=== PATIENT | male | born 1950 | race Caucasian/White ===

== ENCOUNTER 2017-05-01 11:48 | Inpatient (IN) ==
[2017-05-01] MEDS ORDERED: NS 1,000 ML IV ONE (12:22)
[2017-05-01] MEDS ORDERED: LOMOTIL PO ONE (12:23)
[2017-05-01 12:38] LABS: MANUAL DIFF NEEDED? NO
[2017-05-01 12:56] LABS: ALBUMIN 4.8 g/dL (3.5-5.0); CALCIUM 9.3 mg/dL (8.8-10.2); TOTAL BILIRUBIN 1.42 mg/dL (0.20-1.00); TOTAL PROTEIN 8.5 g/dL (6.3-8.3)
--- NOTE | 2017-05-01 13:01 | Diag Imaging Result Doc PS360 ---
EXAM: FLAT/UPRIGHT ABD/1 VIEW CHEST INDICATION: abdominal pain TECHNIQUE: 4 views COMPARISON: Chest radiograph dated 07/11/2016 FINDINGS: There is mild gaseous distention of several loops of small bowel with air-fluid levels. This is nonspecific. Consider ileus versus low-grade partial bowel obstruction. There is no evidence of large volume free abdominal gas. There is no evidence of organomegaly. There is suggestion of minimal subsegmental atelectasis versus scarring at the left lung base. The lungs are grossly clear, otherwise. Cardiac silhouette is stable. IMPRESSION: Nonspecific mild distention of small bowel. Consider ileus versus partial obstruction. Electronically signed by Herb Brown 05/01/2017 12:59 PM
[2017-05-01 13:24] LABS: BASO% 0.3 % (0.0-0.8); EOS% 1.7 % (0.0-10.0); HEMATOCRIT 59.4 % (42.0-52.0); HEMOGLOBIN 20.4 g/dL (14.0-18.0); LYMPH% 23.8 % (20.5-51.1); MCH 33.4 PG (27-31); MCHC 34.3 g/dL (33-37); MCV 97.4 FL (81-99); MONO% 17.4 % (1.7-9.3); MPV 11.5 FL (7.4-10.4); NEUT% 56.8 % (42.2-75.2); PLT 157 X1000 (130-400)
[2017-05-01 13:25] LABS: EOS# 0.11 X1000 (0.0-0.7); LYMPH# 1.52 X1000 (1.2-3.4); MONO# 1.11 X1000 (0.11-0.59)
--- NOTE | 2017-05-01 13:42 | PROVIDER DOCUMENTATION ---
This chart was entered by Darion Cabrera Scribe, acting as scribe for Doug Hardy MD. HPI-Abdominal Pain/GI Problem - General Chief Complaint: Abdominal Pain Stated Complaint: DIARRHEA,BODY CRAMPS Time Seen by Provider: 05/01/17 12:12 Source: patient Allergies/Adverse Reactions: Patient Allergies Allergy/AdvReac Type Severity Reaction Status Date / Time No Known Allergies Allergy Verified 05/01/17 12:37 Home Medications: Home Medication List Medication Instructions Recorded Confirmed Last Taken Type Clonidine HCl 0.1 mg PO BID 01/17/16 05/01/17 05/01/17 07:00 History Fluticasone 50 Mcg Nasal [place] 2 spray IN DAILY 01/17/16 05/01/17 04/30/17 History [Flonase] Hydralazine [Apresoline] 25 mg PO BID 01/17/16 05/01/17 05/01/17 07:00 History Hydrochlorothiazide 25 mg PO DAILY 01/17/16 05/01/17 05/01/17 07:00 History Meloxicam [Mobic] 15 mg PO DAILY 01/17/16 05/01/17 05/01/17 07:00 History Methocarbamol [Robaxin-750] 750 mg PO TID PRN 01/17/16 05/01/17 05/01/17 07:00 History Omeprazole [Prilosec] 40 mg PO DAILY@0700 01/17/16 05/01/17 05/01/17 07:00 History Paroxetine [Paxil] 20 mg PO BID 01/17/16 05/01/17 05/01/17 07:00 History Folic Acid 1 mg PO DAILY #0 tablet 01/23/16 05/01/17 05/01/17 07:00 Rx Levetiracetam [Keppra] 1,500 mg PO BID #120 tablet 07/02/16 05/01/17 05/01/17 07 :00 Rx Duloxetine HCl [Cymbalta] 60 mg PO DAILY 07/12/16 05/01/17 Unknown History Donepezil [Aricept] 5 mg PO QAM #0 tablet 07/15/16 05/01/17 05/01/17 07:00 Rx Gabapentin [Neurontin] 400 mg PO TID #90 capsule 07/15/16 05/01/17 05/01/17 12: 00 Rx Hydroxyzine HCl [Hydroxyzine HCl] 25 mg PO DAILY PRN 05/01/17 05/01/17 04/30/17 21:00 History - History of Present Illness-ABD Nature of Presenting Problems: patient is a 66 y/o M that presents with 4 days of abdominal cramping and diarrhea. no n/v, fever/chills Abdominal Pain Onset Location: reports: generalized abdomen Quality of Pain: reports: cramping Severity in ED: reports: moderate Onset/Duration: reports: gradual, 4 days ago Timing: reports: still present Activities at Onset: reports: none Modifying Factors: improves with: nothing Associated Symptoms: reports: diarrhea, nausea. denies: chest pain, fever/ chills, genitourinary problems, shortness of breath, vomiting Similar Symptoms Previously?: Yes Recently seen or treated by another doctor?: No Review of Systems - Adult - REVIEW OF SYSTEMS - ADULT Constitutional: denies: chills, fever Eyes: reports: no symptoms reported Ears, Nose, Mouth & Throat: reports: no symptoms reported Cardiovascular: reports: no symptoms reported Respiratory: denies: cough, shortness of breath, wheezing Gastrointestinal: reports: abdominal pain, diarrhea. denies: nausea, vomiting Genitourinary: reports: no symptoms reported Musculoskeletal: reports: no symptoms reported Integumentary: reports: no symptoms reported Neurological: reports: no symptoms reported Psychiatric: reports: no symptoms reported Endocrine: reports: no symptoms reported Hematologic/Lymphatic: reports: no symptoms reported Allergic/Immunologic: reports: no symptoms reported All Other Systems: Reviewed and Negative Past History - Adult - PAST MEDICAL HISTORY-ADULT Review of Records: reports: Old Records Reviewed, Nursing Assessment Review, Medications Reviewed Cardiovascular: reports: HTN, IA Obstetrical/Gynecological: reports: denies history Genitourinary: reports: denies history Musculoskeletal: reports: denies history Neurological: reports: CVA, Seizures/Epilepsy Psychiatric: reports: anxiety Endocrine/Immune: reports: denies history Other Conditions: reports: denies history Additional History: lymphoma - PRIOR SURGERIES/PROCEDURES Surgical/Procedure History: reports: bowel surgery (colon resection), other ( finger amputation ) - IMMUNIZATION STATUS Childhood Immunizations: See Nurse Assessment Flu Vaccine: See Nurse Assessment - FAMILY HISTORY Family History: reviewed, not pertinent Physical Exam-General - PHYSICAL EXAM-ADULT Initial Vital Signs Reviewed: Yes - CONSTITUTIONAL General Appearance: alert, mild distress - EYES Eyes: PERRL/EOMI, pink conjunctivae - HEAD, EARS, NOSE, MOUTH & THROAT HENMT: normocephalic/atraumatic, normal ENT inspection, other (dry oral mucosa) - NECK Neck: full range of motion, normal inspection - RESPIRATORY Respiratory: lungs clear, normal breath sounds, no respiratory distress, no accessory muscle use - CARDIOVASCULAR Cardiovascular: no gallop, no murmur, tachycardia - GASTROINTESTINAL (ABDOMEN) Abdominal Exam: normal bowel sounds, soft, no organomegaly, no pulsatile mass, tenderness (generalized) - MUSCULOSKELETAL Extremity: normal range of motion, normal inspection - SKIN Integumentary: normal color, warm/dry - NEUROLOGIC Neurologic: 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 as tested, no motor/sensory deficits - PSYCHIATRIC Psych/Mental Status: normal mood/affect, normal thought content, oriented x 3 Progress - PLAN OF CARE/RESULTS Progress/Plan/Lab Results: Vital Signs - 8 hr 05/01/17 12:01 Temperature 98.0 F Pulse Rate 133 H Respiratory Rate 18 Blood Pressure 150/100 O2 Sat by Pulse Oximetry 100 Orders Category Date Time Status CBC WITH ELECTRONIC DIFF [HEME] Stat Lab 05/01/17 12:18 Uncollected COMPREHENSIVE METABOLIC PANEL [CHEM] Stat Lab 05/01/17 12:18 Ordered Vital Signs Temp Pulse Resp BP Pulse Ox 05/01/17 12:01 98.0 F 133 H 18 150/100 100 No Known Allergies Allergy (Verified 05/01/17 12:37) Clonidine HCl 0.1 mg PO BID 01/17/16 Fluticasone 50 Mcg Nasal [place] [Flonase] 2 spray IN DAILY 01/17/16 Hydralazine [Apresoline] 25 mg PO BID 01/17/16 Hydrochlorothiazide 25 mg PO DAILY 01/17/16 Meloxicam [Mobic] 15 mg PO DAILY 01/17/16 Methocarbamol [Robaxin-750] 750 mg PO TID PRN 01/17/16 Omeprazole [Prilosec] 40 mg PO DAILY@0700 01/17/16 Paroxetine [Paxil] 20 mg PO BID 01/17/16 Folic Acid 1 mg PO DAILY #0 tablet 01/23/16 Levetiracetam [Keppra] 1,500 mg PO BID #120 tablet 07/02/16 Duloxetine HCl [Cymbalta] 60 mg PO DAILY 07/12/16 Donepezil [Aricept] 5 mg PO QAM #0 tablet 07/15/16 Gabapentin [Neurontin] 400 mg PO TID #90 capsule 07/15/16 Hydroxyzine HCl [Hydroxyzine HCl] 25 mg PO DAILY PRN 05/01/17 I&O 04/30/17 05/01/17 05/02/17 06:59 06:59 06:59 Output Total Balance - / -30 Laboratory 05/01/17 05/01/17 12:29 12:29 WBC 6.39 RBC 6.10 Hgb 20.4 H* Hct 59.4 H MCV 97.4 MCH 33.4 H MCHC 34.3 RDW Std Deviation 14.7 H Plt Count 157 MPV 11.5 H Immature Gran % (Auto) 0.0 Neut % (Auto) 56.8 Lymph % (Auto) 23.8 [place] % (Auto) 17.4 H Eos % (Auto) 1.7 Baso % (Auto) 0.3 Immature Gran # (Auto) 0.00 Neut # (Auto) 3.63 Lymph # (Auto) 1.52 [place] # (Auto) 1.11 H Eos # (Auto) 0.11 Baso # (Auto) 0.02 Sodium 131 L Potassium 4.0 Chloride 89 L Carbon Dioxide 27 Anion Gap 15 BUN 32 H Creatinine 1.8 H Estimated GFR/1.73 m2 38 BUN/Creatinine Ratio 18 Glucose 107 H Calculated Osmolality 270 Calcium 9.3 Total Bilirubin 1.42 H AST 35 H ALT 33 Alkaline Phosphatase 87 Total Protein 8.5 H Albumin 4.8 Globulin 3.7 Albumin/Globulin Ratio 1.3 Result Diagrams: 05/01/17 12:29 05/01/17 12:29 - XRAY 1 XRAY Study: Chest, Abdomen Impression: Abnormal XRAY Interpretation: nonspecific mild distention of small bowel,consider ileus vs partial obstru - CONSULTS/PCP/HOSPITALIST Notification #1 *Consult/PCP/Hospitalist*: Doc with hospitalist Time Discussed: 13:39 Reason/Comments: will admit Consult Disposition: Will see in ED, Admit Departure - Departure Date of Disposition Decision: 05/01/17 Time of Disposition Decision: 13:39 DIAGNOSIS: Volume depletion, gastrointestinal loss, Ileus Disposition: ADMITTED INPATIENT 09 Certified Medical Emergency: Emergent Condition: Stable Referrals and Follow-Ups: Adeline Burns CRNP [Primary Care Provider] - - Critical Care Note This patient required my direct & personal management of CC.: No Attestation - Physician/ ALEJANDRO Attestation The physician spent face to face time with patient:: Yes Advanced Practice Provider documentation review:: Supervising physician onsite and consulted in the evaluation and care of this patient. The physician did have a face to face encounter with the patient. This chart was documented by the indicated scribe, (Darion Cabrera, Esc[place]) and accurately reflects the services I performed and decisions made by me, Doug Hardy MD, as attested by the provider's signature.
[2017-05-01 13:47] LABS: URINE CULTURE NEEDED? NO; URINE SOURCE CLEAN CATCH
[2017-05-01 14:02] LABS: URINE MICRO REVIEW NEEDED? YES
[2017-05-01 14:08] LABS: BILIRUBIN URINE SMALL (NEGATIVE); BLOOD URINE NEGATIVE (NEGATIVE); COLOR ORANGE; GLUCOSE URINE NEGATIVE (NEGATIVE); LEUKOCYTES URINE NEGATIVE (NEGATIVE); NITRITE URINE NEGATIVE (NEGATIVE); PH URINE 5.5; PROTEIN URINE 50 mg/dL (NEGATIVE); SP GRAVITY URINE 1.029; TURBIDITY URINE HAZY (CLEAR); UR EPITHELIAL CELLS <10 /HPF (<10); URINE BACTERIA NEGATIVE /HPF; URINE RBC <10 /HPF (<10); URINE WBC <10 /HPF (<10); UROBILINOGEN URINE 2 mg/dL (NORMAL)
--- NOTE | 2017-05-01 14:20 | Diag Imaging Result Doc PS360 ---
ABDOMEN/PELVIS W/O CONTRAST - 05/01/2017 INDICATION: ileus, aimee TECHNIQUE: A CT dose reduction protocol was used. COMPARISON: 05/27/2014 FINDINGS: There is some COPD and pulmonary scarring in the lung bases similar to prior. There has been total colectomy with right lower quadrant ileostomy. Most of the distal small bowel is slightly dilated up to about 3 cm. The appearance is nonspecific. No transition point. There are calcified gallstones in the gallbladder. No gallbladder distention or inflammation. No radiodense renal stones. No hydronephrosis or hydroureter. No free air or free fluid. Urinary bladder, prostate, and rectal stump are normal. There are advanced degenerative changes of the spine. No acute or suspicious bony lesion. IMPRESSION: 1. Total colectomy with right lower quadrant ileostomy. There are some mildly dilated loops of small bowel distally that appear nonspecific. Overall nonobstructed. 2. Gallstones in the gallbladder. 3. No acute renal abnormality. Electronically signed by Seven Hardwick 05/01/2017 2:17 PM
[2017-05-01 14:22] LABS: IRON SATURATION 13 %; TIBC 418 ug/dL; TOTAL IRON 55 ug/dL (53-167); UNBOUND IRON 363 ug/dL (112-346)
[2017-05-01 14:31] LABS: URINE CASTS NONE SEEN
[2017-05-01] MEDS ORDERED: ZOFRAN IV PRN (14:46)
[2017-05-01] MEDS ORDERED: HYDROXYZINE PO PRN (14:46)
[2017-05-01] MEDS ORDERED: ROBAXIN PO PRN (14:46)
[2017-05-01] MEDS ORDERED: LEVAQUIN 500 MG/D5W 500 MG/100 ML IVPB IV SCH (17:15)
[2017-05-01] MEDS: FLAGYL 500 MG/NS 500 MG/100 ML IVPB IV SCH (17:45)
[2017-05-01] MEDS: NEURONTIN PO SCH (17:46)
--- NOTE | 2017-05-01 19:59 | HISTORY AND PHYSICAL ---
PRIMARY CARE PHYSICIAN: SANDRA Lu. CHIEF COMPLAINT: Abdominal pain, and generalized cramping. HISTORY OF PRESENT ILLNESS: Mr. Lynch is a 66-year-old, male with a history of B-cell lymphoma, hypertension, depression and anxiety, GERD and is status post colectomy with colostomy who presents to our facility with a 2 days of generalized cramping, bilateral lower quadrant abdominal pain as well as right upper quadrant abdominal pain and worsening diarrhea. He reports he has had 10-11 bowel movements that have completely filled up his colostomy bag. He reports generalized muscle cramping especially in his hands. He denies any hematochezia , but does report seeing what he calls black tobacco-looking substance in his stool. He has been nauseous but had not vomited. He denies any chest pain or shortness of breath. No fevers or chills. When he got to the ER today he had labs and diagnostics done. He was noted to be hemoconcentrated with a hemoglobin of 20.4 and hematocrit 59.4. He was also noted to have an acute kidney injury, elevated liver function tests and mild hyponatremia. Abdomen x-ray revealed ileus versus partial small-bowel obstruction. CT of the abdomen and pelvis subsequently showed mild dilated loops of small bowel that appear nonspecific. Otherwise there was no acute abnormalities , gallstones in the gallbladder were noted. He is hemodynamically stable. He is now going to be admitted for further treatment and evaluation. PAST MEDICAL HISTORY: 1. History B-cell lymphoma. 2. 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 3. Hypertension. 4. GERD. 5. Chronic pain. 6. Depression and anxiety. 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 ALLERGIES: Morphine and prednisone. SOCIAL HISTORY: He is . He is disabled. He reports he rarely drinks although review of history shows that he has a significant alcohol history. He denies smoking cigarettes but does report about a one-third can of oral tobacco a day. FAMILY HISTORY: Noncontributory. REVIEW OF SYSTEMS: Fourteen-point review of systems obtained and found to be negative with the exception of the HPI. HOME MEDICATIONS: Clonidine 0.1 mg p.o. b.i.d. Aricept 5 mg a.m. Cymbalta 60 mg daily. Fluticasone 2 sprays inhaled daily. Folic acid 1 mg daily. Neurontin 400 mg p.o. 3 times daily. Apresoline 25 mg b.i.d. Hydrochlorothiazide 25 mg p.o. daily. Hydroxyzine 25 mg daily. Keppra 1500 mg b.i.d. Mobic 1500 mg daily. Robaxin 750 mg p.o. 3 times daily. Prilosec 40 mg daily. Paxil 20 mg b.i.d. PHYSICAL EXAMINATION: VITAL SIGNS: Blood pressure is 150/54, heart rate is 96, respiratory rate is 20 , O2 saturation 96% on room air, temperature is 98.6 degrees. GENERAL: This is a well-developed, well-nourished, male, lying in hospital bed in no acute distress. NEUROLOGIC: He is awake, alert, oriented and follows commands without focal deficits. HEENT: Head is atraumatic and normocephalic. His pupils are equal, round, and reactive to light. Oral mucosa is dry. Trachea is midline. There is no JVD. CHEST: Clear to auscultation bilaterally. CV: Regular rate and rhythm. S1-S2 is noted. No murmurs. GI: Soft, with significant pain to palpation on both lower quadrants, and in the right upper quadrant he has no rigidity, and colostomy is noted to the right lower quadrant. EXTREMITIES: Without edema, clubbing or cyanosis. Pulses are palpable bilaterally. DIAGNOSTIC DATA: Abdomen x-ray and CT, please see HPI. WBC 6.39, hemoglobin 20.4, hematocrit 59.4, platelet count 157,000. Sodium 131, potassium 4.0, chloride 89, CO2 27 , anion gap 15, BUN 32, creatinine 1.8, glucose 107, calcium 9.3, magnesium 2. Iron 55, TIBC 418, percent saturation 13, unsaturated iron binding 363, T bilirubin 1.42, AST 35, ALT 33. Protein 8.5 , albumin 4.8. B12 533, folate 20.7. UA is negative for acute process. Random creatinine 534.9, random sodium 10, chloride less than 10. ASSESSMENT AND PLAN: 1. Abdominal pain and diarrhea: We are going to check stool studies and start Levaquin and Flagyl. We will make sure and check for Clostridium difficile. Will continue IV fluids and antiemetics. 2. Significant volume depletion with hemoconcentration: We will continue aggressive IV fluids and follow his hemoglobin and hematocrit. 3. Acute kidney injury: Likely volume related on top of use of the hydrochlorothiazide and Mobic. Will discontinue does medications and continue IV fluids. CT of the abdomen did not show any obstruction. 4. Seizure disorder: Continue Keppra, chronic and stable. 5. Hypertension: Will continue his clonidine and add p.r.n. medication if necessary. 6. Hypovolemic hyponatremia: We will continue IV fluids and hold the hydrochlorothiazide. 7. If there is no improvement in his abdominal pain and diarrhea would consider GI consultation. We are awaiting stool studies. 8. Deep vein thrombosis prophylaxis with sequential compression devices. 9. Further recommendations to follow. Dictated by SANDRA Carias for Padilla Scott MD cc: SANDRA Carias MD I have seen and examined patient and have discussed the above plan with the patient. High Output in ileostomy Abdominal pain Volume depletion MTDD
[2017-05-01] MEDS ORDERED: HEPARIN SUBQ SCH (21:00)
[2017-05-01] MEDS: NS 1,000 ML IV SCH (21:22)
[2017-05-01] MEDS: APRESOLINE PO SCH (21:31)
[2017-05-01] MEDS: KEPPRA PO SCH (21:31)
[2017-05-01] MEDS: PAXIL PO SCH (21:31)
[2017-05-01] MEDS: CATAPRES PO SCH (21:31)
[2017-05-02] MEDS: FLAGYL 500 MG/NS 500 MG/100 ML IVPB IV SCH ×3 (00:24→10:57)
[2017-05-02] MEDS: NS 1,000 ML IV SCH ×4 (02:30→17:59)
[2017-05-02] MEDS: PRILOSEC PO SCH (06:08)
[2017-05-02 06:10] LABS: HEMATOCRIT 52.6 % (42.0-52.0); HEMOGLOBIN 18.1 g/dL (14.0-18.0); MCH 34.6 PG (27-31); MCHC 34.4 g/dL (33-37); MCV 100.6 FL (81-99); MPV 11.5 FL (7.4-10.4); RBC 5.23 XMIL (4.7-6.1)
[2017-05-02 06:18] LABS: CALCIUM 7.8 mg/dL (8.8-10.2); POTASSIUM 4.4 mmol/L (3.5-5.1)
[2017-05-02] MEDS: FLONASE NAS SCH (09:40)
[2017-05-02] MEDS: KEPPRA PO SCH ×2 (09:41→21:35)
[2017-05-02] MEDS: CYMBALTA PO SCH (09:41)
[2017-05-02] MEDS: NEURONTIN PO SCH ×3 (09:41→17:59)
[2017-05-02] MEDS: CATAPRES PO SCH ×2 (09:41→21:35)
[2017-05-02] MEDS: FOLIC ACID PO SCH (09:41)
[2017-05-02] MEDS: ARICEPT PO SCH (09:41)
[2017-05-02] MEDS: PAXIL PO SCH ×2 (09:41→21:35)
[2017-05-02] MEDS: APRESOLINE PO SCH ×2 (09:42→21:35)
--- NOTE | 2017-05-02 14:59 | PROGRESS NOTE ---
DATE: 05/02/2017 SUBJECTIVE: Today Mr. Lynch refers to be doing a lot better. He continues to have a high output from his ostomy bag, but otherwise he does not have any major complaint except for mild abdominal discomfort. OBJECTIVE: Vital Signs: Blood pressure is 112/71, pulse of 78, respirations 16, temperature 97.7 degrees. General: Mr. Lynch is a 66-year-old male. He is in bed, does not seem to be in any remarkable distress. HEENT: Mucosa is slightly dry. Anicteric. Acyanotic. Neck: Supple. Chest: Clear. Cardiovascular: Regular rate and rhythm. No murmurs, no rubs. No gallops. Abdomen: Soft. There is an old anterior surgical scar in the in the entire anterior midline abdominal wall. There is a right side ostomy bag. Extremities: No pedal edema. Central Nervous System: The patient is awake, alert, and oriented x4. There is no focal neurological deficit. LABORATORY DATA: WBC is 5.88, hemoglobin is 18.1, platelet count of 120,000. Chemistry is reviewed. Creatinine is down to 1.8, BUN is 36. A CT scan of the abdomen and pelvis shows gallstone in the gallbladder. No acute renal abnormality. Total colectomy with right lower quadrant ileostomy. ASSESSMENT: 1. Abdominal pain with high ileostomy output, likely secondary to enteritis. So far, stool cultures have been unremarkable. Clostridium difficile is negative. I will, therefore, discontinue the current antibiotics since I do not think this is infectious. 2. Volume depletion with hemoconcentration. We are going to continue with the intravenous fluids. 3. Acute kidney injury secondary to dehydration. 4. History of seizure disorders. 5. Hypovolemic hyponatremia. We will continue with the intravenous fluids. 6. Cholelithiasis. This could potentially also be causing some of his discomfort. However, the patient does not have clinical manifestations of acute cholecystitis. We will, however, do a right upper quadrant limited ultrasound to rule this out. cc: Padilla Scott MD
--- NOTE | 2017-05-02 16:13 | Diag Imaging Result Doc PS360 ---
EXAM: US GB < RUQ (LIMITED) HISTORY: cholelithiasis. R/O Cholecystitis TECHNIQUE: Right upper quadrant ultrasound COMMENT: The liver is hyperechoic. The inferior vena cava is not well demonstrated. The aorta is obscured. Right kidneys without evidence of hydronephrosis or mass. There are multiple stones in the gallbladder with shadowing. The gallbladder is nondistended. There is no sonographic Beverly sign and no evidence of biliary dilatation, the common bile duct measuring 5 mm. There is antegrade flow in the portal vein. The pancreas is largely obscured. There are no abnormal fluid collections present. IMPRESSION: Cholelithiasis. No evidence of acute cholecystitis. Hepatic steatosis. Electronically signed by Kulwant Thompson 05/02/2017 4:11 PM
--- NOTE | 2017-05-02 18:48 | CONSULTATION ---
DATE OF CONSULTATION: 05/02/2017 ATTENDING PHYSICIAN: Dr. Scott. PRIMARY CARE PHYSICIAN: Nurse Practitioner Adeline Burns. REASON FOR CONSULTATION: Diarrhea. HISTORY OF PRESENT ILLNESS: Mr. Lynch is a 66-year-old male who has a history of total colectomy and end ileostomy secondary to toxic megacolon secondary to C. difficile colitis 2 years ago, history of diffuse large B-cell lymphoma status post chemotherapy being followed by Dr. Ochoa and Dr. Annabel Yeh, has been in remission for the last 2 years who was admitted to the hospital yesterday evening for abdominal cramping and diarrhea, increasing ostomy output. Per the patient he was feeling fine until Friday when he started having abdominal cramping in the right upper quadrant and worsening diarrhea. He had to empty his colostomy bag more than usual and he was having liquid watery stools which were brown in color. He also noted some dark stools but on admission his hematocrit was above normal and he was hemoconcentrated secondary to dehydration. In the hospital he had stool studies done which are currently in lab and he was given IV fluids and he is feeling better. CT scan showed mild dilated loops of small bowel nonspecific and also showed evidence of gallstones in the gallbladder. The patient denies any fevers , rigors, or chills. He does feel nauseous and throws up. He denies any vomiting blood. Patient denies any history of sick contacts. He ate [employer] sports the day before his symptoms started and he bought them from a local [employer]. The patient denies any similar illness in the recent past. PAST MEDICAL HISTORY: 1. Diffuse large B-cell lymphoma, being followed Dr. Ochoa and currently in remission for the last [address] Ochoa in March 2017. 2. History of toxic megacolon requiring total colectomy. 3. C. difficile colitis. 4. Hypertension. 5. GERD. 6. Chronic pain. 7. Depression, anxiety. SURGICAL HISTORY: Complete colectomy and end ileostomy, amputation of index finger with MRSA, cervical laminectomy, Port-A-Cath placement, colostomy. ALLERGIES: To morphine and prednisone. SOCIAL HISTORY: He is . He is disabled. He has a history of chewing tobacco. He does have history of alcohol use in the past. FAMILY HISTORY: Noncontributory. REVIEW OF SYSTEMS: Denies any current fevers, rigors, chills, chest pain, shortness of breath, dyspnea. Denies any genitourinary complaints. Denies history of vomiting or passing blood in the stools. HOME MEDICATIONS: Were reviewed. MEDICATIONS IN THE HOSPITAL INCLUDED: Clonidine, donepezil, duloxetine, fluticasone, folic acid, gabapentin, hydralazine, lactobacillus, Keppra, methocarbamol, IV fluids 175 mL/ h, Prilosec, Zofran, paroxetine and 1 dose of Lomotil. He is currently NPO. PHYSICAL EXAMINATION: Temperature 97.7 degrees, pulse rate of 70, respiratory rate 16, blood pressure 112/71, saturating 90% on room air. Body weight of 206 pounds. BMI of 32.3 kg.General Appearance: Obese, lying in bed, in no acute. HEENT: No pallor. No icterus. Pupils equal, react to light. Neck: Supple. Chest: Chest is decreased. Cardiac: Regular rhythm. Abdomen: Soft, nontender, nondistended. Bowel sounds present. No guarding. No rebound. Ileostomy noted in the right lower quadrant and the stool was dark brown in color. No blood noted. Extremities: No cyanosis, clubbing, edema. Neurologic: He is alert, awake, and oriented. LABS: His hemoglobin and hematocrit is 18.1, 52.6. White count 5.8, platelet count of 120,000, MCV 100.6. Sodium 130, potassium 4.4, chloride 93, bicarb 27, anion gap 14, BUN 36, creatinine 1.4, glucose of 101, calcium is 7.8, phosphorus 3.7, magnesium 2, iron of 55, TIBC 418, percent measuring 13, ferritin of 129. AST 35, ALT 33, total bilirubin is 1.42. Alkaline phosphatase of 87, total protein 8.5, albumin of 4.8. Urinalysis showing positive protein, trace ketones, small bilirubin. He just came back from abdominal ultrasound which showed cholelithiasis and no evidence of acute cholecystitis, hepatic steatosis, CBD measuring 5 mm, antegrade flow in portal vein. CT scan abdomen and pelvis on 05/01/2017 showed total colectomy, right lower quadrant ileostomy and some mildly dilated loops of small intestine distally that appears nonspecific. Overall non obstructed. 2) Gallstones in the gallbladder. 3) No acute renal abnormality. Abdominal x-ray done on 05/01/2017 showed nonspecific mild distention of small bowel. Consider ileus versus partial obstruction. Stool studies done ova and parasites, negative. Stool Hemoccult is positive. C. difficile toxin negative. Antigen negative. Stool for white cells, few stool culture preliminary, no enteric pathogen. IMPRESSION AND PLAN: 1. Acute onset of diarrhea with dehydration and abdominal pain likely suggesting gastroenteritis. Will follow up the stool studies. It could be viral gastroenteritis. We will continue with supportive IV fluids. We will start him on Culturelle 1 capsule p.o. b.i.d. We will follow up on his hematocrit. He has a positive Hemoccult. 2. Hemoconcentration. Continue with aggressive IV fluids. We will start the patient on a full liquid diet now and advance as tolerated. 3. History of seizure disorder. Being managed by the primary team. 4. Question of alcohol use at home. We will re-educated the patient about limiting alcohol intake and starting a multivitamin once daily. 5. Elevated liver enzymes and ultrasound showing fatty liver. The patient is overweight. We counseled him about loosing weight and watching his liver enzymes as an outpatient. 6. Cholelithiasis. This could be contributing to some of his symptoms. If he continues to have abdominal pain then it might have to be evaluated by the Surgical Team. 7. We will check a hepatitis panel, ESTEBAN, and chronic liver disease workup as patient has elevated liver enzymes. 8. The above plan of care was discussed with the patient and all questions were answered. Further recommendations to follow pending hospital course. cc: MD Padilla Avilez MD Jennifer Beatty, CRNP MTDD
[2017-05-02] MEDS: CULTURELLE PO SCH (21:35)
[2017-05-03] MEDS: NS 1,000 ML IV SCH ×4 (01:45→14:33)
[2017-05-03] MEDS: PRILOSEC PO SCH (06:14)
[2017-05-03 06:35] LABS: HEMATOCRIT 45.1 % (42.0-52.0); HEMOGLOBIN 15.4 g/dL (14.0-18.0); MCH 34.7 PG (27-31); MCHC 34.1 g/dL (33-37); MCV 101.6 FL (81-99); MPV 11.3 FL (7.4-10.4); RBC 4.44 XMIL (4.7-6.1)
[2017-05-03 06:49] LABS: AGAP 11; BUN 22 mg/dL (8-22); CALCIUM 7.1 mg/dL (8.8-10.2); CHLORIDE 102 mmol/L (98-107); COSMO 271; POTASSIUM 3.5 mmol/L (3.5-5.1); SODIUM 134 mmol/L (136-145); TCO2 21 mmol/L (25-35)
[2017-05-03] MEDS: FLONASE NAS SCH (10:10)
[2017-05-03] MEDS: CULTURELLE PO SCH (10:10)
[2017-05-03] MEDS: CYMBALTA PO SCH (10:10)
[2017-05-03] MEDS: KEPPRA PO SCH (10:11)
[2017-05-03] MEDS: PAXIL PO SCH (10:11)
[2017-05-03] MEDS: ARICEPT PO SCH (10:11)
[2017-05-03] MEDS: NEURONTIN PO SCH ×2 (10:11→16:05)
[2017-05-03] MEDS: APRESOLINE PO SCH (10:11)
[2017-05-03] MEDS: FOLIC ACID PO SCH (10:11)
[2017-05-03] MEDS: CATAPRES PO SCH (10:11)
--- NOTE | 2017-05-03 11:48 | PROGRESS NOTE ---
DATE: 05/03/2017 SUBJECTIVE: Today Mr. Lynch refers to be doing a lot better. No abdominal pain. No shortness of breath. He says he has emptied his ileostomy bag only 2 times today. OBJECTIVE: Vital Signs: Blood pressure is 113/70, pulse of 65, respirations 16, temperature 97.9 degrees. General: Mr. Lynch is 66-year-old male. He is in bed, not seemingly distressed. HEENT: Mucosa is pink and moist. Anicteric. Acyanotic. Neck: Supple. Chest: Good air entry bilateral. No crepitations. No rhonchi. Cardiovascular: Regular rate and rhythm. Abdomen: Soft, nontender. There is an old anterior abdominal wall surgical scar. There is an ileostomy bag on the right abdominal wall. 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 There is no focal neurological deficit. LABORATORY DATA: WBC is 3.60, hemoglobin is down to 15.4, platelet count is 96,000. Sodium is 134, potassium is 3.5, chloride is 102, bicarb is 21. IMAGING STUDIES: Review of CT scan of the abdomen and pelvis shows gallstones in the gallbladder. A right upper quadrant ultrasound showed cholelithiasis, but no evidence of acute cholecystitis. There is hepatic steatosis. ASSESSMENT: 1. Abdominal pain with high ileostomy output secondary to gastroenteritis, this is improved. 2. Volume depletion with Hemoconcentration, improved. 3. Acute kidney injury, resolved. 4. History of seizure disorder noted. 5. Chronic hyponatremia. The patient seems to have on and off issues with his sodium, way back to October 2013, gets normalized and then goes down. He is on multiple medications which I think are contributing to that, including paroxetine, which is an SSRI. We have advised him to follow up with his primary care provider to see if they will be able to change that medication. Until then, we have advised that he does fluid restriction for now. 6. Cholelithiasis. The patient is not clinically in any acute cholecystitis, and a follow-up ultrasound also does not show any acute evidence of cholecystitis. He has been advised however to follow up with Surgery, so that they can evaluate him on an outpatient basis to make a decision when that can be removed. 7. Hepatic steatosis noted. 8. The patient has been evaluated by GI and multiple hepatitis studies have been ordered, some of which will not be ready until patient is discharged. So, in general, I think Mr. Lynch is doing a lot better today. Ileostomy output is considerably reduced, abdominal pain is resolved. We will going to give Mr. Lynch a regular diet today. If he is able to tolerate it, we will be able to discharge him later on today. cc: Padilla Scott MD
[2017-05-03 12:10] LABS: INR 1.08; PROTIME 11.4 Seconds (9.2-11.7); PTT 25.3 Seconds (22.0-36.0)
[2017-05-03 12:51] VITALS: BP 115/68
--- NOTE | 2017-05-03 17:44 | DISCHARGE SUMMARY ---
ADMISSION DATE: 05/01/2017 DISCHARGE DATE: 05/03/2017 DISPOSITION: Home. CONSULTATIONS DURING THIS ADMISSION: GI was consulted. Patient was seen by Dr. Ortiz. INVASIVE PROCEDURES DONE: None. IMAGING STUDIES OF SIGNIFICANCE: A CT scan of the abdomen showed total colectomy, gallstones in the gallbladder, no acute renal disease. An ultrasound of the abdomen showed cholelithiasis, no evidence of acute cholecystitis, and hepatic steatosis. FOLLOWUP: 1. Dr. Ortiz. 2. Dr. Lima for the cholelithiasis. PRIMARY CARE PROVIDER: SANDRA Lu. ADMISSION DIAGNOSES: 1. Abdominal pain and diarrhea. 2. Significant volume depletion and hemoconcentration. 3. Acute kidney injury. 4. History of seizure disorder. DIAGNOSES AT THE TIME OF DISCHARGE: 1. Abdominal pain with high ileostomy output, secondary to gastroenteritis. This has improved. 2. Volume depletion with hemoconcentration. Improved. 3. Acute kidney injury. This is resolved. Patient's hydrochlorothiazide has been withheld. 4. History of seizure disorder. Noted. 5. Chronic hyponatremia. Patient has been advised to withhold the hydrochlorothiazide, and also discuss with primary care provider about Paxil. 6. Cholelithiasis without cholecystitis. The patient is advised to follow up with Surgery. 7. Hepatic steatosis. A lot of GI workup with still pending results. Patient will review this with Dr. Ortiz. DISCHARGE MEDICATIONS: 1. Methocarbamol 750 p.o. t.i.d. 2. Paroxetine 20 mg b.i.d. 3. Omeprazole 40 mg daily. 4. Clonidine 0.1 b.i.d. 5. Hydralazine 25 mg b.i.d. 6. Folic acid 1 mg daily. 7. Levothyroxine 1500 b.i.d. 8. Cymbalta 60 mg daily. 9. Donepezil 5 mg daily. 10. Gabapentin 400 three times per day. 11. Lactobacillus 1 tablet p.o. b.i.d. MEDICATIONS THAT HAVE BEEN DISCONTINUED: Hydrochlorothiazide because of renal problems and sodium issues. Also, meloxicam because of acute kidney injury on presentation. CHIEF COMPLAINT: Abdominal pain. HISTORY OF PRESENTING COMPLAINT: Mr. Lynch is a 66-year-old male who has a total colectomy because of C. difficile infection. The patient with an ileostomy bag. Came in because of excessive output. A CT scan of the abdomen was done, which showed slightly dilated up to 3 cm of distal small bowel. Appearance was nonspecific. This was interpreted to be enteritis, likely viral etiology. Patient was admitted for further medical care. HOSPITAL COURSE: IV fluid was started. Initially, antibiotics was given. However, upon all cultures becoming negative, we discontinued the antibiotics. GI was consulted. Patient was seen by Dr. Ortiz. Because of the mildly elevated liver enzymes and issues with liver on imaging, he requested further lab work to look for chronic liver disease, which the results will be reviewed with him on an outpatient basis. Today, Mr. Lynch refers to be doing fine, has very reduced output in the ostomy bag, and he is ready to be discharged. He is going to follow up with his primary care doctor. He is also going to follow up with Dr. Ortiz and Dr. Lima for cholelithiasis. At the time of discharge, pending labs were antitrypsin, ESTEBAN, antimitochondrial, ceruloplasmin, and hepatitis panel, which were all pending. Patient will review this with Dr. Ortiz. TIME SPENT FOR DISCHARGE: 37 minutes. cc: Padilla Scott MD
--- NOTE | 2017-05-05 06:38 | EKG Report ---
Test Performed on : 05/01/2017 2:23:44 PM Test Reason : PALPS Blood Pressure : / mmHG Vent. Rate : 095 BPM Atrial Rate : 095 BPM P-R Int : 180 ms QRS Dur : 066 ms QT Int : 344 ms P-R-T Axes : 048 007 067 degrees QTc Int : 432 ms Normal sinus rhythm. Normal ECG No previous ECGs available Unconfirmed Result
[2017-05-05 10:35] LABS: HEPATITIS PROFILE ACUTE SEE COMMENTS
== END 2017-05-03 16:06 | disposition home or self-care (01) ==
LOC: ED 11:48 → 4N 14:13
PROVIDERS: ATTEND Internal Medicine

== ENCOUNTER 2019-07-22 04:56 | Inpatient (IN) ==
[2019-07-22] MEDS ORDERED: ZOFRAN IV ONE (05:36)
[2019-07-22] MEDS ORDERED: NS 1,000 ML IV ONE (05:36)
[2019-07-22] MEDS ORDERED: MORPHINE IV ONE (05:38)
--- NOTE | 2019-07-22 05:39 | PROVIDER DOCUMENTATION ---
HPI-Abdominal Pain/GI Problem - General Chief Complaint: Abdominal Pain Stated Complaint: STOMACH PAIN Time Seen by Provider: 07/22/19 05:24 Allergies/Adverse Reactions: Patient Allergies Allergy/AdvReac Type Severity Reaction Status Date / Time No Known Allergies Allergy Verified 07/22/19 07:50 Home Medications: Home Medication List Medication Instructions Recorded Confirmed Last Taken Type Clonidine HCl 0.1 mg PO BID 01/17/16 07/22/19 05/01/17 07:00 History Omeprazole [Prilosec] 40 mg PO DAILY@0700 01/17/16 07/22/19 05/01/17 07:00 History Levetiracetam [Keppra] 1,500 mg PO BID #120 tablet 07/02/16 07/22/19 05/01/17 07:00 Rx Gabapentin [Neurontin] 400 mg PO TID #90 capsule 07/15/16 07/22/19 05/01/17 12:00 Rx Duloxetine HCl [Cymbalta] 60 mg PO DAILY 02/12/18 07/22/19 Unknown History Sucralfate 1 gm PO TID 02/12/18 07/22/19 Unknown History Fluticasone/Umeclidin/Vilanter 1 puff INH DAILY 07/22/19 07/22/19 Unknown History [Freddy Soto 100-62.5-25] - History of Present Illness-ABD Nature of Presenting Problems: Pt is a 69 y/o male who presents with c/o abd pain. The pain is present in the upper abd and is about a 8 on pain scale. Has been constant since Friday night. Denies any nausea or vomiting or fever or chills or urinary symptoms. per pt he had minimal output in colostomy. Review of Systems - Adult - REVIEW OF SYSTEMS - ADULT Constitutional: denies: no symptoms reported Eyes: denies: no symptoms reported Ears, Nose, Mouth & Throat: denies: no symptoms reported Cardiovascular: denies: no symptoms reported Respiratory: reports: see HPI Gastrointestinal: reports: see HPI Genitourinary: reports: see HPI. denies: no symptoms reported Musculoskeletal: denies: no symptoms reported Integumentary: denies: no symptoms reported Neurological: denies: no symptoms reported Psychiatric: denies: no symptoms reported Endocrine: denies: no symptoms reported Hematologic/Lymphatic: denies: no symptoms reported Allergic/Immunologic: denies: no symptoms reported Past History - Adult - PAST MEDICAL HISTORY-ADULT Review of Records: reports: Old Records Reviewed, Nursing Assessment Review, Medications Reviewed, Social history reviewed & non-contributory. Major Childhood Illnesses: reports: denies history Cardiovascular: reports: HTN, [place] Respiratory: reports: denies history Gastrointestinal: reports: denies history Obstetrical/Gynecological: reports: denies history Genitourinary: reports: denies history Musculoskeletal: reports: denies history Neurological: reports: CVA, Seizures/Epilepsy Psychiatric: reports: anxiety Endocrine/Immune: reports: denies history Other Conditions: reports: denies history Additional History: lymphoma - PRIOR SURGERIES/PROCEDURES Surgical/Procedure History: reports: bowel surgery (colon resection), other (finger amputation ) - IMMUNIZATION STATUS Childhood Immunizations: See Nurse Assessment Flu Vaccine: See Nurse Assessment - FAMILY HISTORY Family History: reviewed, not pertinent Physical Exam-General - PHYSICAL EXAM-ADULT Initial Vital Signs Reviewed: Yes - CONSTITUTIONAL General Appearance: appears well, alert, no apparent distress - EYES Eyes: PERRL/EOMI - HEAD, EARS, NOSE, MOUTH & THROAT HENMT: normocephalic/atraumatic, moist mucous membranes, normal ENT inspection, pharynx normal - NECK Neck: supple - RESPIRATORY Respiratory: lungs clear, normal breath sounds, no respiratory distress, no accessory muscle use - CARDIOVASCULAR Cardiovascular: normal peripheral pulses, regular rate, rhythm, no murmur - GASTROINTESTINAL (ABDOMEN) Abdominal Exam: guarding, tenderness (Epigastric and RUQ) - MUSCULOSKELETAL Back Exam: no CVA tenderness, no vertebral tenderness Extremity: no pedal edema - SKIN Integumentary: normal color, warm/dry - NEUROLOGIC Neurologic: grossly normal - PSYCHIATRIC Psych/Mental Status: normal mood/affect, oriented x 3 Progress - PLAN OF CARE/RESULTS Progress/Plan/Lab Results: Vital Signs - 8 hr 07/22/19 04:58 Temperature 98.1 F Pulse Rate 99 H Respiratory Rate 18 Blood Pressure 130/86 O2 Sat by Pulse Oximetry 96 Result Diagrams: 07/22/19 05:16 07/22/19 05:16 - REASSESSMENT Reassessment #1 Time Reassessed: 07:17 Status: unchanged (shift change reassessment: pt presents w/ abd pain and little to no output per ileostomy since yesterday. he is nauseous but denies emesis. hx is remarkable as follows: PROCEDURE DATE: 05/30/2014 PROCEDURE: Total abdominal colectomy with ileostomy and Sánchez pouch. SURGEON: Tomas Russo MD POSTOPERATIVE DIAGNOSIS: Toxic megacolon secondary to C. difficile colitis.CT reveals ileus w/ possible obstruction complicating ileostomy. will place NG, consult for admission. NG has been ordered; will consult for admission and surgical consultation.) Reassessment #2 Time Reassessed: 08:05 Status: unchanged (NG placed w/o difficulty. 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 Mag. ordered.) - CONSULTS/PCP/HOSPITALIST Notification #1 *Consult/PCP/Hospitalist*: Whitney Russo Time Discussed: 08:07 Consult Disposition: Admit (Dr. Russo asks that surgeon promotions producer be consulted.) #2 Consult: Hospitalist Time Discussed: 08:18 Consult Disposition: Admit - CHANGE OF SHIFT REPORT (ED Provider) 1 Report Given and Care Transferred to:: Dr Vital Time of Transfer: 07:00 Items Pending: CT/MRI Results Departure - Departure Date of Disposition Decision: 07/22/19 Time of Disposition Decision: 08:18 DIAGNOSIS: Abdominal pain, Ileus Disposition: ADMITTED INPATIENT 09 Certified Medical Emergency: Emergent Condition: Stable Additional Instructions: ED Follow Up Instructions: You have been treated by a care provider in the Emergency Department. These instructions are being provided to you so you can have an understanding of how to care for yourself upon discharge. Upon discharge from the Emergency Department, you are responsible for making arrangements for follow-up care by a physician of your choice. Take all prescribed medications as directed. Return to the Emergency Department immediately for any new or worsening symptoms. You may call the Physician Referral phone number at [phone] to obtain a list of Physicians who are taking new patients. Referrals and Follow-Ups: Georgie Mcdermott MD [Primary Care Provider] - - Critical Care Note This patient required my direct & personal management of CC.: No Attestation - Physician/ ALEJANDRO Attestation Patient care was provided by Advanced Practice Provider:: No The physician spent face to face time with patient:: Yes Advanced Practice Provider documentation review:: Supervising physician onsite and consulted in the evaluation and care of this patient. The physician did have a face to face encounter with the patient.
[2019-07-22 05:50] LABS: BASO# 0.03 X1000 (0.0-0.2); BASO% 0.3 % (0.0-0.8); EOS# 0.31 X1000 (0.0-0.7); EOS% 3.2 % (0.0-10.0); HEMATOCRIT 55.4 % (42.0-52.0); HEMOGLOBIN 19.2 g/dL (14.0-18.0); IMM GRAN# 0.02 X1000 (0.0-0.04); IMM GRAN% 0.2 % (0.0-0.5); LYMPH# 1.14 X1000 (1.2-3.4); LYMPH% 11.7 % (20.5-51.1); MCH 35.2 PG (27-31); MCHC 34.7 g/dL (33-37); MCV 101.5 FL (81-99); MONO# 0.88 X1000 (0.11-0.59); MPV 11.1 FL (7.4-10.4); NEUT# 7.39 X1000 (1.4-6.5); NEUT% 75.6 % (42.2-75.2); PLT 154 X1000 (130-400); RBC 5.46 XMIL (4.7-6.1); RDW 13.7 % (11.5-14.5); WBC 9.77 X1000 (4.8-10.8)
[2019-07-22 06:11] LABS: AGAP 19; ALB/GLOB RATIO 1.2; ALBUMIN 4.2 g/dL (3.5-5.0); ALKALINE PHOSPHATASE 93 U/L (32-122); AMYLASE 63 U/L (20-200); BUN 11 mg/dL (8-22); CALCIUM 9.2 mg/dL (8.8-10.2); CHLORIDE 97 mmol/L (98-107); COSMO 268; CREATININE 0.6 mg/dL (0.7-1.2); ESTIMATED GFR > 60; GLUCOSE 111 mg/dL (70-104); GOT 37 U/L (10-34); GPT 20 U/L (10-44); LIPASE 46 U/L (13-60); POTASSIUM 3.9 mmol/L (3.5-5.1); SODIUM 134 mmol/L (136-145); TCO2 18 mmol/L (25-35); TOTAL BILIRUBIN 1.17 mg/dL (0.20-1.00); TOTAL PROTEIN 7.8 g/dL (6.3-8.3)
--- NOTE | 2019-07-22 07:00 | Diag Imaging Result Doc PS360 ---
EXAM: CT ABD/PELVIS W/IV CONT ONLY HISTORY: abd pain, hx of ileostomy TECHNIQUE: CT abdomen and pelvis with intravenous contrast COMPARISON: 05/01/2017 FINDINGS: There are calcified hilar and mediastinal nodes. Development of infiltrates or fibrosis in the lower lungs with bronchiectasis. There is fatty infiltration of the liver. There are several calcified stones within the gallbladder. No adjacent inflammation. Normal spleen, pancreas, adrenal glands, and kidneys. No hydronephrosis. No aortic aneurysm. There is an ostomy in the anterior right pelvis. Mildly distended jejunal and ileal small bowel loops. The colon has been resected. No abscess. The urinary bladder is distended and normal. Prostate is not enlarged. IMPRESSION: 1.Basilar bronchiectasis with fibrosis and/or small infiltrates 2.Cholelithiasis 3.Fatty infiltration of the liver 4.Air and fluid distended jejunal and ileal loops believed to be an ileus although there is narrowing at the ostomy site which could be producing a partial obstruction. This exam was performed using automated exposure control, adjustment of mA or kV according to patient size, and/or use of iterative reconstruction technique. Electronically signed by Cirilo Williamson 07/22/2019 6:57 AM
[2019-07-22 07:10] LABS: URINE SOURCE CLEAN CATCH
[2019-07-22 07:13] LABS: BILIRUBIN URINE NEGATIVE (NEGATIVE); BLOOD URINE NEGATIVE (NEGATIVE); COLOR YELLOW; GLUCOSE URINE NEGATIVE (NEGATIVE); KETONE URINE 10 mg/dL (NEGATIVE); LEUKOCYTES URINE NEGATIVE (NEGATIVE); NITRITE URINE NEGATIVE (NEGATIVE); PROTEIN URINE TRACE mg/dL (NEGATIVE); SP GRAVITY URINE 1.031; TURBIDITY URINE CLEAR (CLEAR); UROBILINOGEN URINE NORMAL (NORMAL)
[2019-07-22 07:14] LABS: UR EPITHELIAL CELLS <10 /HPF (<10); URINE BACTERIA NEGATIVE /HPF; URINE RBC <10 /HPF (<10); URINE WBC <10 /HPF (<10)
[2019-07-22] MEDS: MORPHINE IV PRN ×4 (08:32→23:51)
[2019-07-22] MEDS: NS 1,000 ML IV SCH ×3 (08:33→23:51)
[2019-07-22] MEDS: ZOSYN 3.375 GM in NS 50 ML IV SCH ×2 (08:33→15:44)
[2019-07-22] MEDS ORDERED: NON-FORMULARY MED (Fluticasone/Umeclidin/Vilanter [Trelegy Ellipta 100-62.5-25] 1 PUFF) INH SCH (09:00)
[2019-07-22] MEDS ORDERED: NON-FORMULARY BULK MED INH SCH (09:00)
[2019-07-22] MEDS ORDERED: NS 1,000 ML IV SCH (12:30)
[2019-07-22] MEDS ORDERED: FLU VACCINE IM ONE (12:42)
[2019-07-22] MEDS ORDERED: CHLORASEPTIC SPRAY MT PRN (13:07)
[2019-07-22] MEDS ORDERED: CHLORASEPTIC SPRAY MT ONE (13:07)
--- NOTE | 2019-07-22 13:47 | HISTORY AND PHYSICAL ---
CHIEF COMPLAINT: Abdominal pain. HISTORY OF PRESENT ILLNESS: Mr. Lynch is a 69-year-old male who carries a past medical history of B-cell lymphoma, ischemic bowel that required colectomy secondary to septic process in his hand, hypertension, GERD, chronic pain, depression, anxiety, and seizures, likely alcohol induced. He came to the ED complaining of abdominal pain that had been ongoing since Friday. However, last night the pain became more sharp and would wax and wane. It was associated with some nausea this morning that was relieved by the NG tube. No vomiting. He has had a decreased output in his colostomy bag. He reports no fever, no chills, no shortness of breath. He does have some pleuritic pain from his pulmonary fibrosis, but no cardiac type chest pain. His last meal was yesterday at 3:00 in the afternoon. He reports he feels like he is passing some gas, but not like his normal. Workup in the ED with abdomen and pelvis CT showed air and fluid distended duodenal and ileal loops, believed to be an ileus although there was narrowing in the ostomy site, which could be producing a partial obstruction. He was made NPO. NG tube was placed. Laboratory Data essentially unremarkable. We will admit him with a surgical consult for further evaluation and treatment. REVIEW OF SYSTEMS: Twelve-point review of systems completely negative except for those mentioned in HPI. PAST MEDICAL HISTORY: 1. B-cell lymphoma. 2. Ischemic bowel that required colostomy secondary to a septic process in his hand. 3. Hypertension. 4. Gastroesophageal reflux disease. 5. Chronic pain. 6. Depression and anxiety. 7. Seizure likely alcohol induced. PAST SURGICAL HISTORY: 1. Colon resection. 2. 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 3. Cervical laminectomy. 4. Port-A-Cath. 5. Colostomy. 6. Two elbow surgeries. SOCIAL HISTORY: No smoking. Daily alcohol use. FAMILY HISTORY: None. ALLERGIES: No known drug allergies. HOME MEDICATIONS: 1. Daliresp 2 puffs inhaled t.i.d. 2. Requip 0.5 mg p.o. daily. 3. Clonidine 0.1 mg p.o. b.i.d. 4. Cymbalta 60 mg p.o. daily. 5. Neurontin 400 mg p.o. t.i.d. 6. Keppra 1500 mg p.o. b.i.d. 7. Prilosec 40 mg p.o. daily. 8. Carafate 1 g p.o. t.i.d. 9. Trilogy 100-62.5-25 1 puff inhaled daily. REVIEW OF SYSTEMS: A 12 point review of systems completely negative except for those mentioned in HPI. PHYSICAL EXAMINATION: VITAL SIGNS: Temperature 97.8 degrees, heart rate 68, respirations 14, blood pressure 165/82, and O2 is 98% on room air. GENERAL: Mr. Lynch is a pleasant 69-year-old male who is lying in the bed. The NG tube to suction to intermittent low wall suction in no acute distress. HEENT: Atraumatic, normocephalic. PERRL. NECK: Supple. Trachea midline. CARDIOVASCULAR: S1, S2 appreciated. No murmurs, gallops, or rubs noted. RESPIRATORY: Lung sounds clear bilaterally. GI: Soft. Quiet bowel sounds. Colostomy bag noted. There was some residual tenderness to the epigastric region. NEUROLOGIC: No focal deficits noted. SKIN: Appears to be warm, dry, and intact. LABORATORY DATA: White count 9, hemoglobin and hematocrit 19 and 55, and platelet count 154,000. Sodium 134, potassium 3.9, BUN 11, creatinine 0.6, and blood glucose is 111, T bilirubin 1.17 and AST 37. ASSESSMENT/PLAN: 1. Small bowel obstruction versus ileus. The patient has had relief with NG tube. General Surgery has been consulted. We will do a KUB in the morning. Continue with antiemetics and pain regimen. 2. Seizure disorder. We will continue him on IV Keppra since he is NPO. 3. History of B-cell lymphoma. 4. Hypertension. 5. Gastroesophageal reflux disease. 6. Depression and anxiety. 7. Ischemic bowel that required cholecystectomy secondary to septic process in his hand. 8. Chronic pain. 9. Further recommendations to follow physician evaluation, laboratory and diagnostic data. Dictated by SANDRA Prakash for Padilla Scott MD cc: MD Whitney Post MD Martha Read, MD
--- NOTE | 2019-07-22 17:43 | HISTORY AND PHYSICAL ---
ADDENDUM: Mr. Lynch got admitted today because of abdominal pain and no output in his ostomy bag. He has a history of remote B-cell lymphoma, status post treatment with Dr. Yeh. 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 He seems to be doing well until about 3 days. He started having abdominal pain and low ileostomy output. On presentation, he was evaluated. A CAT scan seems to suggest possible partial small bowel obstruction. He is being admitted for medical management and surgical consultation. Vitals are reviewed. Blood pressure is 170/100, pulse of 62, respirations 16, temperature 98.5 degrees. Physical exam remarkable is abdomen. Anterior abdominal wall has old surgical scar. There is an ileostomy on the right abdominal wall which has very minimum liquid secretions. METEOROLOGIST LIAISON: Patient is awake, alert, and oriented. DIAGNOSTIC STUDIES: CAT scan report has been reviewed as well. ASSESSMENT: 1. Partial small bowel obstruction. The patient has nasogastric tube in place. He said he feels a lot better now. We will keep him n.p.o., control his pain, and await for further recommendations from Surgery. 2. Remote history of B-cell lymphoma and seizure disorder. 3. Cholelithiasis. Patient has a plan for gallbladder removal for next month. 4. Chronic pain syndrome noted. 5. Please refer to the details of the H and P which has been dictated by the nurse practitioner in the chart. cc: Padilla Scott MD
--- NOTE | 2019-07-22 18:29 | GENERAL SURGERY CONSULTATION ---
DATE: 07/22/2019 CHIEF COMPLAINT: Nausea, vomiting, decreased ileostomy output. REASON FOR CONSULTATION: Bowel obstruction. HISTORY OF PRESENT ILLNESS: A 69-year-old gentleman who several years ago by Dr. Russo had a total abdominal colectomy for toxic colitis related to C difficile. He also has history of B-cell lymphoma, hypertension, gastroesophageal reflux disease, chronic pain, depression, anxiety, and seizures most likely alcohol-induced. NG tube was placed in the emergency department. He has felt some better since this. He also has pulmonary fibrosis. He is admitted for further management and I was consulted. REVIEW OF SYSTEMS: A 10-point review of systems is negative other than what is mentioned in his HPI. MEDICAL HISTORY: B-cell lymphoma, history of toxic colitis with total abdominal colectomy and ileostomy, hypertension, gastroesophageal reflux, chronic pain, anxiety and depression, history of alcohol-induced seizures. SURGICAL HISTORY: Total abdominal colectomy. He has had an index finger amputations, cervical laminectomy, Port-A-Cath, elbow surgery. SOCIAL HISTORY: No tobacco. Daily alcohol. FAMILY HISTORY: Reviewed and noncontributory. MEDICATIONS: Were reviewed. He takes antiepileptics as well as clonidine and some pulmonary medications. PHYSICAL EXAM: Vital signs: He is afebrile, pulse 66, blood pressure 170/100, oxygen is 97% on room air. General: He is alert, no acute distress. HEENT: There is a nasogastric tube in place. Cardiovascular: Normal rate. Pulmonary: No increased work of breathing. He is on nasal cannula O2. Abdomen: Soft, nontender. Right lower quadrant ileostomy is pink, with some small amount of liquid stool in the bag. Psychiatric: Appropriate affect. Neurologic: No gross deficits. He is not overtly tremulous. Lymphatic: No cervical or inguinal adenopathy. Peripheral vascular: Well-perfused. LABORATORIES: White count 9, hematocrit 55, platelets 154,000. Creatinine 0.6, mild elevation in his bilirubin and AST, ALT and alkaline phosphatase are normal. Lipase normal. Lactate was 1.3. Urinalysis negative for nitrites and leukocytes. I reviewed his CT scan. It shows cholelithiasis with some fibrosis in his basilar bilateral lungs. ASSESSMENT AND PLAN: A 69-year-old gentleman with findings and clinical history is concerning for bowel obstruction. Continue nasogastric tube decompression, IV hydration. Medical management will follow along. I suspect that this will resolve. He did have a large meal that prompted this couple days ago. Says he ate a lot of cabbage during this meal. I suspect that this is more of a fibrous obstructive type process, but he would be at risk for intra-abdominal adhesions. We will continue to follow along. cc: Whitney Perry MD
[2019-07-23] MEDS: MORPHINE IV PRN ×4 (05:10→20:00)
[2019-07-23 06:54] LABS: BASO# 0.01 X1000 (0.0-0.2); BASO% 0.1 % (0.0-0.8); EOS# 0.18 X1000 (0.0-0.7); EOS% 2.5 % (0.0-10.0); HEMATOCRIT 50.6 % (42.0-52.0); HEMOGLOBIN 17.3 g/dL (14.0-18.0); IMM GRAN# 0.02 X1000 (0.0-0.04); IMM GRAN% 0.3 % (0.0-0.5); LYMPH# 0.73 X1000 (1.2-3.4); LYMPH% 10.2 % (20.5-51.1); MCH 35.8 PG (27-31); MCHC 34.2 g/dL (33-37); MCV 104.8 FL (81-99); MONO# 0.53 X1000 (0.11-0.59); MONO% 7.4 % (1.7-9.3); MPV 11.3 FL (7.4-10.4); NEUT% 79.5 % (42.2-75.2); PLT 102 X1000 (130-400); RBC 4.83 XMIL (4.7-6.1); RDW 13.5 % (11.5-14.5); WBC 7.17 X1000 (4.8-10.8)
[2019-07-23 06:55] LABS: AGAP 16; BUN 12 mg/dL (8-22); CALCIUM 8.1 mg/dL (8.8-10.2); CHLORIDE 99 mmol/L (98-107); COSMO 271; CREATININE 0.6 mg/dL (0.7-1.2); ESTIMATED GFR > 60; GLUCOSE 80 mg/dL (70-104); SODIUM 136 mmol/L (136-145); TCO2 21 mmol/L (25-35)
--- NOTE | 2019-07-23 08:52 | Diag Imaging Result Doc PS360 ---
EXAM: ABDOMEN FLAT/UPRIGHT HISTORY: sbo TECHNIQUE: Two views COMPARISON: 05/01/2017 FINDINGS: There are dilated small bowel loops with air-fluid levels. No organomegaly. Prominent degenerative changes throughout the lumbar spine. There is an ostomy overlying the right iliac bone. IMPRESSION: Findings suspicious for obstruction. Electronically signed by Cirilo Williamson 07/23/2019 8:49 AM
[2019-07-23] MEDS: NON-FORMULARY BULK MED INH SCH ×2 (10:51→19:29)
[2019-07-23] MEDS: ZOFRAN IV PRN ×3 (10:52→19:59)
[2019-07-23] MEDS: NS 1,000 ML IV SCH ×2 (11:29→19:48)
--- NOTE | 2019-07-23 13:49 | GENERAL SURGERY PROGRESS NOTE ---
DATE: 07/23/2019 A little bit of liquid from his ostomy overnight. He feels some better. NG tube output has moderate. No fevers. Pulse 80, blood pressure 158/87.General: He is alert. Cardiovascular: Normal rate. Pulmonary: He is on nasal cannula. His abdomen is soft. His ileostomy is in the right lower quadrant with some liquid in the bag but no significant amount. White count 7, hematocrit 750, creatinine 0.6. ASSESSMENT AND PLAN: This is a 69-year-old gentleman admitted with bowel obstruction. He has a history of total abdominal colectomy. He does have some air-fluid levels on his x-ray this morning, consistent with ongoing obstruction versus ileus. I have encouraged him to be out of bed. We will keep the nasogastric tube decompression, IV fluids and management per the Medicine Services. Suspect this will resolve. He is high risk given his pulmonary fibrosis. We will continue to follow along. cc: Whitney Perry MD
--- NOTE | 2019-07-23 15:59 | PROGRESS NOTE ---
DATE: 07/23/2019 SUBJECTIVE: This morning Mr. Lynch refers to be doing a little better. Abdominal pain is improved. NG tube continues to be in place. However, he still has not had any remarkable output in his ileostomy. OBJECTIVE: Vital signs: Blood pressure is 160/90, pulse of 75, respirations 20, temperature 98.2 degrees. The patient was saturating 97% on room air. General: Mr. Lynch is a 69-year-old gentleman. He is in bed, no distress. Mucosa is pink and moist. Anicteric. Acyanotic. Neck: Supple. Chest: Good air entry bilaterally. Few crackles in the posterior lung travis. Cardiovascular: Regular rate and rhythm. No murmurs, no rubs, no gallops. Abdomen: Soft, distended. Bowel sounds remarkably hypoactive. There is an old surgical scar in the mid anterior abdominal wall. There is an ileostomy on the right side. Extremities: No pedal edema. 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 LABORATORY DATA: There is microcytosis with normal hemoglobin. Chemistry is completely within normal range. A KUB this morning suggests dilated small bowel loops with air-fluid levels, finding suspicious for obstruction. ASSESSMENT: 1. Small bowel obstruction. Patient has had a laparotomy in the past. It is very possible that he has adhesions causing this. There is currently NG tube in place. NPO on adequate fluid resuscitation. Surgery is on board. 2. Cholelithiasis, currently asymptomatic. 3. Chronic pain syndrome. 4. History of seizure disorder. 5. Remote history of B-cell lymphoma. 6. Pulmonary fibrosis, most likely due to previous radiation and chemotherapy side effects for the B-cell lymphoma. PLAN: In general, I think Mr. Lynch is fairly stable. There is no output in his ileostomy. His KUB this morning continues to show obstruction. Surgery is on board and will follow up with further recommendations from them. For now, he remains NPO with IV fluids, pain control and NG tube for GI decompression. cc: Padilla Scott MD
[2019-07-24] MEDS: NS 1,000 ML IV SCH ×3 (03:46→20:56)
--- NOTE | 2019-07-24 06:46 | GENERAL SURGERY PROGRESS NOTE ---
DATE: 07/24/2019 SUBJECTIVE: Patient seems to be doing okay. He still has not passed gas. He is still having NG tube output. OBJECTIVE: Vital Signs: Patient is currently afebrile. His vital signs are stable. General: No acute distress. HEENT: Normocephalic, atraumatic. Pupils equal, round, reactive to light. Mucous membranes moist. Oropharynx benign. Neck: Supple. Trachea midline. Cardiovascular: Regular rate and rhythm. Lungs: Grossly clear. Abdomen: Soft, appropriately tender, nontender. Extremities: Moves all extremities. Neurologic: Grossly intact. Skin: No signs of jaundice. Vascular: All extremities perfused. ASSESSMENT AND PLAN: A 69-year-old gentleman with a bowel obstruction with a history of total abdominal colectomy. #1: Bowel obstruction. At this time, still seems to be consistent with bowel obstruction. We will keep the NG tube in place. Keep him NPO and wait more definitive return of bowel function. May need to consider placing a Paredes catheter down his ileostomy if he does not seem to have any improvement in the next couple of days. cc: Guanakito Peterson MD
--- NOTE | 2019-07-24 07:29 | PROGRESS NOTE ---
DATE: 07/24/2019 SUBJECTIVE: Mr. Lynch refers to be doing a lot better. Abdominal pain has significantly improved. He still has the NG tube in place. OBJECTIVELY: Vitals: Blood pressure is 165/93, pulse of 73, respiration is 24, temperature is 97.7 degrees. General: Mr. Lynch is a 69-year-old gentleman. He is in bed, no distress. HEENT: Mucosa is pink and moist. Anicteric. Acyanotic. NG tube is still in place. Chest: Good air entry bilaterally. No crepitations. No rhonchi. Cardiovascular: Regular rate and rhythm. No murmurs, no rubs, no gallops. Abdomen: Soft. Bowel sounds were present but hypoactive. There is an old surgical scar in the mid anterior abdominal wall. There is an ileostomy on the right side. The bag is empty. Extremities: No pedal edema. 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 Patient's I's and O's, NG tube output was about 850 documented. No lab works at the time of the dictation. CURRENT MEDICATIONS: Have all been reviewed. He is still on saline at 125 mL/h. ASSESSMENT: 1. Small bowel obstruction. The patient has NG tube in place, on hydration. We are pending the KUB this morning. Surgery is on board. 2. Cholelithiasis, currently asymptomatic. 3. Chronic pain syndrome. 4. History of seizure disorder. The patient has not had any seizures during the hospital course. 5. Remote history of B-cell lymphoma. 6. Pulmonary fibrosis, most likely due to previous radiation therapy and chemotherapy side effects for the B-cell lymphoma treatment. 7. Previous status post exploratory laparotomy with total colectomy due to pseudomembranous colitis (megacolon). PLAN: So for now I think Mr. Lynch will continue to be NPO, NG tube for GI decompression. Await on the KUB. The patient is being seen by surgery. I think if the KUB continues to show obstruction, maybe a small bowel follow-through series might need to be done or wait on Surgery for further recommendations. cc: Padilla Scott MD
[2019-07-24 07:38] LABS: BASO# 0.02 X1000 (0.0-0.2); BASO% 0.4 % (0.0-0.8); EOS# 0.18 X1000 (0.0-0.7); EOS% 3.6 % (0.0-10.0); HEMATOCRIT 45.4 % (42.0-52.0); HEMOGLOBIN 16.3 g/dL (14.0-18.0); LYMPH# 0.85 X1000 (1.2-3.4); LYMPH% 16.8 % (20.5-51.1); MCHC 35.9 g/dL (33-37); MCV 103.2 FL (81-99); MONO# 0.66 X1000 (0.11-0.59); MPV 10.9 FL (7.4-10.4); NEUT# 3.36 X1000 (1.4-6.5); NEUT% 66.2 % (42.2-75.2); PLT 91 X1000 (130-400); RDW 13.5 % (11.5-14.5); WBC 5.07 X1000 (4.8-10.8)
[2019-07-24 08:07] LABS: AGAP 18; BUN 11 mg/dL (8-22); CALCIUM 7.5 mg/dL (8.8-10.2); CHLORIDE 100 mmol/L (98-107); COSMO 275; CREATININE 0.5 mg/dL (0.7-1.2); ESTIMATED GFR > 60; GLUCOSE 72 mg/dL (70-104); POTASSIUM 3.6 mmol/L (3.5-5.1); SODIUM 139 mmol/L (136-145); TCO2 21 mmol/L (25-35)
--- NOTE | 2019-07-24 09:10 | Diag Imaging Result Doc PS360 ---
EXAM: KUB ABDOMEN - 07/24/2019 HISTORY: SBO TECHNIQUE: AP spine abdomen COMPARISON: 07/23/2019 FINDINGS: Gaseous small bowel distention appears stable to mildly decreased compared to prior. IMPRESSION: Stable to mildly decreased gaseous small bowel distention compared to prior. Electronically signed by Ulices Alonzo 07/24/2019 9:07 AM
[2019-07-24] MEDS: NON-FORMULARY BULK MED INH SCH (16:50)
[2019-07-24] MEDS ORDERED: APRESOLINE IV PRN (17:43)
[2019-07-24] MEDS: KEPPRA 1,500 MG in NS 100 ML IV SCH (19:17)
[2019-07-24] MEDS: ZOFRAN IV PRN (20:56)
[2019-07-24] MEDS: MORPHINE IV PRN (20:56)
[2019-07-25] MEDS: MORPHINE IV PRN ×5 (03:14→21:44)
[2019-07-25] MEDS: NS 1,000 ML IV SCH ×3 (03:18→18:56)
[2019-07-25] MEDS: KEPPRA 1,500 MG in NS 100 ML IV SCH ×2 (06:16→18:54)
[2019-07-25 06:58] LABS: BASO# 0.01 X1000 (0.0-0.2); BASO% 0.2 % (0.0-0.8); EOS# 0.16 X1000 (0.0-0.7); EOS% 2.9 % (0.0-10.0); HEMATOCRIT 44.1 % (42.0-52.0); HEMOGLOBIN 15.6 g/dL (14.0-18.0); LYMPH% 14.6 % (20.5-51.1); MCHC 35.4 g/dL (33-37); MCV 101.8 FL (81-99); MONO# 0.78 X1000 (0.11-0.59); MONO% 14.3 % (1.7-9.3); MPV 10.9 FL (7.4-10.4); NEUT# 3.72 X1000 (1.4-6.5); PLT 91 X1000 (130-400); RBC 4.33 XMIL (4.7-6.1); RDW 13.1 % (11.5-14.5); WBC 5.47 X1000 (4.8-10.8)
[2019-07-25 07:18] LABS: AGAP 20; BUN 7 mg/dL (8-22); CALCIUM 7.9 mg/dL (8.8-10.2); CHLORIDE 100 mmol/L (98-107); COSMO 272; CREATININE 0.6 mg/dL (0.7-1.2); ESTIMATED GFR > 60; GLUCOSE 63 mg/dL (70-104); POTASSIUM 3.3 mmol/L (3.5-5.1); SODIUM 138 mmol/L (136-145); TCO2 18 mmol/L (25-35)
--- NOTE | 2019-07-25 07:28 | GENERAL SURGERY PROGRESS NOTE ---
DATE: 07/25/2019 SUBJECTIVE: The patient seems to be doing okay. He has had a little bit of gas in his appliance. He is not sick to his stomach. OBJECTIVE: Vital Signs: The patient is currently afebrile. His vital signs are stable. General: No acute distress. HEENT: Normocephalic, atraumatic. Pupils equal, round, reactive to light. Mucous membranes moist. Oropharynx benign. Neck: Supple. Trachea midline. Cardiovascular: Regular rate and rhythm. Lungs: Grossly clear. Abdomen: Soft, nontender, nondistended. Ostomy is viable, but not a significant amount of air in the appliance. Extremities: Moves all extremities. Neurologic: Grossly intact. Skin: No signs of jaundice. Vascular: All extremities perfused. IMAGING AND LABORATORY DATA: Laboratory reviewed from yesterday. Abdominal film reviewed from yesterday. ASSESSMENT AND PLAN: A 69-year-old gentleman with a bowel obstruction with history of total abdominal colectomy. Bowel obstruction. At this time, it seems to be improving. Will clamp his nasogastric tube, and let him sip on some clears. Given the fact that he has had a good amount of nasogastric tube output, do not want to remove it for right now, but otherwise will continue to follow. cc: Guanakito Peterson MD
[2019-07-25] MEDS: ZOFRAN IV PRN ×4 (08:17→21:44)
--- NOTE | 2019-07-25 09:39 | Diag Imaging Result Doc PS360 ---
EXAM: KUB ABDOMEN 07/25/2019 HISTORY: SBO TECHNIQUE: KUB COMMENT: Compared to 07/24/2019 the dilatation of small bowel loops seen in the midabdomen has diminished. Otherwise are has been no significant change. IMPRESSION: Improved small bowel obstruction. Electronically signed by Kulwant Thompson 07/25/2019 9:36 AM
--- NOTE | 2019-07-25 14:37 | PROGRESS NOTE ---
DATE: 07/25/2019 SUBJECTIVE: This morning Mr. Lynch referred to be doing a lot better. He said he is having some gas coming out of the ileostomy and he feels much better. He denies any vomiting. NG tube is still in place. OBJECTIVE: Vital signs: Blood pressure is 161/78, pulse of 78, respirations 17, temperature 97.9 degrees. General: Mr. Lynch is a 69-year-old gentleman. He was in bed, no distress. HEENT: Mucosa is pink and moist. Anicteric. Acyanotic. Neck: Supple. Chest: Clear to auscultation. Cardiovascular: Regular rate and rhythm. Abdomen: Soft. There is an old surgical scar in the mid anterior abdominal wall. There is an ileostomy in place. The bag has some serous fluid in but there is no fecal material, no bowel movement. Extremities: No pedal edema. 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 LABORATORY DATA: CBC is unremarkable. Chemistry shows a potassium of 3.3, has been replaced. ASSESSMENT: 1. Small bowel obstruction. Patient is still on NG tube for gastric decompression. He has had a total of about 1,700 documented in a 24 hour period yesterday. However, this morning, this has been clamped and he has been given some clears and he feels okay. 2. History of cholelithiasis. Patient is currently asymptomatic. 3. Chronic pain syndrome. Noted. 4. History of seizure disorder. The patient has not had any more seizures during the hospital course. He has been started on IV Keppra. Remote history of B-cell lymphoma. 1. Pulmonary fibrosis, unclear etiology. Presumably related to radiation therapy and chemotherapy from B-cell lymphoma treatment. 2. Previous exploratory laparotomy with total colectomy due to pseudomembranous colitis (megacolon noted). 3. Electrolyte abnormality including hypokalemia. We will replace. cc: Padilla Scott MD
[2019-07-26] MEDS: ZOFRAN IV PRN ×2 (03:06→16:39)
[2019-07-26] MEDS: MORPHINE IV PRN ×4 (03:06→23:30)
[2019-07-26] MEDS: NS 1,000 ML IV SCH ×4 (03:07→23:33)
[2019-07-26] MEDS: KEPPRA 1,500 MG in NS 100 ML IV SCH ×2 (06:55→18:45)
[2019-07-26 07:26] LABS: BASO# 0.02 X1000 (0.0-0.2); BASO% 0.3 % (0.0-0.8); EOS# 0.15 X1000 (0.0-0.7); EOS% 2.6 % (0.0-10.0); HEMATOCRIT 47.1 % (42.0-52.0); HEMOGLOBIN 16.6 g/dL (14.0-18.0); LYMPH# 0.72 X1000 (1.2-3.4); LYMPH% 12.3 % (20.5-51.1); MCHC 35.2 g/dL (33-37); MCV 102.2 FL (81-99); MONO% 10.3 % (1.7-9.3); MPV 11.1 FL (7.4-10.4); NEUT# 4.36 X1000 (1.4-6.5); NEUT% 74.5 % (42.2-75.2); PLT 100 X1000 (130-400); RBC 4.61 XMIL (4.7-6.1); RDW 13.1 % (11.5-14.5); WBC 5.85 X1000 (4.8-10.8)
--- NOTE | 2019-07-26 09:10 | Diag Imaging Result Doc PS360 ---
EXAM: KUB ABDOMEN HISTORY: SBO TECHNIQUE: Single view COMPARISON: 07/25/2019 FINDINGS: There are air dilated loops of small bowel. No organomegaly. No foreign body. Degenerative spine changes are present. IMPRESSION: Persistent small bowel obstruction with no interval improvement. Electronically signed by Cirilo Williamson 07/26/2019 9:08 AM
--- NOTE | 2019-07-26 13:24 | GENERAL SURGERY PROGRESS NOTE ---
DATE: 07/26/2019 SUBJECTIVE: He had some colicky discomfort overnight. His NG tube was placed back to suction. Nothing in the way of ostomy output. No fevers. No tachycardia. OBJECTIVE: Blood pressure 151/77, oxygen saturation is 93% on room air. General: He is alert. His ostomy is pink, viable. There is minimal fluid in the bag. No air. Abdomen is soft, nontender, nondistended. Integument: Warm and dry. White count is 5, hematocrit is 47. His potassium was 3.3 yesterday. I believe that this was replaced and we will continue to follow this closely. ASSESSMENT AND PLAN: A 69-year-old with multiple medical issues including pulmonary fibrosis with a bowel obstruction that has failed to resolve with nasogastric tube decompression. I will get a small-bowel follow-through today. Unfortunately, I suspect he is progressing towards need for exploration, although he would be high risk for this. We will follow him in the next 24 to 48 hours. cc: Whitney Perry MD
--- NOTE | 2019-07-26 15:35 | Diag Imaging Result Doc PS360 ---
SMALL BOWEL SERIES ONLY - 07/26/2019 INDICATION: small bowel obstruction TECHNIQUE: Water-soluble contrast small bowel exam COMPARISON: Previous x-rays and CT FINDINGS: There are diffusely abnormally dilated small bowel loops on the pharmacy retail support specialist exam. Water-soluble contrast was infused into the stomach by nasogastric tube. After three hours, only a very few proximal small bowel loops have receive any contrast. The majority of the contrast is still in the stomach. Certainly less than one quarter of the small bowel has receiving the contrast. IMPRESSION: High-grade small bowel obstruction. Very poor transit of contrast. Electronically signed by Seven Hardwick 07/26/2019 3:32 PM
--- NOTE | 2019-07-26 16:32 | PROGRESS NOTE ---
DATE: 07/26/2019 SUBJECTIVE: This morning Mr. Lynch referred to be hurting some more in the abdomen. He felt nauseated early on. He has been already. He has been seen already by surgery and there is a plan for a small bowel series. He did say that he did not feel well today and he does not think there has been any improvement. OBJECTIVE: Vital signs: Blood pressure is 151/77, pulse of 95, respiration is 18, temperature 98.3 degrees. The patient is saturating 93% on room air. General: On general Mr. Lynch is a 69- year-old gentleman. He is in bed. He is not in any distress. NG tube is in place. HEENT: Mucosa is pink and moist. Anicteric. Acyanotic. Neck: Supple. Chest: Good air entry bilaterally. There was no crepitations no rhonchi. Cardiovascular: Regular rate and rhythm. Abdomen: Soft. Globally distended. There is tenderness everywhere but no rebound, no guarding. There is an old midline surgical scar on the anterior abdominal wall. There is an ileostomy in place. The bag has some serous fluid but no fecal material. Extremities: No pedal edema. RANGE AIDE: RANGE AIDE patient is awake, alert, and oriented. LABORATORY DATA: CBC is reviewed is unremarkable. There is some microcytosis. At the time of the dictation, the KUB this morning showed persistent small bowel obstruction with no interval improvement. The small bowel series was also officially dictated and the impression showed high-grade small bowel obstruction, very poor transit of contrast. ASSESSMENT: 1. Small bowel obstruction which has persisted for more than 48 hours. The patient still has NG tube in place for gastric decompression. A small bowel series continues to show a high-grade small bowel obstruction. Will be pending surgery evaluation on the scan and go from there. 2. History of cholelithiasis. Patient is currently asymptomatic. He was pending to do a laparoscopic gallbladder removal next month. 3. History of chronic pain syndrome. 4. History of seizure disorder. No seizure activity during the hospital course. The patient is on IV Keppra. 5. Remote history of B-cell lymphoma. 6. History of pulmonary fibrosis, presumably from radiation and chemotherapy for the B-cell lymphoma management. 7. Previous exploratory laparotomy with total colectomy due to pseudomembranous colitis (megacolon). 8. Electrolyte abnormality including hypokalemia, replaced. PLAN: In general, I think Mr. Lynch is doing fairly the same. He seems clinically slightly worse than yesterday. He had a KUB and a small bowel series this morning which shows persistent high- grade small bowel obstruction. The ostomy continues to have just serous fluid, no fecal material. We are still pending further recommendations from surgery. It does appear that Mr. Lynch is heading towards possibly another exploratory laparotomy. cc: Padilla Scott MD
[2019-07-26] MEDS: NON-FORMULARY BULK MED INH SCH (20:03)
[2019-07-27] MEDS: KEPPRA 1,500 MG in NS 100 ML IV SCH ×4 (05:58→18:29)
[2019-07-27] MEDS: NS 1,000 ML IV SCH ×2 (08:21→17:02)
--- NOTE | 2019-07-27 09:31 | Diag Imaging Result Doc PS360 ---
KUB ABDOMEN - 07/27/2019 INDICATION: SBO COMPARISON: 07/26/2019 FINDINGS: There has been moderate progression of contrast through numerous loops of small bowel, but these are all extremely distended. These measure up to 5.3 cm. There is still some contrast stuck in the stomach. IMPRESSION: Very slight passage of contrast throughout the abnormally distended small bowels, compatible with persistent small bowel obstruction. Electronically signed by Seven Hardwick 07/27/2019 9:28 AM
[2019-07-27] MEDS ORDERED: VERSED ONE (13:58)
[2019-07-27] MEDS ORDERED: FENTANYL ONE (13:59)
[2019-07-27] MEDS ORDERED: DUONEB (A & A) INH ONE (13:59)
[2019-07-27] MEDS ORDERED: DIPRIVAN 1% ONE (13:59)
[2019-07-27] MEDS ORDERED: ALBUMIN 25% ONE (14:29)
[2019-07-27] MEDS ORDERED: INVANZ 1 GM/NS 1 GM/50 ML IVPB IV ONE (14:30)
[2019-07-27 14:51] LABS: URINE SOURCE CATH
[2019-07-27 14:59] LABS: BILIRUBIN URINE NEGATIVE (NEGATIVE); BLOOD URINE TRACE (NEGATIVE); COLOR YELLOW; GLUCOSE URINE NEGATIVE (NEGATIVE); KETONE URINE >150 mg/dL (NEGATIVE); LEUKOCYTES URINE NEGATIVE (NEGATIVE); NITRITE URINE NEGATIVE (NEGATIVE); PROTEIN URINE TRACE mg/dL (NEGATIVE); SP GRAVITY URINE 1.024; TURBIDITY URINE CLEAR (CLEAR); UR EPITHELIAL CELLS >10 /HPF (<10); URINE BACTERIA NEGATIVE /HPF; URINE RBC <10 /HPF (<10); URINE WBC <10 /HPF (<10); UROBILINOGEN URINE NORMAL (NORMAL)
[2019-07-27] MEDS ORDERED: QUELICIN (DOSE) ONE (15:19)
[2019-07-27] MEDS ORDERED: ZEMURON ONE (15:19)
--- NOTE | 2019-07-27 16:02 | PROGRESS NOTE ---
DATE: 07/27/2019 SUBJECTIVE: This morning Mr. Lynch refers to be continuing to having abdominal discomfort, and that nothing has really come out of his ostomy. OBJECTIVE: Vital Signs: Blood pressure 146/81, pulse 78, respirations 18, and temperature is 98.6 degrees. General: Mr. Lynch is a 69-year-old gentleman. He was in bed, still in mild pain in the abdomen. HEENT: Mucosa is pink and moist. Anicteric. Acyanotic. Neck: Supple. Chest: Good air entry bilaterally. There were no crepitations. No rhonchi. Cardiovascular: Regular rate and rhythm. Abdomen: Soft. Globally distended. Some tenderness everywhere. There is an old midline surgical scar on the anterior abdominal wall. There is an ileostomy in place. It did have some mild liquid stool. Extremities: No pedal edema. FORESTRY FIRE AID: Patient was awake, alert, and oriented. LABORATORY DATA: None for today. A KUB this morning seems to suggest very slight passage of contrast throughout, and abnormally distended small bowel compatible with persistent small-bowel obstruction. ASSESSMENT: 1. Persistent small bowel obstruction for more than 48 hours. The patient has been evaluated by Surgery today, and they plan to do an exploratory laparotomy today. 2. History of cholelithiasis. 3. History of chronic pain syndrome. 4. History of seizure disorder. 5. Remote history of B-cell lymphoma. 6. History of pulmonary fibrosis. 7. 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 8. Electrolyte abnormality, replaced. In general, Mr. Lynch has not shown any improvement. A small bowel follow through yesterday shows persistent obstruction. A KUB this morning continues to show the same. Mr. Lynch continues to be symptomatic with pain. He has been evaluated by Surgery, and there is a plan for exploratory laparotomy today. cc: Padilla Scott MD MTDD
[2019-07-27] MEDS ORDERED: NEOSTIGMINE ONE (16:05)
[2019-07-27] MEDS ORDERED: BREVIBLOC ONE (16:09)
[2019-07-27] MEDS ORDERED: ZOFRAN ONE (16:13)
[2019-07-27] MEDS ORDERED: DECADRON ONE (16:13)
[2019-07-27] MEDS ORDERED: DILAUDID ONE (16:13)
[2019-07-27] MEDS ORDERED: OFIRMEV 1000 MG/ISOTONIC SOLN 1,000 MG/100 ML BOTTLE ONE (16:13)
[2019-07-27] MEDS: MORPHINE IV PRN ×2 (17:58→23:08)
[2019-07-27] MEDS: LR 1,000 ML IV SCH (18:29)
--- NOTE | 2019-07-27 18:39 | GENERAL SURGERY PROGRESS NOTE ---
DATE: 07/27/2019 SUBJECTIVE: A scant amount of ostomy output. Continues to have intermittent colicky pains. NG tube output remains high. OBJECTIVE: No fevers. Pulse 78, blood pressure 146/81.General: Alert. Abdomen: Soft, mildly distended. No peritonitis. Ostomy is pink, viable. Minimal stool in the bag, but no air. LABORATORY AND DIAGNOSTIC DATA: White count is 5, hematocrit is 47. I reviewed his small bowel follow-through. It showed persistent high-grade obstruction. His x-ray this morning shows residual contrast throughout the small bowel with significant dilation. ASSESSMENT AND PLAN: A 69-year-old gentleman with high-grade obstruction, persistent despite trial of NG tube decompression. I have recommended exploratory laparotomy with lysis of adhesions. We discussed possibility of bowel resection, although indicated procedures, possible revision of his ostomy. He understands all this and consents. We will go the operating room today. We will keep his NG tube. Also, discussed anticipated recovery following this. He understands and is in agreement. cc: Whitney Perry MD
--- NOTE | 2019-07-27 20:19 | OPERATIVE NOTE ---
PROCEDURE DATE: 07/27/2019 PREOPERATIVE DIAGNOSIS: Bowel obstruction. POSTOPERATIVE DIAGNOSIS: Bowel obstruction related to phytobezoar impaction. PROCEDURE PERFORMED: Exploratory laparotomy with removal of enteric phytobezoar impaction. ESTIMATED BLOOD LOSS: 50 mL. SPECIMENS: Phytobezoar. ANESTHESIA: General. INDICATIONS: This is a gentleman who has a history of a total abdominal colectomy for toxic colitis. He has an end ileostomy. He presented after a large fibrous meal with bowel obstruction that failed nasogastric tube decompression and had a persistent high-grade obstruction over the last several days. FINDINGS: There was massive dilation of the small bowel up to the level of the fascia. There were numerous points of impacted fibrotic food causing the obstruction. There were minimal to no intra-abdominal adhesions. OPERATIVE NOTE: Risks, benefits and alternatives were discussed with the patient, and he consented to the procedure. He was seen preoperatively and the surgical site was confirmed. He was taken to the operating room and placed in the supine position, and general anesthesia was induced. He has a nasogastric tube in place. A Paredes catheter was placed. Pre-incision antibiotics were administered with Invanz. His ostomy was excluded using an impermeable dressing. We then carried our incision through his previous midline laparotomy scar down to the fascia, incised the fascia, and removed the old Prolene suture. We entered the abdomen after incising the peritoneum sharply and extending our incision cephalad and inferiorly. We then eviscerated the small bowel. Starting proximally and running it distally, we identified several locations of fibrotic food impaction. At this point, we recognized the need for enteric decompression but elected to do this distally through the end ileostomy to prevent the need of repair of enterotomy. I digitized the ileostomy. It was patent below the fascia, but required expression of this numerous large fibrous portions of food consistent with vegetable matter. In between removal of these, there was a large volume of enteric contents expressed, almost 2 L worth. We for the most part were able to do this without any contamination of the midline wound. After we had decompressed the bowel through the ileum, we placed the small bowel back into the abdomen. We did change our drapes and change our gloves and gowns. We then copiously irrigated with warm saline until clear. Hemostasis was noted. I then ran the small bowel again. There were no serosal or mesenteric injuries. It was placed back in neutral position. There was no torsion of the ileostomy, and it remained well perfused and patent below the level of the fascia. At this point, we closed the fascia with a #1 running looped PDS suture, and the skin was closed loosely with surgical clips with intermittent packing of iodoform to hopefully prevent postoperative wound infection. A dressing was applied. The ileostomy appliance was applied as well. He tolerated it. Counts were correct. He was woken and transferred to recovery. I spoke with family. cc: Whitney Perry MD
[2019-07-27] MEDS: PERIDEX MT SCH (22:43)
[2019-07-28] MEDS: NS 1,000 ML IV SCH ×3 (00:51→21:39)
[2019-07-28] MEDS: MORPHINE IV PRN ×2 (03:07→07:39)
[2019-07-28] MEDS: LR 1,000 ML IV SCH ×3 (05:08→20:24)
[2019-07-28] MEDS: KEPPRA 1,500 MG in NS 100 ML IV SCH ×2 (06:02→21:40)
[2019-07-28 07:22] LABS: HEMATOCRIT 45.7 % (42.0-52.0); MCH 36.1 PG (27-31); MCV 103.2 FL (81-99); MPV 11.7 FL (7.4-10.4); RBC 4.43 XMIL (4.7-6.1); RDW 13.1 % (11.5-14.5); WBC 10.46 X1000 (4.8-10.8)
[2019-07-28 07:58] LABS: AGAP 17; ALBUMIN 2.8 g/dL (3.5-5.0); BUN 9 mg/dL (8-22); CALCIUM 7.9 mg/dL (8.8-10.2); CHLORIDE 103 mmol/L (98-107); COSMO 285; CREATININE 0.6 mg/dL (0.7-1.2); ESTIMATED GFR > 60; GLUCOSE 124 mg/dL (70-104); PHOSPHORUS 2.5 mg/dL (2.7-4.5); POTASSIUM 3.3 mmol/L (3.5-5.1); SODIUM 143 mmol/L (136-145); TCO2 23 mmol/L (25-35)
[2019-07-28] MEDS: NON-FORMULARY BULK MED INH SCH ×2 (09:15→09:20)
[2019-07-28] MEDS: PERIDEX MT SCH ×2 (09:21→21:39)
[2019-07-28] MEDS ORDERED: POTASSIUM PHOSPHATE IV ONE (09:30)
[2019-07-28] MEDS ORDERED: NS IV ONE (09:30)
[2019-07-28] MEDS: DILAUDID IV PRN ×3 (12:08→21:40)
--- NOTE | 2019-07-28 19:35 | PROGRESS NOTE ---
DATE: 07/28/2019 SUBJECTIVE: Today Mr. Lynch refers to be doing a little better. Still has some abdominal pain, but he feels a whole lot better today. He is day 1 post exploratory laparotomy with Dr. Perry. Findings included that there was a massive dilation of the small bowel up to the level of the fascia. There were numerous point of impacted fibrotic food causing the obstruction. The patient's postoperative diagnosis was bowel obstruction related to phytobezoar impaction. OBJECTIVE: Current vitals: Blood pressure is 164/88, pulse of 90, respirations of 18, temperature is 98.5. General: Mr. Lynch is a 69-year-old gentleman. He is in bed in bed, in no distress. HEENT: Mucosa is pink and moist. Anicteric. Acyanotic. Neck: Supple. Chest: Clear to auscultation. There were no crepitations, no rhonchi. Cardiovascular: Regular rate and rhythm. GI: Abdomen is soft, quite distended. Bowel sounds are hypoactive. There is an ostomy on the right side of the abdomen which continues to be empty. There is a new surgical incision on the mid-abdominal wall which is covered. Bowel sounds are extremely hypoactive. Extremities: No pedal edema. IN HOME CAREGIVER: Patient is awake, alert, and oriented. LABORATORY DATA: Has been reviewed. Chemistry is also unremarkable except for low potassium and low phosphorus. ASSESSMENT: 1. Small bowel obstruction secondary to phytobezoar impaction. The patient is status post exploratory laparotomy with removal of enteric phytobezoar impaction. Today is day 1 postop. The patient seems to be doing remarkably okay. Postoperative ileus noted. 2. History of cholelithiasis. 3. Chronic pain syndrome. 4. History of seizure disorder. 5. Remote history of B-cell lymphoma. The patient follows up with Dr. Ochoa. 6. 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 7. Pulmonary fibrosis. 8. Electrolyte abnormality including hypokalemia and hypophosphatemia. Will be replaced. cc: Padilla Scott MD
--- NOTE | 2019-07-29 00:55 | EKG Report ---
Test Performed on : 07/29/2019 00:49:27 AM Test Reason : Tachycardia Blood Pressure : / mmHG Vent. Rate : 130 BPM Atrial Rate : 130 BPM P-R Int : 138 ms QRS Dur : 078 ms QT Int : 298 ms P-R-T Axes : 019 -18 069 degrees QTc Int : 438 ms Sinus tachycardia. Otherwise normal ECG When compared with ECG of 02-APR-2019 00:32, NE interval has decreased Vent. rate has increased BY 63 BPM Unconfirmed Result
[2019-07-29 01:06] LABS: HEMATOCRIT 44.1 % (42.0-52.0); HEMOGLOBIN 15.2 g/dL (14.0-18.0); MCHC 34.5 g/dL (33-37); MCV 101.6 FL (81-99); MPV 11.2 FL (7.4-10.4); RBC 4.34 XMIL (4.7-6.1); RDW 12.7 % (11.5-14.5); WBC 10.84 X1000 (4.8-10.8)
[2019-07-29 01:52] LABS: AGAP 15; ALBUMIN 2.7 g/dL (3.5-5.0); BUN 9 mg/dL (8-22); CALCIUM 7.7 mg/dL (8.8-10.2); CHLORIDE 100 mmol/L (98-107); COSMO 276; CREATININE 0.5 mg/dL (0.7-1.2); ESTIMATED GFR > 60; GLUCOSE 96 mg/dL (70-104); MAGNESIUM 1.2 mg/dL (1.5-2.7); PHOSPHORUS 2.2 mg/dL (2.7-4.5); POTASSIUM 2.9 mmol/L (3.5-5.1); SODIUM 139 mmol/L (136-145); TCO2 24 mmol/L (25-35)
--- NOTE | 2019-07-29 02:09 | GENERAL SURGERY PROGRESS NOTE ---
DATE: 07/28/2019 SUBJECTIVE: He feels okay. Morphine is not adequately controlling his pain. No fevers. OBJECTIVE: Vital signs: Pulse in the 90s. Blood pressure 164/88, oxygen 94%. General: He is alert. NG tube is capped for unclear reason. He does have bilious output in the tube. Abdomen: Soft. Dressing is clean. Ostomy is pink, viable with no significant stool in bag. LABS: White count 10, hematocrit is 45. Creatinine 0.6, potassium 3.3. ASSESSMENT AND PLAN: A 69-year-old gentleman with bowel obstruction related to a phytobezoar impaction. I anticipate ileus, would recommend peripheral nutritional support given the fact that he is encroaching upon a week with nothing significant per mouth. He can have pure ice chips for comfort, a very small amount. I will change his pain medicine to Dilaudid. Will continue on IV fluids and observation. cc: Whitney Perry MD
[2019-07-29] MEDS ORDERED: MAGNESIUM SULFATE 2 GM/S.W.I. 2 GM/50 ML IVPB IV ONE ×2 (02:45→08:07)
[2019-07-29] MEDS ORDERED: POTASSIUM PHOSPHATE IV ONE (02:48)
[2019-07-29] MEDS ORDERED: NS IV ONE (02:48)
[2019-07-29] MEDS: POTASSIUM CHLORIDE 20 MEQ/SWI 20 MEQ/100 ML IVPB IV SCH ×2 (06:21→08:24)
[2019-07-29] MEDS ORDERED: POTASSIUM PHOSPHATE 60 MEQ in NS 250 ML IV ONE (08:07)
[2019-07-29] MEDS: NS 1,000 ML IV SCH (08:31)
[2019-07-29] MEDS: KEPPRA 1,500 MG in NS 100 ML IV SCH ×2 (08:33→19:00)
[2019-07-29] MEDS: DILAUDID IV PRN ×3 (08:37→20:48)
[2019-07-29] MEDS: PERIDEX MT SCH ×2 (08:44→20:49)
[2019-07-29] MEDS: LR 1,000 ML IV SCH ×3 (08:44→14:24)
[2019-07-29] MEDS: NON-FORMULARY BULK MED INH SCH ×2 (08:46→08:47)
[2019-07-29 13:16] LABS: AGAP 17; BUN 6 mg/dL (8-22); CALCIUM 7.5 mg/dL (8.8-10.2); CHLORIDE 96 mmol/L (98-107); COSMO 267; CREATININE 0.4 mg/dL (0.7-1.2); ESTIMATED GFR > 60; GLUCOSE 86 mg/dL (70-104); MAGNESIUM 2.5 mg/dL (1.5-2.7); PHOSPHORUS 3.1 mg/dL (2.7-4.5); POTASSIUM 3.4 mmol/L (3.5-5.1); SODIUM 135 mmol/L (136-145); TCO2 22 mmol/L (25-35)
--- NOTE | 2019-07-29 14:10 | PROGRESS NOTE ---
DATE: 07/29/2019 SUBJECTIVE: This morning, Mr. Lynch refers to be doing okay. Still has some abdominal discomfort. He did request for some ice chips. OBJECTIVE: Vital Signs: Blood pressure is 165/89, pulse of 87, respiration is 18, temperature is 98.7 degrees, the patient is saturating 92% on room air. General: Mr. Lynch is a 69-year-old gentleman. He was in bed. No distress. HEENT: Mucosa was pink and moist. Anicteric and acyanotic. Neck: Supple. Chest: Good air entry bilaterally. There were no crepitations, no rhonchi. Cardiovascular: Regular rate and rhythm. There were no murmurs, no rubs, no gallops. GI: Abdomen was soft, distended. Bowel sounds hypoactive. There is an ostomy on the right side with very, very minimal fecal material. There is a new surgical incision in the mid anterior abdominal wall, which is covered with sterile dressing. Extremities: No pedal edema. PUBLICATIONS DESIGNER: The patient is awake, alert, and oriented. LABORATORY DATA: WBC is up to 10.87. Rest of CBC is unremarkable. Chemistry is also reviewed. Potassium is 2.9. Phosphorus and magnesium are low. ASSESSMENT: 1. Small-bowel obstructions due to phytobezoar impaction. The patient is status post exploratory laparotomy with removal of enteric phytobezoar impaction. Today is day 2 postoperatively. 2. Postoperative ileus. Noted. 3. History of cholelithiasis. 4. Chronic pain syndrome. 5. History of seizures. The patient is on intravenous Keppra. 6. Remote history of B-cell lymphoma. The patient follows up with Dr. Ochoa prior to hospitalization. 7. Previous colectomy due to pseudomembranous colitis. 8. Pulmonary fibrosis, stable. 9. Electrolyte abnormalities, including hypokalemia, hypophosphatemia, and hypomagnesemia. Will continue to replace. 10. Nutritional support. The patient is currently on Clinimix with lipid infusion. Per the Surgery documentation, they anticipate a little prolonged nothing by mouth, so we will consult dietitian as well. cc: Padilla Scott MD
[2019-07-29] MEDS: CLINIMIX E 4.25%-5% SOLUTION 1,000 ML IV SCH (14:24)
[2019-07-29] MEDS: LIPOSYN 20% 250 ML IV SCH (14:25)
--- NOTE | 2019-07-29 16:11 | GENERAL SURGERY PROGRESS NOTE ---
DATE: 07/29/2019 SUBJECTIVE: Mr. Lynch is now postop day 2 after laparotomy, removal and evacuation of a phytobezoar. OBJECTIVE: Vital Signs: He is afebrile. Heart rate 108, blood pressure 160/82. Lungs: Sound clear. Abdomen: His abdomen is quiet. He has had very little output out his ileostomy. LABS: Intake 3338 and output 2075. NG output has been really not very much; it is 75 mL. White count 10,800, hemoglobin of 15. Potassium is down to 2.9, BUN 9, creatinine 0.5. Phosphorus low at 2.2. Magnesium low at 1.2. PLAN: To continue with NG suction. His ileus has not yet resolved. His magnesium and potassium and phosphorus are all being replaced. I think we will give him some Clinimix in order to give him some protein and nourishment, and decrease some of his saline. cc: Tomas Russo MD
[2019-07-29] MEDS: ZOFRAN IV PRN (19:00)
[2019-07-30] MEDS: DILAUDID IV PRN ×6 (02:06→22:13)
[2019-07-30] MEDS: KEPPRA 1,500 MG in NS 100 ML IV SCH ×3 (05:42→18:51)
[2019-07-30] MEDS: CLINIMIX E 4.25%-5% SOLUTION 1,000 ML IV SCH ×2 (06:29→23:32)
[2019-07-30 07:14] LABS: AGAP 13; ALBUMIN 2.7 g/dL (3.5-5.0); BUN 7 mg/dL (8-22); CALCIUM 7.8 mg/dL (8.8-10.2); CHLORIDE 94 mmol/L (98-107); COSMO 271; CREATININE 0.4 mg/dL (0.7-1.2); ESTIMATED GFR > 60; GLUCOSE 125 mg/dL (70-104); MAGNESIUM 1.5 mg/dL (1.5-2.7); PHOSPHORUS 2.6 mg/dL (2.7-4.5); POTASSIUM 2.8 mmol/L (3.5-5.1); SODIUM 136 mmol/L (136-145); TCO2 29 mmol/L (25-35)
[2019-07-30] MEDS ORDERED: POTASSIUM PHOSPHATE 60 MEQ in NS 250 ML IV ONE (08:15)
[2019-07-30] MEDS: PERIDEX MT SCH ×2 (09:51→22:14)
[2019-07-30] MEDS: LIPOSYN 20% 250 ML IV SCH (14:00)
--- NOTE | 2019-07-30 16:28 | PROGRESS NOTE ---
DATE: 07/30/2019 SUBJECTIVE: This morning Mr. Lynch referred to be doing a whole lot better. Abdomen pain has significantly improved and he thinks there is some output coming from the ostomy. OBJECTIVE: Vital signs: Blood pressure is 137/83, pulse of 108, respirations 20, temperature 98.7 degrees. General: Mr. Lynch is a 69-year-old gentleman. He is in bed, in no distress. HEENT: Mucosa is pink and moist. Anicteric. Acyanotic. Neck: Supple. Chest: Clear to auscultation. No crepitations. No rhonchi. Cardiovascular: Regular rate and rhythm, slightly tachycardic but no murmurs, no rubs, no gallops. GI: Abdomen soft. Bowel sounds were present but hypoactive. There is an ostomy on the right side. It did have some liquid greenish fecal material. There is a new surgical incision in the mid anterior abdominal wall which is covered with sterile dressing. Extremities: No pedal edema. GEOLOGY FACULTY MEMBER: Patient is awake, alert, and oriented. LABORATORY DATA: Chemistry shows potassium was 2.8, phosphorus is 2.6, magnesium 1.5. The patient protein is 2.7. ASSESSMENT: 1. Small bowel obstruction secondary to phytobezoar impaction. Patient is status post exploratory laparotomy with removal of enteric phytobezoar impaction. Today is day 3 postop. 2. Postoperative ileus improving. 3. History of cholelithiasis. 4. History of seizures. Patient is currently on IV Keppra. 5. Remote history of B-cell lymphoma, status post chemotherapy and radiation at some point. The patient follows up with Dr. Ochoa 6. Pulmonary fibrosis, stable. 7. Electrolyte abnormality including hypokalemia, hypophosphatemia, hypomagnesemia, improving, questionable for refeeding syndrome. We will continue to replace these. 8. Nutritional support. The patient is on Clinimix with lipid infusion. Dietitian is on board. cc: Padilla Scott MD
[2019-07-30] MEDS: LR 1,000 ML IV SCH (17:53)
--- NOTE | 2019-07-30 19:22 | GENERAL SURGERY PROGRESS NOTE ---
DATE: 07/30/2019 SUBJECTIVE: Mr. Lynch diuresed pretty well in the past 24 hours. He has not really put out that much in his NG tube. He does have some green liquid in his ileostomy bag. OBJECTIVE: He is afebrile. Heart rate 108, blood pressure 137/83. LABORATORY DATA: Potassium is down to 2.8. Phosphorus is back down to 2.6. ASSESSMENT AND PLAN: He has had some potassium phosphate replacement. Since he has some ileostomy output, I will clamp his NG tube in hopes that it can come out tomorrow and then he can start on clear liquids. He continues on Clinimix and lipids for nourishment. cc: Tomas Russo MD
[2019-07-31] MEDS: DILAUDID IV PRN ×6 (01:20→23:09)
[2019-07-31] MEDS: KEPPRA 1,500 MG in NS 100 ML IV SCH ×2 (06:43→18:09)
[2019-07-31 06:59] LABS: AGAP 12; ALBUMIN 2.6 g/dL (3.5-5.0); BUN 10 mg/dL (8-22); CALCIUM 7.9 mg/dL (8.8-10.2); CHLORIDE 94 mmol/L (98-107); COSMO 270; CREATININE 0.4 mg/dL (0.7-1.2); ESTIMATED GFR > 60; GLUCOSE 109 mg/dL (70-104); MAGNESIUM 1.6 mg/dL (1.5-2.7); PHOSPHORUS 3.3 mg/dL (2.7-4.5); SODIUM 135 mmol/L (136-145); TCO2 29 mmol/L (25-35)
[2019-07-31] MEDS ORDERED: MAGNESIUM SULFATE 2 GM/S.W.I. 2 GM/50 ML IVPB IV ONE (07:47)
--- NOTE | 2019-07-31 08:55 | PROGRESS NOTE ---
DATE: 07/31/2019 SUBJECTIVE: Mr. Delta Lynch is a 69-year-old white male who is now postop day 4 from an exploratory laparotomy with removal of an impaction per Dr. Perry. He has an ileostomy in place, and there is output from this ileostomy. He still has an NG tube in place and is receiving peripheral TPN. I will remove his NG tube and will start to begin a diet on him probably tomorrow, and a he tolerates the diet will stop his peripheral TPN. Will try to increase his activity. OBJECTIVE: Heart rate is 81, blood pressure 158/91, O2 saturation 99%. He is afebrile on nasal cannula O2. cc: Laney Salas MD
[2019-07-31] MEDS: PERIDEX MT SCH ×2 (10:14→20:31)
[2019-07-31] MEDS: POTASSIUM CHLORIDE 20 MEQ/SWI 20 MEQ/100 ML IVPB IV SCH ×2 (11:53→15:55)
[2019-07-31] MEDS ORDERED: POTASSIUM CHLORIDE 20 MEQ/SWI 20 MEQ/100 ML IVPB IV SCH (12:00)
[2019-07-31] MEDS: CLINIMIX E 4.25%-5% SOLUTION 1,000 ML IV SCH (14:00)
[2019-07-31] MEDS: LIPOSYN 20% 250 ML IV SCH (14:57)
--- NOTE | 2019-07-31 15:13 | PROGRESS NOTE ---
DATE: 07/31/2019 SUBJECTIVE: This morning Mr. Lynch refers to be doing a lot better. NG tube has been removed. He is making some stool in the ostomy. OBJECTIVE: Vital signs: Blood pressure 158/91, pulse of 81, respirations 20, temperature is 98.2 degrees. General: Mr. Lynch is a 69-year-old gentleman. He is in bed, no distress. Mucosa is pink and moist. Anicteric. Acyanotic. Neck: Supple. Chest: Clear to auscultation. No crepitations. No rhonchi. Cardiovascular: Regular rate and rhythm. GI: Abdomen is soft. Ostomy on the right side has greenish liquid fecal material. There is a new surgical incision in the mid anterior abdominal wall which is covered with sterile dressing. Extremities: No pedal edema. MIXING PLANT OPERATOR: Patient is awake, alert, and oriented. LABORATORY DATA: Chemistry shows potassium is 3.0. We are going to replace that. Phosphorus and magnesium, phosphorus is normal. Magnesium is 1.6. We are going to replace that as well. ASSESSMENT: 1. Small-bowel obstruction secondary to phytobezoar impaction. Patient is status post exploratory laparotomy with removal of enteric phytobezoar. Today is day 4 postop. 2. Postoperative ileus, improved. 3. History of cholelithiasis. 4. History of seizure disorder. Patient is on IV Keppra. 5. Remote history of B-cell lymphoma, status post chemotherapy and radiation therapy. 6. Pulmonary fibrosis, stable. 7. Electrolyte abnormality including hypokalemia and hypomagnesemia. We will continue to replace. 8. Nutritional support. The patient's NG tube is now out. He is still on Clinimix and lipid infusion. Will be pending further recommendations from surgery as to when enteral feeding can be resumed. cc: Padilla Scott MD
[2019-07-31] MEDS: LR 1,000 ML IV SCH (15:56)
[2019-08-01] MEDS: CLINIMIX E 4.25%-5% SOLUTION 1,000 ML IV SCH ×2 (06:11→15:07)
[2019-08-01] MEDS: KEPPRA 1,500 MG in NS 100 ML IV SCH ×2 (06:11→18:10)
[2019-08-01] MEDS: DILAUDID IV PRN ×5 (06:30→20:22)
--- NOTE | 2019-08-01 07:57 | PROGRESS NOTE ---
DATE: 08/01/2019 SUBJECTIVE: Today, Mr. Lynch refers to be doing fairly okay. Denies any new complaints. He has already been seen by Surgery and they plan to start him on full liquid diet. OBJECTIVE: Vital signs: Blood pressure is 168/95, pulse of 70, respirations 20, temperature 98.6 degrees. Patient is saturating 95% on room air. General: Mr. Lynch is a 69-year-old gentleman. He is in bed, no distress. Mucosa is pink and moist. Anicteric. Acyanotic. Neck: Supple. Chest: Clear to auscultation. No crepitations. No rhonchi. Cardiovascular: Regular rate and rhythm. There are no murmurs, no rubs, no gallops. Abdomen: Soft. Bowel sounds are present. The ileostomy on the right side has greenish fecal material. The new surgical incision is well affronted with surgical clips. A little bit of mild bleeding around the suture site, but for most part, it looks very healthy. Extremities: No pedal edema. 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 LABORATORY DATA: Chemistry is reviewed. Potassium is 3.0, magnesium is 1.6. Rest of chemistry is unremarkable. ASSESSMENT: 1. Small bowel obstruction secondary to phytobezoar impaction. Patient is status post exploratory laparotomy with removal of enteric phytobezoar. Today is day 5 postop. 2. Postoperative eye ileus, improved. 3. History of cholelithiasis noted. 4. History of seizure disorder. Patient is on IV Keppra. This can be switched to his regular p.o. medications once he is tolerating enteral feeding. 5. Remote history of B-cell lymphoma status post chemotherapy and radiation. Patient follows up with Dr. Ochoa. 6. Pulmonary fibrosis. 7. Electrolyte abnormality including hypokalemia and hypomagnesemia. We will continue to replace this. 8. Nutritional support. Mr. Lynch is now on clear liquids. He is going to be advanced to full liquid diet per his discussions with Surgery. Once he is tolerating his p.o. diet, I think Clinimix and lipid infusion can be discontinued. So in general, Mr. Lynch is a 69-year-old gentleman who presented because of small bowel obstruction, which failed conservative management. He was subsequently taken to OR, intervened upon. He seems to be doing well after the surgery. He is going to be started on full liquid diet today. Once he is tolerating his enteral feeding, we will switch his medications to p.o. and hopefully get him discharged tomorrow. cc: Padilla Scott MD
--- NOTE | 2019-08-01 10:10 | GENERAL SURGERY PROGRESS NOTE ---
DATE: 08/01/2019 SUBJECTIVE: Doing well. Ostomy continues to function. He is tolerating clear liquids. No fevers. OBJECTIVE: Pulse 70, blood pressure 160/95. General: He is alert. Incision is intact. There is some mild erythema but no purulent drainage. Ostomy is pink, viable with liquid stool in the bag. LABORATORY DATA: Creatinine 0.4, potassium low at 3. ASSESSMENT/PLAN: A 69-year-old gentleman status post food impaction causing bowel obstruction. He is doing well. We will continue to advance his diet to soft. Encourage him to be out of bed. Hopefully home soon. cc: Whitney Perry MD
[2019-08-01] MEDS: PERIDEX MT SCH ×2 (10:22→20:22)
[2019-08-01] MEDS: LR 1,000 ML IV SCH (14:47)
[2019-08-01] MEDS: LIPOSYN 20% 250 ML IV SCH (14:47)
[2019-08-02] MEDS: DILAUDID IV PRN ×7 (00:30→22:38)
[2019-08-02] MEDS: CLINIMIX E 4.25%-5% SOLUTION 1,000 ML IV SCH ×3 (03:38→17:37)
[2019-08-02] MEDS: KEPPRA 1,500 MG in NS 100 ML IV SCH ×2 (06:23→19:05)
[2019-08-02 06:57] LABS: HEMATOCRIT 46.1 % (42.0-52.0); HEMOGLOBIN 15.8 g/dL (14.0-18.0); MCH 34.4 PG (27-31); MCHC 34.3 g/dL (33-37); MCV 100.4 FL (81-99); MPV 11.4 FL (7.4-10.4); RBC 4.59 XMIL (4.7-6.1); RDW 12.2 % (11.5-14.5); WBC 8.7 X1000 (4.8-10.8)
[2019-08-02 07:13] LABS: AGAP 16; BUN 13 mg/dL (8-22); CALCIUM 7.9 mg/dL (8.8-10.2); CHLORIDE 94 mmol/L (98-107); COSMO 269; CREATININE 0.5 mg/dL (0.7-1.2); ESTIMATED GFR > 60; GLUCOSE 110 mg/dL (70-104); PHOSPHORUS 3.9 mg/dL (2.7-4.5); POTASSIUM 3.4 mmol/L (3.5-5.1); SODIUM 134 mmol/L (136-145); TCO2 24 mmol/L (25-35)
[2019-08-02] MEDS: PERIDEX MT SCH ×2 (08:46→22:38)
[2019-08-02] MEDS: NON-FORMULARY BULK MED INH SCH ×2 (08:46→08:49)
[2019-08-02] MEDS: LR 1,000 ML IV SCH (10:31)
[2019-08-02] MEDS: LIPOSYN 20% 250 ML IV SCH (12:01)
[2019-08-02] MEDS ORDERED: LIPOSYN 20% 500 ML IV SCH (14:00)
--- NOTE | 2019-08-02 17:16 | PROGRESS NOTE ---
DATE: 08/02/2019 SUBJECTIVE: This patient states that he is feeling a bit better. He denies any new complaints. He has been tolerating p.o. only liquid diet. He does have some bowel sounds. OBJECTIVE: Vital Signs: Temperature 97.8 degrees, pulse 81, respiratory rate 16, blood pressure 169/94, oxygen saturation 96 on room air. HEENT: Head normocephalic, no trauma. PERRLA. Neck: Supple. No JVD. No masses. Central trachea. Chest: Clear to auscultation. No wheezing. No rales. Cardiovascular: RRR. Abdomen: Soft. Bowel sounds are present. He has a right ileostomy with some liquid green fecal material, he has also a midline surgical scar which is new with roger, it does not look infected but he does have some mild bleeding around the suture site. Extremities: No edema, no clubbing, no cyanosis. Neurologic: The patient is alert, he is oriented x3. No focal deficits. LABORATORY: WBC 8.7, hemoglobin 15.8, hematocrit 46.1, platelets 162,000. Sodium 134, potassium 3.4, chloride 94, bicarbonate 24, BUN 13, creatinine 0.5, glucose 110, calcium 7.9, albumin 3.0. ASSESSMENT AND PLAN: 1. Small bowel obstruction secondary to phytobezoar impaction, status post exploratory laparotomy with removal of enteric phytobezoar postoperative day #6, he seems to be tolerating p.o. and it looks like his postoperative ileus has been getting better. 2. Postoperative ileus as above. 3. History of cholelithiasis noted. 4. History of seizure disorder. Continue with Keppra IV, this can be switched to his regular p.o. medication once he is tolerating p.o. 5. Remote history of B-cell lymphoma status post chemotherapy and radiation followed by Dr. Ochoa. 6. Pulmonary fibrosis. 7. Electrolyte abnormality including hypokalemia and hypomagnesemia, hyponatremia, hypochloremia, I will stop right now the Ringer lactate and I will put this patient on normal saline to try to improve his chloride, sodium and I will add potassium to this, tomorrow will ask also for magnesium. 8. Nutritional support. We will continue with a clear liquid diet. He is getting also Clinimix and lipid infusion, that can be discontinued once he is eating better. cc: Bruce Plasencia MD
[2019-08-02] MEDS ORDERED: FLU VACCINE IM ONE (17:38)
--- NOTE | 2019-08-02 19:00 | GENERAL SURGERY PROGRESS NOTE ---
DATE: 08/02/2019 SUBJECTIVE: He is doing very well. He is tolerating diet with clear liquids with Ensure supplementation. His ostomy is functioning. He is ambulating around the room. His pain is controlled. He is voiding. OBJECTIVE: He has no fevers, no tachycardia. His incision is intact. His abdomen is soft. His ostomy is pink and viable with stool in the bag. LABORATORY DATA: His potassium continues to get better each day. It is up to 3.4. Magnesium is improving as well. Creatinine is 0.5. White count is normal. ASSESSMENT AND PLAN: A 69-year-old gentleman status post open disimpaction of food particles causing obstruction. He is doing well. I think from a surgical standpoint he can go home. I talked to Dr. Samaniego about this. We will resume his home medications, and I will see him within the week to remove his roger. We have discussed signs and symptoms of wound infection. He will remain on a full liquid or soft diet at home, encouraging him to chew his food very well and avoid high residual foods. cc: Whitney Perry MD
[2019-08-02] MEDS: NS + KCL 20 MEQ 1,000 ML IV SCH (22:38)
[2019-08-03] MEDS: DILAUDID IV PRN ×2 (02:31→08:37)
[2019-08-03] MEDS: CLINIMIX E 4.25%-5% SOLUTION 1,000 ML IV SCH (03:33)
[2019-08-03] MEDS: KEPPRA 1,500 MG in NS 100 ML IV SCH (06:35)
[2019-08-03 06:49] LABS: HEMATOCRIT 44.1 % (42.0-52.0); HEMOGLOBIN 15.5 g/dL (14.0-18.0); MCH 35.6 PG (27-31); MCHC 35.1 g/dL (33-37); MCV 101.4 FL (81-99); MPV 11.8 FL (7.4-10.4); RBC 4.35 XMIL (4.7-6.1); RDW 12.4 % (11.5-14.5); WBC 8.12 X1000 (4.8-10.8)
[2019-08-03] MEDS ORDERED: PRILOSEC PO SCH (07:00)
[2019-08-03] MEDS: NS + KCL 20 MEQ 1,000 ML IV SCH (07:46)
[2019-08-03] MEDS: PERIDEX MT SCH (08:41)
[2019-08-03] MEDS: NON-FORMULARY BULK MED INH SCH (08:42)
[2019-08-03] MEDS ORDERED: KEPPRA PO SCH (09:00)
[2019-08-03] MEDS ORDERED: CYMBALTA PO SCH (09:00)
[2019-08-03] MEDS ORDERED: CARAFATE PO SCH (09:00)
[2019-08-03] MEDS ORDERED: NEURONTIN PO SCH (09:00)
[2019-08-03] MEDS ORDERED: REQUIP PO SCH (09:00)
[2019-08-03] MEDS ORDERED: CATAPRES PO SCH (09:00)
[2019-08-03 12:28] VITALS: BP 157/93
--- NOTE | 2019-08-04 10:06 | DISCHARGE SUMMARY ---
ADMISSION DATE: 07/22/2019 DISCHARGE DATE: 08/03/2019 DISCHARGE DIAGNOSES: 1. Small-bowel obstruction secondary to phytobezoar impaction, status post exploratory lateral laparotomy with removal of enteric phytobezoar, postoperative day #7. 2. Postoperative ileus, resolved. 3. History of cholelithiasis, noted. 4. History of seizure disorder. 5. Remote history of B-cell lymphoma status post chemotherapy and radiation, followed by Dr. Ochoa. 6. Pulmonary fibrosis. 7. Electrolyte abnormality. PROCEDURES PERFORMED: 1. Abdomen and pelvis CT scan dated 07/22/2019. Impression: Bibasilar bronchiectasis with fibrosis and/or small infiltrates, cholelithiasis. 2. Abdomen x-ray dated 07/23/2019. Findings suspicious for obstruction. 3. Abdomen x-ray dated 07/24/2019. Impression: Stable to mildly decreased gaseous small bowel distention compared to prior. 4. Abdomen x-ray dated 07/25/2019. Impression: Improved small-bowel obstruction. 5. Abdomen x-ray dated 07/26/2019. Impression: Persistent small-bowel obstruction with no interval improvement. 6. Small-bowel follow-through/water-soluble contrast small-bowel exam dated 07/26/2019. Impression: High grade small bowel obstruction, very poor transit of contrast. 7. Abdomen x-ray dated 07/27/2019. Impression: Very slight passage of contrast throughout the abnormally distended small bowels, compatible with persistent small-bowel obstruction. Exploratory 8. Laparotomy with removal of enteric phytobezoar impaction, dated 07/27/2019. 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 Came to the emergency department and was admitted on 07/22/2019 due to abdominal pain that has been going on for a few days. However, the night before admission became more sharp, associated with nausea, and the pain was relieved by an NG tube. No vomiting. He has had a decreased output in his colostomy bag. He reported no fever, no chills, no shortness of breath. He does have some pleuritic pain from his pulmonary fibrosis, but not cardiac type chest pain. His last meal was the day of admission in the afternoon. He is not sure if he was passing some gas, but was not normal. Workup in the emergency department showed air and fluid, distended duodenal and ileal loops, probably due to an ileus, although there was narrowing in the ostomy site which could be producing an obstruction. He was placed n.p.o. Like I mentioned before, he had an NG tube placed. Surgery Department evaluated this patient. We did serial abdominal x-rays on top of the CT scan and we did also a water-soluble contrast small-bowel exam that showed high-grade small-bowel obstruction, with very poor transit of contrast and the abdominal x-ray the next day showed a very slight passage of contrast throughout the abnormally distended small bowel, compatible with persistent small-bowel obstruction. Because of these findings, Surgery Department decided to go ahead and do an exploratory laparotomy to find out what happened and they found out a bowel obstruction related to a phytobezoar impaction that was removed on 07/27/2019. After the procedure, he had an ileus, which resolved a few days after the surgery. We started this patient on a liquid diet and that has been working fine and he is having output through the colostomy bag. We placed this patient back on his home medications p.o. today and he seems to be doing well. Surgery Department evaluated this patient yesterday and they suggested that this patient was okay to discharge, but the patient wanted to stay as well as the family members to check again his wound which will be evaluated by Surgery Department today. I personally checked the wound. I did not see any acute issue or infection. He seems to be healing well. He is tolerating p.o. Surgery Department has suggested to remain on a full liquid or soft diet at home. They encouraged the patient to chew his food very well and avoid high residual foods. He will follow up this patient in 1 week to take care of the roger and check on his wound. PHYSICAL EXAMINATION: Vital signs: Temperature 98.1 degrees, pulse 86, respiratory rate 16, blood pressure 157/93, oxygen saturation 97% on room air. HEENT: Head normocephalic, no trauma. PERRLA. Neck: Supple. No JVD. No masses. Central trachea. Chest: Clear to auscultation. No wheezing. No rales. Cardiovascular: Regular rate and rhythm. Abdomen: Soft. Bowel sounds are present. He has a right ileostomy, some liquid green fecal material inside the bag, he has a midline surgical scar with some roger and that looks fine. I do not see any signs of infection. He does have some tenderness around the surgical site. Extremities: No edema, no clubbing, no cyanosis. Neurological: The patient is alert, he is oriented x3. No focal deficits. LABORATORY DATA: WBC 8.1, hemoglobin 15.5, hematocrit 41.1, platelet 154,000. BMP from yesterday, sodium 134, potassium 3.4, chloride 94, bicarbonate 24, BUN 13, creatinine 0.5, glucose 110, calcium 7.9, albumin 3. DISCHARGE MEDICATIONS: Basically he will continue with his home medications and I will add pain medication to go home with. Those medications are clonidine 0.1 mg p.o. b.i.d., Cymbalta 60 mg p.o. daily, fluticasone/umeclidin/vilanter 100/62.5/25 one puff inhaler daily, gabapentin 400 mg p.o. t.i.d., Bloomingrose 7.5 one tablet p.o. q.8 hours. Keppra 15 mg p.o. b.i.d., omeprazole 40 mg p.o. daily, Daliresp 2 puff inhaler t.i.d. ropinirole 0.5 mg p.o. daily, Carafate 1 g p.o. t.i.d. FOLLOWUP: With Dr. Perry in 1 week. Also, follow up with his primary care doctor in 1 week. TIME SPENT DISCHARGING THIS PATIENT: 45 minutes. cc: Bruce Plasencia MD
== END 2019-08-03 15:53 | disposition home or self-care (01) | DRG 357 ==
LOC: ED 04:56 → SUATTDRO 09:01 → EDIPHOLD 09:01 → 4N 10:14
PROVIDERS: ATTEND Internal Medicine

== ENCOUNTER 2019-11-06 09:55 | Inpatient (IN) ==
[2019-11-06] MEDS ORDERED: MORPHINE IV ONE ×2 (10:40→13:56)
[2019-11-06] MEDS ORDERED: NS 1,000 ML IV ONE (10:40)
[2019-11-06] MEDS ORDERED: ZOFRAN IV ONE ×2 (10:40→13:56)
[2019-11-06] MEDS ORDERED: ZOSYN 4.5 GM in NS 100 ML IV ONE (10:40)
[2019-11-06 11:27] LABS: BASO# 0.03 X1000 (0.0-0.2); BASO% 0.4 % (0.0-0.8); EOS# 0.06 X1000 (0.0-0.7); EOS% 0.8 % (0.0-10.0); HEMATOCRIT 49.5 % (42.0-52.0); HEMOGLOBIN 17.1 g/dL (14.0-18.0); LYMPH# 0.77 X1000 (1.2-3.4); LYMPH% 10.2 % (20.5-51.1); MCH 35.2 PG (27-31); MCHC 34.5 g/dL (33-37); MCV 101.9 FL (81-99); MONO# 0.66 X1000 (0.11-0.59); MONO% 8.7 % (1.7-9.3); MPV 11.5 FL (7.4-10.4); NEUT# 6.04 X1000 (1.4-6.5); NEUT% 79.9 % (42.2-75.2); PLT 130 X1000 (130-400); RBC 4.86 XMIL (4.7-6.1); RDW 13.6 % (11.5-14.5); WBC 7.56 X1000 (4.8-10.8)
[2019-11-06 11:43] LABS: AGAP 18; ALB/GLOB RATIO 1.5; ALBUMIN 4.4 g/dL (3.5-5.0); ALKALINE PHOSPHATASE 93 U/L (32-122); BUN 8 mg/dL (8-22); CALCIUM 9.1 mg/dL (8.8-10.2); CHLORIDE 97 mmol/L (98-107); CK PROFILE 42 U/L (24-204); COSMO 276; CREATININE 0.7 mg/dL (0.7-1.2); ESTIMATED GFR > 60; GLUCOSE 104 mg/dL (70-104); GOT 98 U/L (10-34); GPT 69 U/L (10-44); POTASSIUM 3.9 mmol/L (3.5-5.1); SODIUM 139 mmol/L (136-145); TCO2 24 mmol/L (25-35); TOTAL BILIRUBIN 0.86 mg/dL (0.20-1.00); TOTAL PROTEIN 7.3 g/dL (6.3-8.3)
[2019-11-06 11:45] LABS: INR 0.99; PROTIME 13.2 Seconds (11.0-16.0)
[2019-11-06 12:10] LABS: PTT 25.1 Seconds (22.3-41.8)
--- NOTE | 2019-11-06 13:47 | Diag Imaging Result Doc PS360 ---
EXAM: CT ABD/PELVIS W/IV CONT ONLY HISTORY: sbo TECHNIQUE: CT abdomen and pelvis with intravenous contrast, but without oral contrast. COMPARISON: 07/22/2019 FINDINGS: There is scarring in the lower lungs. There calcified mediastinal and hilar lymph nodes with scattered granuloma. No pleural effusions. There are several stones within the gallbladder. There is fatty infiltration of the liver. No splenomegaly. No inflammation about the pancreas. Normal adrenal glands and kidneys. No hydronephrosis. No aortic aneurysm. Mild atherosclerosis. A nasogastric tube enters the stomach. There are dilated distal small bowel loops extending to the ostomy in the right lower quadrant. The urinary bladder is moderately distended and appears normal. Normal prostate. The colon has been resected. IMPRESSION: 1.Findings have the appearance of a small bowel obstruction with the narrowed segment being at the ostomy site. 2.Cholelithiasis 3.There is fatty infiltration of the liver 4.Basilar fibrosis 5.Colectomy This exam was performed using automated exposure control, adjustment of mA or kV according to patient size, and/or use of iterative reconstruction technique. Electronically signed by Cirilo Williamson 11/06/2019 1:45 PM
--- NOTE | 2019-11-06 13:48 | Diag Imaging Result Doc PS360 ---
EXAM: CHEST-1 VIEW HISTORY: abd pain, vomiting, NGT placement TECHNIQUE: Chest abdomen single view COMPARISON: 09/14/2019 FINDINGS: There is a nasogastric tube overlying the stomach. No organomegaly. Prominent degenerative changes in the lower thoracic and upper lumbar spine. IMPRESSION: Nasogastric tube enters the stomach. Electronically signed by Cirilo Williamson 11/06/2019 1:46 PM
--- NOTE | 2019-11-06 14:01 | PROVIDER DOCUMENTATION ---
This chart was entered by Silvia Salas Scribe, acting as scribe for Honorio Ng MD. HPI-Abdominal Pain/GI Problem - General Chief Complaint: Abdominal Pain Stated Complaint: ABD PAIN Time Seen by Provider: 11/06/19 10:18 Source: patient, family (daughter) Allergies/Adverse Reactions: Patient Allergies Allergy/AdvReac Type Severity Reaction Status Date / Time No Known Allergies Allergy Verified 11/06/19 10:28 Home Medications: Home Medication List Medication Instructions Recorded Confirmed Last Taken Type Clonidine HCl 0.1 mg PO BID 01/17/16 11/06/19 11/06/19 History Omeprazole [Prilosec] 40 mg PO DAILY@0700 01/17/16 11/06/19 11/06/19 History Levetiracetam [Keppra] 1,500 mg PO BID #120 tablet 07/02/16 11/06/19 11/06/19 Rx Gabapentin [Neurontin] 400 mg PO TID #90 capsule 07/15/16 11/06/19 11/06/19 Rx Duloxetine HCl [Cymbalta] 60 mg PO DAILY 02/12/18 11/06/19 11/06/19 History Sucralfate 1 gm PO TID 02/12/18 11/06/19 11/06/19 History Fluticasone/Umeclidin/Vilanter 1 puff INH DAILY 07/22/19 11/06/19 11/05/19 History [Trelegy Ellipta 100-62.5-25] Ropinirole [Requip] 0.5 mg PO DAILY 07/22/19 11/06/19 10/30/19 History Meloxicam [Mobic] 15 mg PO DAILY 11/06/19 11/06/19 10/30/19 History - History of Present Illness-ABD Nature of Presenting Problems: 69 yowm presents to the ed with c/o abdominal pain in RLQ ad RUQ. pt sts pain onset was last night but worsened this am. pt has hax of SBO in jul 2019 and sts this feels the same. pt has had no gas or feces seen in iliostomy bag since yesterday Abdominal Pain Onset Location: reports: RUQ Pain Radiation: reports: RLQ Quality of Pain: reports: pressure Severity in ED: reports: moderate Onset/Duration: reports: last night Timing: reports: still present, constant Activities at Onset: reports: light activity Exposure to sick contacts?: No Modifying Factors: improves with: nothing Associated Symptoms: denies: back/neck pain, chest pain, diarrhea, fever/chills, nausea, shortness of breath, vomiting Last BM: last night Dark Stools Present?: reports: none noticed Rectal Bleeding: reports: none # of Diarrhea Episodes: 0 Rectal Pain: reports: none # of Vomiting Episodes: 0 Emesis Description: reports: none Bruising or Bleeding Gums?: No Similar Symptoms Previously?: Yes (hx of sbo) Recently seen or treated by another doctor?: No Review of Systems - Adult - REVIEW OF SYSTEMS - ADULT Constitutional: denies: chills, fever Eyes: reports: no symptoms reported Ears, Nose, Mouth & Throat: reports: no symptoms reported Cardiovascular: denies: chest pain, palpitations Respiratory: denies: cough, shortness of breath, wheezing Gastrointestinal: reports: see HPI, abdominal pain. denies: diarrhea, nausea, vomiting Genitourinary: reports: no symptoms reported Musculoskeletal: reports: no symptoms reported Integumentary: reports: no symptoms reported Neurological: reports: see HPI, tremors (worsening in the last month). denies: dizziness/vertigo, headache/migraines Psychiatric: reports: no symptoms reported Endocrine: reports: no symptoms reported Hematologic/Lymphatic: reports: no symptoms reported Allergic/Immunologic: reports: no symptoms reported All Other Systems: Reviewed and Negative Past History - Adult - PAST MEDICAL HISTORY-ADULT Review of Records: reports: Old Records Reviewed, Nursing Assessment Review, Medications Reviewed, Social history reviewed & non-contributory. Major Childhood Illnesses: reports: denies history Cardiovascular: reports: HTN, [place] Respiratory: reports: lung disease Gastrointestinal: reports: denies history Genitourinary: reports: denies history Musculoskeletal: reports: denies history Neurological: reports: CVA, Seizures/Epilepsy Psychiatric: reports: anxiety Endocrine/Immune: reports: denies history Other Conditions: reports: denies history Additional History: lymphoma - PRIOR SURGERIES/PROCEDURES Surgical/Procedure History: reports: bowel surgery (colon resection), other (finger amputation ) - IMMUNIZATION STATUS Childhood Immunizations: See Nurse Assessment Flu Vaccine: See Nurse Assessment - FAMILY HISTORY Family History: reviewed, not pertinent - SOCIAL HISTORY Smoking: denies Substance Use: denies Living Situation: family Physical Exam-General - PHYSICAL EXAM-ADULT Initial Vital Signs Reviewed: Yes (noted BP-163/108) - CONSTITUTIONAL General Appearance: appears well, alert, no apparent distress, obese - EYES Eyes: PERRL/EOMI, pink conjunctivae - HEAD, EARS, NOSE, MOUTH & THROAT HENMT: moist mucous membranes - NECK Neck: non-tender, full range of motion, supple, normal inspection - RESPIRATORY Respiratory: chest non-tender, lungs clear, normal breath sounds - CARDIOVASCULAR Cardiovascular: normal peripheral pulses, regular rate, rhythm - CHEST (BREASTS) Chest/Breast: deferred - GASTROINTESTINAL (ABDOMEN) Abdominal Exam: soft, abnormal bowel sounds (hypoactive), guarding, tenderness (RUQ more then RLQ), other (iliostomy with no gas or fecal material since yesterday afternoon. pt has well healed scar midline of abd). negative: rigid, rebound - GENITOURINARY Male Genitalia: deferred Rectal Exam: deferred Hemoccult Exam: deferred - LYMPHATIC Lymphatic: no adenopathy - MUSCULOSKELETAL Back Exam: no CVA tenderness, no vertebral tenderness Extremity: normal range of motion, non-tender, normal inspection - SKIN Integumentary: normal color, normal turgor, warm/dry - NEUROLOGIC Neurologic: grossly normal - PSYCHIATRIC Psych/Mental Status: normal mood/affect, normal thought content, normal thought process, oriented x 3 Progress - PLAN OF CARE/RESULTS Progress/Plan/Lab Results: Vital Signs - 8 hr 11/06/19 10:08 Temperature 97.9 F Pulse Rate 96 H Respiratory Rate 18 Blood Pressure 163/108 O2 Sat by Pulse Oximetry 96 Orders Category Date Time Status Cardiac Monitoring DIRECTED Care 11/06/19 10:39 Active IV Insertion ORDERED Care 11/06/19 10:39 Completed NG/OG/Feeding Tube Insertion ORDERED Care 11/06/19 10:40 Active CHEST-1 VIEW [RAD] Stat Exams 11/06/19 10:[address] ABD/PELVIS W/IV CONT ONLY [CT] Stat Exams 11/06/19 10:40 Ordered BLOOD CULTURE [BLDCUL] Stat Lab 11/06/19 10:43 Ordered CBC WITH DIFF [HEME] Stat Lab 11/06/19 10:43 Ordered CK PROFILE [SP CHEM] Stat Lab 11/06/19 10:43 Ordered COMPREHENSIVE METABOLIC PANEL [CHEM] Stat Lab 11/06/19 10:43 Ordered LACTATE, PLASMA [CHEM] Q3H Lab 11/06/19 10:44 Ordered LACTATE, PLASMA [CHEM] Q3H Lab 11/06/19 13:45 Uncollected LACTATE, PLASMA [CHEM] Q3H Lab 11/06/19 16:45 Uncollected PROTIME WITH INR [COAG] Stat Lab 11/06/19 10:43 Ordered PTT [COAG] Stat Lab 11/06/19 10:43 Ordered TROPONIN T HIGH SENSITIVITY Stat Lab 11/06/19 10:43 Ordered URINALYSIS W/POSS RFLX CULT [URINALYSIS] Stat Lab 11/06/19 10:39 Uncollected 0.9% Sodium Chloride Inj [Ns] 1,000 ml Med 11/06/19 10:40 Active IV 999 mls/hr Morphine Med 11/06/19 10:40 Discontinued 4 mg IV NOW ONE Ondansetron [Zofran] Med 11/06/19 10:40 Discontinued 4 mg IV NOW ONE Piperacillin/Tazobactam [Zosyn] 4.5 gm Med 11/06/19 10:40 Active 0.9% Sodium Chloride Inj [Ns] 100 ml IV NOW Oxygen Device Stat Oth 11/06/19 10:39 Active Result Diagrams: 11/06/19 10:40 11/06/19 10:40 - REASSESSMENT Reassessment #1 Time Reassessed: 13:58 Status: improving (With IVF, morphine/zofran. Given also Zosyn. NGT placed) - XRAY 1 XRAY: Bilateral XRAY Study: Chest Impression: See EMR Report (EXAM: CHEST-1 VIEW HISTORY: abd pain, vomiting, NGT placement TECHNIQUE: Chest abdomen single view COMPARISON: 09/14/2019 FINDINGS: There is a nasogastric tube overlying the stomach. No organomegaly. Prominent degenerative changes in the lower thoracic and upper lumbar spine. IMPRESSION: Nasogastric tube enters the stomach. Electronically signed by Cirilo Williamson 11/06/2019 1:46 PM 11/06/19 1346 Interpreting Physician: Cirilo Williamson MD Dictated Date/Time: 11/06/19 1345 cc: Honorio Ng MD; Georgie Mcdermott MD) - CT/MRI 1 CT Study: Abdomen, Pelvis Impression: See EMR Report (EXAM: CT ABD/PELVIS W/IV CONT ONLY HISTORY: sbo TECHNIQUE: CT abdomen and pelvis with intravenous contrast, but without oral c ontrast. COMPARISON: 07/22/2019 FINDINGS: There is scarring in the lower lungs. There calcified mediastinal and hilar lymph nodes with scattered granuloma. No pleural effusions. There are several stones within the gallbladder. There is fatty infiltration of the liver. No splenomegaly. No inflammation about the pancreas. Normal adrenal glands and kidneys. No hydronephrosis. No aortic aneurysm. Mild atherosclerosis. A nasogastric tube enters the stomach. There are dilated distal small bowel loops extending to the ostomy in the right lower quadrant. The urinary bladder is moderately distended and appears normal. Normal prostate. The colon has been resected. IMPRESSION: 1.Findings have the appearance of a small bowel obstruction with the narrowed segment being at the ostomy site. 2.Cholelithiasis 3.There is fatty infiltration of the liver 4.Basilar fibrosis 5.Colectomy This exam was performed using automated exposure control, adjustment of mA or kV according to patient size, and/or use of iterative reconstruction technique. Electronically signed by Cirilo Williamson 11/06/2019 1:45 PM 11/06/19 1345 Interpreting Physician: Cirilo Williamson MD Dictated Date/Time: 11/06/19 1340 cc: Honorio Ng MD; Georgie Mcdermott MD) - CONSULTS/PCP/HOSPITALIST Notification #1 *Consult/PCP/Hospitalist*: dr nathanael cosme Time Discussed: 13:50 (admit to hospitalist and will consult) Reason/Comments: phone consult #2 Consult: hospitalist dr yee Time Discussed: 13:56 (spoke with bradly) Consult Disposition: Will see in ED, Admit Departure - Departure Date of Disposition Decision: 11/06/19 Time of Disposition Decision: 13:59 DIAGNOSIS: Small bowel obstruction due to postoperative adhesions Disposition: ADMITTED INPATIENT 09 Certified Medical Emergency: Emergent Condition: Stable Referrals and Follow-Ups: Georgie Mcdermott MD [Primary Care Provider] - - Critical Care Note This patient required my direct & personal management of CC.: No Attestation - Physician/ ALEJANDRO Attestation Patient care was provided by Advanced Practice Provider:: No The physician spent face to face time with patient:: Yes Advanced Practice Provider documentation review:: Supervising physician onsite and consulted in the evaluation and care of this patient. The physician did have a face to face encounter with the patient. This chart was documented by the indicated scribe, (Silvia Salas Scribe) and accurately reflects the services I performed and decisions made by me, Honorio Ng MD, as attested by the provider's signature.
[2019-11-06] MEDS ORDERED: ZOFRAN IV PRN (14:32)
--- NOTE | 2019-11-06 14:42 | HISTORY AND PHYSICAL ---
PRIMARY CARE PHYSICIAN: Dr. Georgie Mcdermott. CHIEF COMPLAINT: Right upper and lower quadrant abdominal pain that began last night and worsened this morning. HISTORY OF PRESENTING ILLNESS: This is a 69-year-old male who presents to [facility] with complaints of right upper quadrant and right lower quadrant abdominal pain that began last night and worsened this a.m. He states he has had a history of small-bowel obstruction in July 2019 that required surgery. He currently has an ileostomy bag and has had very little gas and feces in his bag, has a small amount of liquid stool at this time. His workup on an abdominal and pelvic CT showed the appearance of a small-bowel obstruction with the narrowed segment being at the ostomy site. So, he will be admitted for further evaluation and treatment. PAST MEDICAL HISTORY: Small-bowel obstruction in July 2019, hypertension, NM, CVA, seizures, anxiety, COPD, and lymphoma. PAST SURGICAL HISTORY: A colectomy, finger amputation, ileostomy. FAMILY HISTORY: Reviewed and noncontributory. SOCIAL HISTORY: Currently lives with family. Denies any tobacco, alcohol or illicit drug use. ALLERGIES: He has no known drug allergies. HOME MEDICATIONS: Will all be held at this time due to his n.p.o. status. We will review those once he is able to take medications. LABORATORY DATA: Showed a white blood cell count of 7.56, hemoglobin 17.1, hematocrit 49.5, platelets 130,000. PT and INR of 13.2 and 0.99. Sodium 139, potassium 3.9, chloride 97, CO2 24, BUN of 8, creatinine 0.7, glucose 104. Plasma lactate 1.8. IMAGING: Chest x-ray showed a nasogastric tube entering the stomach. Abdomen and pelvic CT shows findings with the appearance of a small-bowel obstruction with the narrowed segment being at the ostomy site, cholelithiasis, fatty infiltration of the liver, a colectomy, and basilar fibrosis. REVIEW OF SYSTEMS: He denied any fever, chills, blurred vision, dizziness, chest pain, coughing, shortness of breath. He had right upper and lower quadrant abdominal pain. Denied any nausea, vomiting. He has had very little output in his ileostomy bag, only a small amount of liquid stool noted. No burning or hurting with urination. PHYSICAL EXAMINATION: VITAL SIGNS: On arrival, he had a temperature of 97.9 degrees, pulse 96, respirations 18, blood pressure 163/108. GENERAL: This is a 69-year-old male who is lying in the bed and answers questions appropriately. HEENT: Normocephalic, atraumatic. Normal ENT inspection. Oropharynx clear. Nares, he has an NG tube to low intermittent suction. NECK: Normal inspection, normal range of motion. LUNGS: Clear to auscultation bilaterally with equal lung expansion and chest wall movement. HEART: With regular rate and rhythm. No murmurs, rubs, or gallops. ABDOMEN: Soft. There is tenderness to the right upper and lower quadrants with guarding and tenderness. Bowel sounds were hypoactive. MUSCULOSKELETAL: He had 5/5 strength x4 extremities. NEUROLOGICAL: The cranial nerves 2-12 are grossly intact. ASSESSMENT: 1. Small-bowel obstruction. 2. Right upper and lower quadrant abdominal pain. 3. Hypertension. 4. History of lymphoma. PLAN: He will be admitted to the surgical unit, held n.p.o. We will consult General Surgery, place him on normal saline at 125 mL an hour, morphine 4 mg IV q.4, Zofran 4 mg IV q.4 hours p.r.n. He has an NG tube to low intermittent suction. Further orders after seen by attending and by security and privacy consultant. Dictated by SANDRA Chahal for Osbaldo Hicks MD cc: SANDRA Chahal MD Martha Read, MD
[2019-11-06] MEDS: MORPHINE IV PRN ×3 (14:55→22:09)
[2019-11-06] MEDS: NS 1,000 ML IV SCH ×2 (14:56→22:12)
--- NOTE | 2019-11-06 15:14 | GENERAL SURGERY CONSULTATION ---
DATE: 11/06/2019 REQUESTING PHYSICIAN: Emergency Department. REASON FOR CONSULTATION: Bowel obstruction. HPI: A 69-year-old gentleman well known to my group who is presenting with abdominal pain right lower, right upper quadrant starting last night, worsen this morning. He has had a history of small bowel obstructions and felt the same as previous. He has had decrease in his ileostomy output since yesterday. He had a CT scan done in the emergency department showed a bowel obstruction with potential transition point at the ileostomy. He does report some pain at his ileostomy. PAST MEDICAL HISTORY: B-cell lymphoma, history of toxic colitis, hypertension, gastroesophageal reflux disease, chronic pain, history anxiety, history depression, history of alcohol induced seizure. PAST SURGICAL HISTORY: Includes total abdominal colectomy, finger amputation, cervical laminectomy, Port-A-Cath, elbow surgery and previous exploratory laparotomy with lysis of adhesions. SOCIAL HISTORY: No alcohol, tobacco. FAMILY HISTORY: Reviewed with patient, noncontributory. MEDICATIONS: Full list in MAR reviewed. ALLERGIES: None. REVIEW OF SYSTEMS: A full 14 systems reviewed and negative as specified in HPI. PHYSICAL EXAMINATION: Vital Signs: Patient is currently afebrile, his vital signs stable. General: No acute distress. Alert, interactive male looks stated age. HEENT: Normocephalic, atraumatic. Pupils equal, round, reactive to light. Mucous membranes moist. Oropharynx benign. Neck: Supple. Trachea midline. Cardiovascular: Regular rate and rhythm. Lungs: Grossly clear. Abdomen: Soft. Previous midline incision noted. Ileostomy in the right lower quadrant. This was digitized, it was very tight toward the fascia. There was some liquid output in the appliance. The stoma itself appears to be viable. Extremities: Moves all extremities. Neurologic: Grossly intact. Skin: No signs of jaundice. Vascular: All extremities perfused. LABORATORY: White blood count 7, hematocrit 49, platelet count is normal. INR is normal. Remainder of labs reviewed. CT scan independently reviewed and radiology report reviewed. ASSESSMENT AND PLAN: A 69-year-old gentleman with bowel obstruction. Bowel obstructive. This time will try to manage him nonoperatively. Will put an NG tube in and decompress him. He is to be admitted by the hospitalist. If he does not seem to improve may need consider placing a Paredes catheter through his ileostomy to at least decompress him. He has had this ileostomy for a while so unsure why become a stricture now but it may just be that is kinked off from his other bowel obstruction and causing residual bowel obstruction but will need to see how he does and make further decisions in the future. cc: Guanakito Peterson MD
[2019-11-06 15:50] LABS: URINE SOURCE CLEAN CATCH
[2019-11-06 15:53] LABS: BILIRUBIN URINE NEGATIVE (NEGATIVE); BLOOD URINE NEGATIVE (NEGATIVE); COLOR YELLOW; GLUCOSE URINE NEGATIVE (NEGATIVE); KETONE URINE NEGATIVE (NEGATIVE); LEUKOCYTES URINE NEGATIVE (NEGATIVE); NITRITE URINE NEGATIVE (NEGATIVE); PH URINE 6.5; PROTEIN URINE TRACE mg/dL (NEGATIVE); TURBIDITY URINE CLEAR (CLEAR); UR EPITHELIAL CELLS <10 /HPF (<10); URINE BACTERIA NEGATIVE /HPF; URINE RBC <10 /HPF (<10); URINE WBC <10 /HPF (<10); UROBILINOGEN URINE NORMAL (NORMAL)
[2019-11-06] MEDS: PROTONIX IV SCH (17:56)
[2019-11-06] MEDS: SODIUM CHLORIDE 0.9% INJ SCH (17:56)
--- NOTE | 2019-11-06 18:01 | HISTORY AND PHYSICAL ---
ADDENDUM: The patient has a history of B-cell lymphoma. He has had colitis due to C difficile, I believe, and he actually had to have partial colectomy for which he has an ostomy. Now he came in with pain although he still has ostomy output although it has been diminished. CT showed small bowel obstruction, so he was admitted. 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 So we are going to keep him NPO, fluids, pain control, and follow closely. cc: Osbaldo Hicks MD
[2019-11-06 18:46] LABS: SP GRAVITY URINE 1.005
[2019-11-07] MEDS: OFIRMEV 1000 MG/ISOTONIC SOLN 1,000 MG/100 ML BOTTLE IV PRN ×4 (00:26→17:54)
--- NOTE | 2019-11-07 07:03 | GENERAL SURGERY PROGRESS NOTE ---
DATE: 11/07/2019 SUBJECTIVE: Patient doing okay. He says he feels a little bit better after what sounds like he had his Protonix. He is having some ostomy output, but it is not a lot. He is feeling a little better with the NG tube. OBJECTIVE: Vital Signs: The patient is currently afebrile. His vital signs are stable. General: No acute distress. HEENT: Normocephalic, atraumatic. Pupils equal, round, reactive to light. Mucous membranes moist. Oropharynx benign. NG tube in place with 420 recorded out. Cardiovascular: Regular rate and rhythm. Lungs: Grossly clear. Abdomen: Soft, nontender. Ostomy has liquid in the appliance. Extremities: Moves all extremities. Neurologic: Grossly intact. Skin: No signs of jaundice. Vascular: All extremities perfused. LABORATORY DATA: None as of yet. ASSESSMENT AND PLAN: A 69-year-old gentleman with a small-bowel obstruction. Small-bowel obstruction. At this time, will continue nonoperative management. If he seems to still have some issues with ileostomy output, may consider placement of a red rubber catheter or Paredes catheter through it, but otherwise he is having some degree of output, so will continue to monitor him. cc: Guanakito Peterson MD
[2019-11-07 08:04] LABS: BASO# 0.02 X1000 (0.0-0.2); BASO% 0.5 % (0.0-0.8); EOS# 0.12 X1000 (0.0-0.7); EOS% 2.8 % (0.0-10.0); HEMATOCRIT 45.3 % (42.0-52.0); HEMOGLOBIN 15.8 g/dL (14.0-18.0); LYMPH# 0.78 X1000 (1.2-3.4); LYMPH% 18.5 % (20.5-51.1); MCH 36.2 PG (27-31); MCHC 34.9 g/dL (33-37); MCV 103.7 FL (81-99); MONO# 0.63 X1000 (0.11-0.59); MONO% 14.9 % (1.7-9.3); MPV 11.4 FL (7.4-10.4); NEUT# 2.67 X1000 (1.4-6.5); NEUT% 63.3 % (42.2-75.2); PLT 124 X1000 (130-400); RBC 4.37 XMIL (4.7-6.1); RDW 13.9 % (11.5-14.5); WBC 4.22 X1000 (4.8-10.8)
[2019-11-07 08:29] LABS: AGAP 14; BUN 17 mg/dL (8-22); CALCIUM 7.9 mg/dL (8.8-10.2); CHLORIDE 99 mmol/L (98-107); COSMO 274; ESTIMATED GFR > 60; GLUCOSE 103 mg/dL (70-104); POTASSIUM 4.1 mmol/L (3.5-5.1); SODIUM 136 mmol/L (136-145); TCO2 23 mmol/L (25-35)
--- NOTE | 2019-11-07 08:50 | Diag Imaging Result Doc PS360 ---
EXAM: ABDOMEN FLAT/UPRIGHT 11/07/2019 HISTORY: pain TECHNIQUE: Flat and upright abdomen COMMENT: There are air-fluid levels in multiple small bowel loops present in the right, mid and left upper quadrant of the abdomen. There was considerable dilatation of small bowel loops seen on the previous study of 07/27/2019. This is actually not as severe on the current study. There is contrast material in the urinary bladder. There is an NG tube in the stomach. The stomach is not distended. IMPRESSION: Small bowel obstruction, not as severe as on 07/27/2019. Electronically signed by Kulwant Thompson 11/07/2019 8:48 AM
[2019-11-07] MEDS: NS 1,000 ML IV SCH ×2 (13:01→22:12)
--- NOTE | 2019-11-07 17:37 | PROGRESS NOTE ---
DATE: 11/07/2019 SUBJECTIVE: The patient says he feels better. OBJECTIVE: Vital Signs: Blood pressure is 126/76, heart rate 91, respiratory 16, temperature 98.1 degrees, 96% on room air. Cardiovascular: Regular rate and rhythm. Pulmonary: Bilateral breath sounds, clear to auscultation. Abdomen: Soft, nontender, nondistended. Bowel sounds are positive. Extremities: No clubbing or cyanosis. Lymphatic: No peripheral edema. Neurological: Nonfocal. LABORATORY DATA: White count is 4, hemoglobin and hematocrit 15 and 45, platelets 124,000. Basic was normal. IMAGING: Plain films still showed persistent small-bowel obstruction. PROBLEM LIST: 1. Small bowel obstruction. We will continue NPO, NG decompression. Surgery is following. Continue to follow closely. Repeat plain films tomorrow. Continue pain control, antiemetic control. 2. Seizure disorder. I am going to put him on IV Keppra until he can take p.o. and we will follow. His blood pressure is actually pretty stable. DISPOSITION: Pending resolution of his small bowel obstruction. cc: Osbaldo Hicks MD
[2019-11-07] MEDS: PROTONIX IV SCH (17:56)
[2019-11-07] MEDS: SODIUM CHLORIDE 0.9% INJ SCH (17:56)
[2019-11-07] MEDS: KEPPRA 1,500 MG in NS 100 ML IV SCH (18:22)
[2019-11-07] MEDS: MORPHINE IV PRN (22:12)
[2019-11-08] MEDS: OFIRMEV 1000 MG/ISOTONIC SOLN 1,000 MG/100 ML BOTTLE IV PRN ×3 (01:27→17:16)
[2019-11-08] MEDS: NS 1,000 ML IV SCH ×3 (01:30→20:07)
[2019-11-08] MEDS: KEPPRA 1,500 MG in NS 100 ML IV SCH ×2 (04:26→17:08)
--- NOTE | 2019-11-08 06:51 | GENERAL SURGERY PROGRESS NOTE ---
DATE: 11/08/2019 SUBJECTIVE: Patient seems to be doing okay. He has had more ileostomy output, almost 2 liters recorded out. OBJECTIVE: Vital Signs: Patient is currently afebrile. His vital signs are stable. General Exam: No acute distress. HEENT: Normocephalic, atraumatic. Pupils equal, round, reactive to light. Mucous membranes moist. Oropharynx benign. Neck: Supple. Trachea midline. Cardiovascular: Regular rate and rhythm. Lungs: Grossly clear. Abdomen: Soft. Ileostomy functioning. No peritoneal signs. Extremities: Moves all extremities. Neurologic: Grossly intact. Skin: No signs of jaundice. Vascular: All extremities perfused. LABORATORY: None this morning as of yet. ASSESSMENT AND PLAN: A 69-year-old gentleman with a small bowel obstruction. 1. Small bowel obstruction. At this time seems to be improving. We will remove his nasogastric tube and let him have some clear liquids. He is having ileostomy output. I told him to let the nursing staff know if he has any nausea. cc: Guanakito Peterson MD
[2019-11-08 08:06] LABS: BASO# 0.02 X1000 (0.0-0.2); BASO% 0.5 % (0.0-0.8); EOS# 0.21 X1000 (0.0-0.7); EOS% 4.9 % (0.0-10.0); HEMATOCRIT 44.9 % (42.0-52.0); HEMOGLOBIN 14.7 g/dL (14.0-18.0); LYMPH# 0.95 X1000 (1.2-3.4); LYMPH% 22.2 % (20.5-51.1); MCH 35.3 PG (27-31); MCHC 32.7 g/dL (33-37); MCV 107.9 FL (81-99); MONO% 11.7 % (1.7-9.3); MPV 11.6 FL (7.4-10.4); NEUT# 2.59 X1000 (1.4-6.5); NEUT% 60.7 % (42.2-75.2); PLT 101 X1000 (130-400); RBC 4.16 XMIL (4.7-6.1); RDW 13.7 % (11.5-14.5); WBC 4.27 X1000 (4.8-10.8)
[2019-11-08 08:33] LABS: AGAP 15; BUN 23 mg/dL (8-22); CALCIUM 7.8 mg/dL (8.8-10.2); CHLORIDE 104 mmol/L (98-107); COSMO 285; CREATININE 0.8 mg/dL (0.7-1.2); ESTIMATED GFR > 60; GLUCOSE 98 mg/dL (70-104); POTASSIUM 3.5 mmol/L (3.5-5.1); SODIUM 141 mmol/L (136-145); TCO2 22 mmol/L (25-35)
[2019-11-08] MEDS: MORPHINE IV PRN (15:06)
[2019-11-08] MEDS: PROTONIX IV SCH (17:08)
[2019-11-08] MEDS ORDERED: TYLENOL PO PRN (18:19)
--- NOTE | 2019-11-08 18:40 | PROGRESS NOTE ---
DATE: 11/08/2019 SUBJECTIVE: Patient has no major complaints. OBJECTIVE: Vital signs: Blood pressure 159/94, heart rate of 72, respiratory rate of 18, temperature 97.5 degrees, 100% on room air. Cardiovascular: Regular rate and rhythm. Pulmonary: Bilateral breath sounds, clear to auscultation. GI: Soft, nontender, nondistended. Bowel sounds were positive. LABORATORY DATA: White count 4, hemoglobin and hematocrit 14 and 44, platelets of 101,000. Basic was normal. PROBLEM LIST: 1. Small bowel obstruction, improved. Ostomy output has improved. Nasogastric has been removed. He has been placed on a clear liquid diet. We will continue to follow. His nurse has asked about resuming his home medications, which sounds reasonable. 2. Seizure disorder, stable on the Keppra. We will resume his p.o. medications and follow. 3. Will cut his intravenous fluids in half and see how he does. Hopefully discharge in the next 1 to 2 days. cc: Osbaldo Hicks MD
[2019-11-08] MEDS: NEURONTIN PO SCH (20:08)
[2019-11-08] MEDS: CATAPRES PO SCH (20:08)
[2019-11-09] MEDS: MORPHINE IV PRN ×4 (01:57→20:10)
[2019-11-09] MEDS: KEPPRA PO SCH ×2 (05:26→16:43)
[2019-11-09] MEDS: PRILOSEC PO SCH (05:27)
[2019-11-09] MEDS ORDERED: PRILOSEC PO SCH (07:00)
[2019-11-09] MEDS ORDERED: NON-FORMULARY BULK MED INH SCH (07:30)
[2019-11-09 07:57] LABS: BASO# 0.01 X1000 (0.0-0.2); BASO% 0.2 % (0.0-0.8); EOS# 0.15 X1000 (0.0-0.7); EOS% 3.6 % (0.0-10.0); HEMATOCRIT 42.4 % (42.0-52.0); HEMOGLOBIN 14.6 g/dL (14.0-18.0); LYMPH# 1.04 X1000 (1.2-3.4); LYMPH% 25.3 % (20.5-51.1); MCH 35.9 PG (27-31); MCHC 34.4 g/dL (33-37); MCV 104.2 FL (81-99); MONO# 0.51 X1000 (0.11-0.59); MONO% 12.4 % (1.7-9.3); MPV 11.5 FL (7.4-10.4); NEUT% 58.5 % (42.2-75.2); PLT 101 X1000 (130-400); RBC 4.07 XMIL (4.7-6.1); RDW 12.9 % (11.5-14.5); WBC 4.11 X1000 (4.8-10.8)
[2019-11-09 08:23] LABS: AGAP 17; BUN 7 mg/dL (8-22); CHLORIDE 102 mmol/L (98-107); COSMO 277; CREATININE 0.7 mg/dL (0.7-1.2); ESTIMATED GFR > 60; GLUCOSE 129 mg/dL (70-104); POTASSIUM 3.3 mmol/L (3.5-5.1); SODIUM 139 mmol/L (136-145); TCO2 20 mmol/L (25-35)
--- NOTE | 2019-11-09 08:46 | GENERAL SURGERY PROGRESS NOTE ---
DATE: 11/09/2019 SUBJECTIVE: Patient seems to be doing well. He has actually had 3+ L come out of his ileostomy. He says he is feeling better. He is tolerating his clear liquids. OBJECTIVE: Vital Signs: Patient is currently afebrile. His vital signs are stable. General: No acute distress. HEENT: Normocephalic, atraumatic. Pupils equal, round, reactive to light. Mucous membranes moist. Oropharynx benign. Neck: Supple. Trachea midline. Cardiovascular: Regular rate and rhythm. Lungs: Grossly clear. Abdomen: Soft. Ileostomy functioning. Extremities: Moves all extremities. Neurologic: Grossly intact. Skin: No signs of jaundice. Vascular: All extremities perfused. LABORATORY DATA: None this morning as of yet. ASSESSMENT AND PLAN: A 69-year-old gentleman with a resolving small-bowel obstruction. Resolving small-bowel obstruction. At this time, we will advance him to a regular diet. We do need to watch his ileostomy output because if he is having 3+ L, he could get dehydrated, and discussed this with the patient, make sure he stays hydrated. We will see how he does with a regular diet and go from there. cc: Guanakito Peterson MD
[2019-11-09] MEDS: CYMBALTA PO SCH (09:06)
[2019-11-09] MEDS: NEURONTIN PO SCH ×3 (09:06→20:10)
[2019-11-09] MEDS: CATAPRES PO SCH ×2 (09:06→20:10)
[2019-11-09] MEDS: REQUIP PO SCH (09:06)
[2019-11-09] MEDS ORDERED: KLOR-CON PO ONE (12:49)
[2019-11-09] MEDS: PROTONIX IV SCH (16:43)
[2019-11-09] MEDS: NS 1,000 ML IV SCH (16:44)
--- NOTE | 2019-11-09 18:37 | PROGRESS NOTE ---
DATE: 11/09/2019 Potassium is 3.3. PROBLEM LIST: 1. Small bowel obstruction. I think it is pretty much resolved. Output is good. NG is out. He has advanced his diet. Seems to be doing okay. 2. Seizure disorder is stable. 3. Hypokalemia. He seems to be stable from that standpoint. DISPOSITION: I anticipate discharge tomorrow, of course, per Dr. Peterson's recommendations. cc: Osbaldo Hicks MD
[2019-11-10] MEDS: MORPHINE IV PRN ×2 (03:53→09:07)
[2019-11-10] MEDS: KEPPRA PO SCH (05:45)
[2019-11-10] MEDS: PRILOSEC PO SCH ×2 (07:00→07:49)
--- NOTE | 2019-11-10 07:40 | GENERAL SURGERY PROGRESS NOTE ---
DATE: 11/10/2019 SUBJECTIVE: Patient seems to be doing okay. His ileostomy output slowed down but is still over liter. He is doing well. He is not having any major issues. OBJECTIVE: Vital Signs: The patient is currently afebrile. His vital signs are stable. General: No acute distress. HEENT: Normocephalic, atraumatic. Pupils equal, round, reactive to light. Mucous membranes moist. Oropharynx benign. Neck: Supple. Trachea midline. Cardiovascular: Regular rate and rhythm. Lungs: Grossly clear. Abdomen: Soft. Ileostomy functioning. Extremities: Moves all extremities. Neurologic: Grossly intact. Skin: No signs of jaundice. Vascular: All extremities perfused. LABORATORY DATA: None. ASSESSMENT AND PLAN: A 69-year-old gentleman with resolving small-bowel obstruction. Resolving small-bowel obstruction. At this time, I think the patient is probably safe to be discharged home. We just need to follow his ileostomy output at home so he does not get dehydrated, and discussed this with the patient. cc: Guanakito Peterson MD
[2019-11-10 08:19] VITALS: BP 161/95
[2019-11-10] MEDS: CATAPRES PO SCH (09:06)
[2019-11-10] MEDS: REQUIP PO SCH (09:06)
[2019-11-10] MEDS: CYMBALTA PO SCH (09:06)
[2019-11-10] MEDS: NEURONTIN PO SCH (09:06)
--- NOTE | 2019-11-11 08:40 | DISCHARGE SUMMARY ---
ADMISSION DATE: 11/06/2019 DISCHARGE DATE: 11/10/2019 DISCHARGE DIAGNOSES: 1. Small bowel obstruction. 2. History of recent resection and ileostomy. 3. Seizure disorder. 4. Hypokalemia. CONSULTATIONS: Surgery. HOSPITAL COURSE: Briefly, this is a 69-year-old man with history of small bowel obstruction, possibly lymphoma, and he had a bowel resection which now he has an ileostomy which had slowed output. His CT scan on admission was consistent with a small bowel obstruction. He had abdominal pain, nausea, vomiting. Dr. Peterson was consulted, recommended conservative measures, but he was doing okay with bowel rest. He still had bowel obstruction per his plain films on the . NG was in place and they were considering dilating his ileostomy just to help decompress it, but I am not quite sure that ended up happening. By the , NG tube was removed. He was advanced to clears. The following day, he was on soft foods, and on the , he was felt stable for discharge. He had decent ileostomy output, a total of 4250, then 1450. DISCHARGE CONDITION: Stable. DISCHARGE MEDICATIONS: 1. Clonidine 0.1 b.i.d. 2. Cymbalta 60 daily. 3. Mobic 15 daily. 4. Prilosec 40 daily. 5. Requip 0.5 mg daily. 6. Sucralfate 1 g t.i.d.. 7. Fluticasone furoate, umeclidinium vilanterol, which is Trelegy, daily. 8. Keppra 715 100 b.i.d. 9. Neurontin 400 t.i.d. FOLLOWUP: He is to follow up with Dr. Perry when stable. His PCP is Dr. Georgie Dee. 32 minute discharge. cc: Osbaldo Hicks MD
== END 2019-11-10 14:15 | disposition home or self-care (01) | DRG 394 ==
LOC: ED 09:55 → EDIPHOLD 14:07 → 4N 15:57
PROVIDERS: ATTEND Internal Medicine

== ENCOUNTER 2019-11-17 14:25 | Inpatient (IN) ==
--- NOTE | 2019-11-17 14:37 | PROVIDER DOCUMENTATION ---
HPI-Abdominal Pain/GI Problem - General Stated Complaint: abd pain Time Seen by Provider: 11/17/19 14:28 Source: patient Allergies/Adverse Reactions: Patient Allergies Allergy/AdvReac Type Severity Reaction Status Date / Time No Known Allergies Allergy Verified 11/17/19 14:59 Home Medications: Home Medication List Medication Instructions Recorded Confirmed Last Taken Type Clonidine HCl 0.1 mg PO BID 01/17/16 11/17/19 11/06/19 History Omeprazole [Prilosec] 40 mg PO DAILY@0700 01/17/16 11/17/19 11/06/19 History Levetiracetam [Keppra] 1,500 mg PO BID #120 tablet 07/02/16 11/17/19 11/06/19 Rx Gabapentin [Neurontin] 400 mg PO TID #90 capsule 07/15/16 11/17/19 11/06/19 Rx Duloxetine HCl [Cymbalta] 60 mg PO DAILY 02/12/18 11/17/19 11/06/19 History Sucralfate 1 gm PO TID 02/12/18 11/17/19 11/06/19 History Fluticasone/Umeclidin/Vilanter 1 puff INH DAILY 07/22/19 11/17/19 11/05/19 History [Trelegy Ellipta 100-62.5-25] Ropinirole [Requip] 0.5 mg PO DAILY 07/22/19 11/17/19 10/30/19 History Meloxicam [Mobic] 15 mg PO DAILY 11/06/19 11/17/19 10/30/19 History - History of Present Illness-ABD Nature of Presenting Problems: 69 YOM with PMH of colostomy and SBO presents via EMS for increased abdominal pain. He reports 1 wk ago he had a SBO and this feels the same. He denies N/V, fever, chills. He does reports decreased ostomy output. Last SBO resolved without surgery. Abdominal Pain Onset Location: reports: generalized abdomen Pain Radiation: reports: no radiation Quality of Pain: reports: aching, cramping Severity in ED: reports: severe Onset/Duration: reports: last night (at midnight) Timing: reports: still present Activities at Onset: reports: none Exposure to sick contacts?: No Modifying Factors: improves with: nothing Last BM: other (ostomy with decreased output) Dark Stools Present?: reports: none noticed Rectal Bleeding: reports: none Rectal Pain: reports: none Emesis Description: reports: none Bruising or Bleeding Gums?: No Similar Symptoms Previously?: Yes Recently seen or treated by another doctor?: Yes Review of Systems - Adult - REVIEW OF SYSTEMS - ADULT Constitutional: reports: no symptoms reported. denies: see HPI, chills, fever, fatique, night sweats, weight gain, weight loss, other Eyes: reports: no symptoms reported. denies: see HPI, discharge, dry eyes, decreased vision, blurred vision, double vision, eye pain, redness, other Ears, Nose, Mouth & Throat: reports: no symptoms reported. denies: see HPI, ear discharge, ear pain, hearing loss, tinnitus, epistaxis, sinus problem, nose pain, loose teeth, mouth/dental pain, mouth swelling, hoarseness, throat pain, throat swelling, other Cardiovascular: reports: no symptoms reported. denies: see HPI, chest pain, edema, heart murmur, irregular heart rate, orthopnea, palpitations, poor circulation, PND, syncope, other Respiratory: reports: no symptoms reported. denies: see HPI, chronic cough, cough, dyspnea on exertion, excessive sputum production, hemoptysis, pleurisy, shortness of breath, wheezing, other Gastrointestinal: reports: see HPI, abdominal pain. denies: no symptoms reported, hematemesis, constipation, diarrhea, difficulty swallowing, frequent heartburn, nausea, poor appetite, rectal bleeding, vomiting, other Genitourinary: reports: no symptoms reported. denies: see HPI, dysuria, discharge, frequency, flank pain, frequent UTI's, hematuria, hesitency, incontinence, urinary retention, urgency, other Musculoskeletal: reports: no symptoms reported. denies: see HPI, bone pain, back pain, frequent leg cramps, joint pain, joint swelling, muscle aches, muscle weakness, neck pain, other Integumentary: reports: no symptoms reported. denies: see HPI, hives, hair loss, itching, mole changes, nail changes, rash, skin sores/ulcer, skin thickening, other Neurological: reports: no symptoms reported. denies: see HPI, ataxia, dizziness/vertigo, headache/migraines, loss of balance, numbness, paresthesia, seizure, slurred speech, syncope, tremors, other Psychiatric: reports: no symptoms reported. denies: see HPI, anxiety, anti- depressant use, alcohol/drug dependence, depression, emotional problems, insomnia, panic attacks, suicidal thoughts, other Endocrine: reports: no symptoms reported. denies: see HPI, change in skin pigment, excessive sweating, goiter, cold intolerance, heat intolerance, increased hunger, increased thirst, polyuria, other Hematologic/Lymphatic: reports: no symptoms reported. denies: see HPI, blood clots, easy bruising, low blood count, lymphedema, prolonged bleeding, swollen lymph nodes, transfusions, other Allergic/Immunologic: reports: no symptoms reported. denies: see HPI, allergic reactions, allergic rhinitis, asthma, eczema, food allergy, frequent infections, hay fever, hives, positive PPD, urticaria, other Past History - Adult - PAST MEDICAL HISTORY-ADULT Review of Records: reports: Old Records Reviewed, Nursing Assessment Review, Social history reviewed & non-contributory. Major Childhood Illnesses: reports: denies history Cardiovascular: reports: HTN, [place] Respiratory: reports: lung disease Gastrointestinal: reports: denies history Obstetrical/Gynecological: reports: denies history Genitourinary: reports: denies history Musculoskeletal: reports: denies history Neurological: reports: CVA, Seizures/Epilepsy Psychiatric: reports: anxiety Endocrine/Immune: reports: denies history Other Conditions: reports: denies history Additional History: lymphoma - PRIOR SURGERIES/PROCEDURES Surgical/Procedure History: reports: bowel surgery (colon resection), other (finger amputation ) - IMMUNIZATION STATUS Childhood Immunizations: See Nurse Assessment Flu Vaccine: See Nurse Assessment - FAMILY HISTORY Family History: reviewed, not pertinent Physical Exam-General - PHYSICAL EXAM-ADULT Initial Vital Signs Reviewed: Yes - CONSTITUTIONAL General Appearance: alert, no apparent distress - EYES Eyes: PERRL/EOMI, pink conjunctivae - HEAD, EARS, NOSE, MOUTH & THROAT HENMT: normocephalic/atraumatic, moist mucous membranes, normal ENT inspection - NECK Neck: non-tender, full range of motion, supple - RESPIRATORY Respiratory: chest non-tender, lungs clear, normal breath sounds, no pleuratic chest pain, no respiratory distress, no accessory muscle use - CARDIOVASCULAR Cardiovascular: normal peripheral pulses, no edema, no gallop, no JVD, no murmur , tachycardia (111 on EMS) - GASTROINTESTINAL (ABDOMEN) Abdominal Exam: non tender, soft, other (ostomy in place) - LYMPHATIC Lymphatic: no adenopathy - MUSCULOSKELETAL Back Exam: normal inspection Extremity: normal range of motion, non-tender, normal gait, normal inspection, no pedal edema, no calf tenderness Peripheral Pulses: radial (R): 2+, radial (L): 2+ - SKIN Integumentary: normal color, normal turgor, warm/dry - NEUROLOGIC Neurologic: grossly normal - PSYCHIATRIC Psych/Mental Status: normal mood/affect, oriented x 3 Progress - PLAN OF CARE/RESULTS Progress/Plan/Lab Results: Orders Category Date Time Status Saline Loc NOW Care 11/17/19 14:33 Ordered KUB ABDOMEN [RAD] Stat Exams 11/17/19 14:32 Ordered CBC WITH ELECTRONIC DIFF [HEME] Stat Lab 11/17/19 14:32 Uncollected COMPREHENSIVE METABOLIC PANEL [CHEM] Stat Lab 11/17/19 14:32 Uncollected PT [PROTIME WITH INR] [COAG] Stat Lab 11/17/19 14:32 Uncollected PTT [COAG] Stat Lab 11/17/19 14:32 Uncollected 1430: reviewed initial POC with patient while on EMS stretcher Result Diagrams: 11/17/19 15:09 11/17/19 15:09 - XRAY 1 XRAY Study: Abdomen Impression: See EMR Report (EXAM: KUB ABDOMEN 11/17/2019 HISTORY: recent SBO, increased pain TECHNIQUE: KUB COMMENT: There is still some dilatation of small bowel loops in the upper and mid abdomen. Risk fecalized contents in the right abdomen which appears to be just proximal to the ostomy. A similar appearance was present on the CT of 11/06/2019. IMPRESSION: Worsened fecalization of contents in the distal small bowel just proximal to the ostomy. Electronically signed by Kulwant Thompson 11/17/2019 3:33 PM 11/17/19 1533 Interpreting Physician: Kulwant Thompson MD Dictated Date/Time: 11/17/19 1532 cc: Lorraine Russo; Georgie Mcdermott MD) - CT/MRI 1 CT Study: Abdomen, Pelvis Impression: See EMR Report (EXAM: CT ABD/PELVIS W/IV CONT ONLY 11/17/2019 HISTORY: abd pain, SBO TECHNIQUE: This exam was performed using automated exposure control, adjustment of mA or kV according to patient size, and/or use of iterative reconstruction technique. COMMENT: The current study is compared with the previous examination of 11/06/2019. There is some ill-defined opacity in both lower lobes which is associated with some degree of bronchiectasis particularly in the right lower lobe. This has not changed significantly since the previous study. There is some retained fluid contents in the stomach. The NG tube which was present on the previous study has apparently been removed. There are multiple small densely calcified gallstones. The gallbladder is stable in appearance. The liver is hypodense suggesting fatty change. The spleen adrenal glands and pancreas are stable in appearance. The kidneys are without evidence of hydronephrosis masses or stones. The aorta is not distended. The mesenteric and renal arteries are patent. There is dilatation of the distal small bowel with fluid and in the case of the most distal segment proximal to the ostomy in the right lower quadrant there is fecalization of the contents of the bowel, which has worsened since the previous study (and which was also demonstrated and reported on the basis of a recent KUB.) There is some free fluid present in the right paracolic gutter region which was not present at the time the previous study. Pelvis: The urinary bladder is not distended. The regional skeleton is stable in appearance. IMPRESSION: 1. Basilar pulmonary fibrosis and bronchiectasis, stable since 11/06/2019. 2. Distal small bowel obstruction pr esumably due to stricture at the ileostomy, exacerbated by fecalization of bowel contents proximal to this point. Electronically signed by Kulwant Thompson 11/17/2019 5:49 PM [id number]/17/[id number] Interpreting Physician: Kulwant Thompson MD Dictated Date/Time: 11/17/19 174 cc: Lorraine Russo; Georgie Mcdermott MD) - CONSULTS/PCP/HOSPITALIST Notification #1 *Consult/PCP/Hospitalist*: Dr. Perry Time Discussed: 18:19 Consult Disposition: Admit (to hospitalist) #2 Consult: Whitney FLORES Time Discussed: 18:35 Consult Disposition: Admit Departure - Departure Date of Disposition Decision: 11/17/19 Time of Disposition Decision: 18:34 DIAGNOSIS: Abdominal pain, Small bowel obstruction, Leukocytosis Disposition: ADMITTED INPATIENT 09 Certified Medical Emergency: Emergent Condition: Stable Referrals and Follow-Ups: Georgie Mcdermott MD [Primary Care Provider] - - Critical Care Note This patient required my direct & personal management of CC.: Yes Total Time (mins): 32 Critical Care Statement: This patient required my direct personal management to treat or rule out processes, the absence of which, could potentiallly result in sudden, clinically significant life or limb threatening deterioration. Attestation - Physician/ ALEJANDRO Attestation Patient care was provided by Advanced Practice Provider:: Yes Advanced Practice Provider:: Lorraine Russo Advanced Practice Provider documentation review:: The Mid-level provider documentation, treatment plan and medical decision making was reviewed by the physician who agrees with all treatment and medical decision making by the MLP. The physician spent face to face time with patient:: No Advanced Practice Provider documentation review:: Supervising physician onsite and consulted in the evaluation and care of this patient. The physician did not have a face to face encounter with the patient.
[2019-11-17 15:33] LABS: BASO# 0.06 X1000 (0.0-0.2); BASO% 0.3 % (0.0-0.8); EOS# 0.09 X1000 (0.0-0.7); EOS% 0.5 % (0.0-10.0); HEMATOCRIT 49.3 % (42.0-52.0); HEMOGLOBIN 17.2 g/dL (14.0-18.0); IMM GRAN# 0.05 X1000 (0.0-0.04); IMM GRAN% 0.3 % (0.0-0.5); LYMPH# 1.28 X1000 (1.2-3.4); LYMPH% 6.5 % (20.5-51.1); MCH 35.4 PG (27-31); MCHC 34.9 g/dL (33-37); MCV 101.4 FL (81-99); MONO# 0.98 X1000 (0.11-0.59); MPV 10.9 FL (7.4-10.4); NEUT# 17.21 X1000 (1.4-6.5); NEUT% 87.4 % (42.2-75.2); PLT 200 X1000 (130-400); RBC 4.86 XMIL (4.7-6.1); RDW 13.2 % (11.5-14.5); WBC 19.67 X1000 (4.8-10.8)
[2019-11-17 15:35] LABS: INR 0.95; PROTIME 12.7 Seconds (11.0-16.0); PTT 25.1 Seconds (22.3-41.8)
--- NOTE | 2019-11-17 15:36 | Diag Imaging Result Doc PS360 ---
EXAM: KUB ABDOMEN 11/17/2019 HISTORY: recent SBO, increased pain TECHNIQUE: KUB COMMENT: There is still some dilatation of small bowel loops in the upper and mid abdomen. Risk fecalized contents in the right abdomen which appears to be just proximal to the ostomy. A similar appearance was present on the CT of 11/06/2019. IMPRESSION: Worsened fecalization of contents in the distal small bowel just proximal to the ostomy. Electronically signed by Kulwant Thompson 11/17/2019 3:33 PM
[2019-11-17 16:09] LABS: AGAP 22; ALB/GLOB RATIO 1.1; ALBUMIN 4.1 g/dL (3.5-5.0); ALKALINE PHOSPHATASE 84 U/L (32-122); BUN 6 mg/dL (8-22); CALCIUM 8.7 mg/dL (8.8-10.2); CHLORIDE 97 mmol/L (98-107); COSMO 276; CREATININE 0.6 mg/dL (0.7-1.2); ESTIMATED GFR > 60; GLUCOSE 115 mg/dL (70-104); GOT 55 U/L (10-34); GPT 44 U/L (10-44); POTASSIUM 3.8 mmol/L (3.5-5.1); SODIUM 139 mmol/L (136-145); TCO2 20 mmol/L (25-35)
[2019-11-17] MEDS ORDERED: ZOFRAN IV ONE (16:29)
[2019-11-17] MEDS ORDERED: MORPHINE IV ONE ×2 (16:29→20:13)
[2019-11-17] MEDS ORDERED: NS 1,000 ML IV ONE (16:30)
[2019-11-17 16:44] LABS: BANDS 6 % (0-1); EOS 1 % (1-10); LYMPHS 6 % (21-51); MONO 3 % (1-9); SEGS 84 % (42-75)
--- NOTE | 2019-11-17 17:51 | Diag Imaging Result Doc PS360 ---
EXAM: CT ABD/PELVIS W/IV CONT ONLY 11/17/2019 HISTORY: abd pain, SBO TECHNIQUE: This exam was performed using automated exposure control, adjustment of mA or kV according to patient size, and/or use of iterative reconstruction technique. COMMENT: The current study is compared with the previous examination of 11/06/2019. There is some ill-defined opacity in both lower lobes which is associated with some degree of bronchiectasis particularly in the right lower lobe. This has not changed significantly since the previous study. There is some retained fluid contents in the stomach. The NG tube which was present on the previous study has apparently been removed. There are multiple small densely calcified gallstones. The gallbladder is stable in appearance. The liver is hypodense suggesting fatty change. The spleen adrenal glands and pancreas are stable in appearance. The kidneys are without evidence of hydronephrosis masses or stones. The aorta is not distended. The mesenteric and renal arteries are patent. There is dilatation of the distal small bowel with fluid and in the case of the most distal segment proximal to the ostomy in the right lower quadrant there is fecalization of the contents of the bowel, which has worsened since the previous study (and which was also demonstrated and reported on the basis of a recent KUB.) There is some free fluid present in the right paracolic gutter region which was not present at the time the previous study. Pelvis: The urinary bladder is not distended. The regional skeleton is stable in appearance. IMPRESSION: 1. Basilar pulmonary fibrosis and bronchiectasis, stable since 11/06/2019. 2. Distal small bowel obstruction presumably due to stricture at the ileostomy, exacerbated by fecalization of bowel contents proximal to this point. Electronically signed by Kulwant Thompson 11/17/2019 5:49 PM
[2019-11-17] MEDS ORDERED: ZOSYN 3.375 GM in NS 50 ML IV ONE (17:59)
--- NOTE | 2019-11-17 20:10 | GENERAL SURGERY CONSULTATION ---
DATE: 11/17/2019 REASON FOR CONSULTATION: Decreased ostomy output. HISTORY OF PRESENT ILLNESS: This is a 69-year-old gentleman known to me. 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 He also underwent exploratory laparotomy by me back in July for a bowel obstruction that was caused by a phytobezoar. He has an ileostomy. He was recently admitted on the and was discharged on the with similar decrease in ostomy output. He was doing okay. His volume output was actually quite high. However, over the course of the day it has decreased after resumption of normal food. He has poor dentition and tends to not chew his food well, and we have discussed this matter with him. He he does not take Imodium. He denies any nausea, vomiting, just decreased output. MEDICAL HISTORY: History of B-cell lymphoma, history of toxic colitis, hypertension, gastroesophageal reflux, chronic pain, anxiety, depression, and history of alcohol induced seizures. SURGICAL HISTORY: Total abdominal colectomy with end ileostomy, finger amputation, cervical laminectomy, Port-A-Cath, exploratory laparotomy with lysis of adhesions and reduction of phytobezoar via the ileostomy. SOCIAL HISTORY: No current tobacco, alcohol. He has got family here with him. FAMILY HISTORY: Reviewed and noncontributory 10. REVIEW OF SYSTEMS: A 10 point review of systems and negative otherwise than mentioned in the HPI. PHYSICAL EXAMINATION: On exam, he is afebrile, pulse 99, blood pressure 162/99, oxygen saturation 93%.General: He is alert. HEENT: No scleral icterus. No cervical mass. Cardiovascular: Normal rate. Pulmonary: No increased work of breathing. Abdomen: Soft. Midline incision intact. His ostomy is pink and viable. On digital examination, it is patent to below the fascia, but I could palpate formed stool below the level fascia. Lymphatic: No cervical, axillary or inguinal adenopathy. Peripheral vascular: No lower extremity edema. LABS: White count 19, but his hematocrit is up to 49. This is concentrated from previous, platelets 200,000, creatinine 0.6 bilirubin is normal. I reviewed his CT scan that shows changes consistent with distal bowel obstruction at the level of a level of fascia with fecalization of small bowel more proximally. ASSESSMENT AND PLAN: A 69-year-old gentleman with a bowel obstruction. This does not seem to be adhesion related. The transition is just at the ileostomy and goes to the fascia, although this is widely patent on digital examination. I suspect that this may be some inspissated stool here. I have recommended stool softeners as well as maybe even ostomy irrigations. Given the fact he is not vomiting, he does not have a lot of gastric distention, we will hold off on nasogastric tube as I think this will be treated relatively easily. He is passing gas and is not completely obstructed. I discussed the plan with the patient. He understands we will limit his p.o. and encourage only ice chips today. He is being admitted to the hospitalist. We will follow along. cc: Whitney Perry MD
[2019-11-17] MEDS ORDERED: APRESOLINE IV PRN (23:14)
[2019-11-18] MEDS ORDERED: ZOFRAN IV PRN (00:42)
[2019-11-18] MEDS ORDERED: OFIRMEV 1000 MG/ISOTONIC SOLN 1,000 MG/100 ML BOTTLE IV PRN (00:42)
[2019-11-18] MEDS: DILAUDID IV PRN ×8 (01:03→22:15)
[2019-11-18] MEDS: KEPPRA 1,500 MG/NS 1,500 MG/100 ML IVPB IV SCH ×2 (02:05→15:44)
[2019-11-18] MEDS: NS 1,000 ML IV SCH ×2 (02:05→15:42)
[2019-11-18 02:29] LABS: URINE SOURCE CLEAN CATCH
[2019-11-18] MEDS: ZOSYN 3.375 GM in NS 50 ML IV SCH ×4 (02:41→20:09)
[2019-11-18 02:48] LABS: BILIRUBIN URINE NEGATIVE (NEGATIVE); BLOOD URINE NEGATIVE (NEGATIVE); COLOR YELLOW; GLUCOSE URINE NEGATIVE (NEGATIVE); KETONE URINE 10 mg/dL (NEGATIVE); LEUKOCYTES URINE NEGATIVE (NEGATIVE); NITRITE URINE NEGATIVE (NEGATIVE); PROTEIN URINE TRACE mg/dL (NEGATIVE); TURBIDITY URINE CLEAR (CLEAR); UROBILINOGEN URINE NORMAL (NORMAL)
[2019-11-18 02:50] LABS: UR EPITHELIAL CELLS <10 /HPF (<10); URINE BACTERIA NEGATIVE /HPF; URINE RBC <10 /HPF (<10); URINE WBC <10 /HPF (<10)
[2019-11-18 05:04] LABS: BASO# 0.02 X1000 (0.0-0.2); BASO% 0.2 % (0.0-0.8); EOS# 0.02 X1000 (0.0-0.7); EOS% 0.2 % (0.0-10.0); HEMATOCRIT 52.3 % (42.0-52.0); HEMOGLOBIN 17.8 g/dL (14.0-18.0); IMM GRAN# 0.02 X1000 (0.0-0.04); IMM GRAN% 0.2 % (0.0-0.5); LYMPH# 0.76 X1000 (1.2-3.4); LYMPH% 7.2 % (20.5-51.1); MCV 102.8 FL (81-99); MONO# 0.55 X1000 (0.11-0.59); MONO% 5.2 % (1.7-9.3); MPV 11.2 FL (7.4-10.4); NEUT# 9.12 X1000 (1.4-6.5); PLT 169 X1000 (130-400); RBC 5.09 XMIL (4.7-6.1); RDW 13.4 % (11.5-14.5); WBC 10.49 X1000 (4.8-10.8)
[2019-11-18 05:23] LABS: INR 1.03; PROTIME 13.6 Seconds (11.0-16.0)
[2019-11-18 05:27] LABS: PTT 19.2 Seconds (22.3-41.8)
[2019-11-18 05:33] LABS: AGAP 17; ALB/GLOB RATIO 1.7; ALBUMIN 4.1 g/dL (3.5-5.0); ALKALINE PHOSPHATASE 69 U/L (32-122); BUN 15 mg/dL (8-22); CALCIUM 8.4 mg/dL (8.8-10.2); CHLORIDE 96 mmol/L (98-107); COSMO 274; CREATININE 0.6 mg/dL (0.7-1.2); ESTIMATED GFR > 60; GLUCOSE 122 mg/dL (70-104); GOT 37 U/L (10-34); GPT 34 U/L (10-44); POTASSIUM 4.7 mmol/L (3.5-5.1); SODIUM 136 mmol/L (136-145); TCO2 23 mmol/L (25-35); TOTAL BILIRUBIN 1.39 mg/dL (0.20-1.00); TOTAL PROTEIN 6.5 g/dL (6.3-8.3)
[2019-11-18] MEDS ORDERED: MAGNESIUM SULFATE 2 GM/S.W.I. 2 GM/50 ML IVPB IV ONE (05:55)
[2019-11-18] MEDS: SODIUM CHLORIDE 0.9% INJ SCH (06:19)
[2019-11-18] MEDS: PROTONIX IV SCH (06:19)
--- NOTE | 2019-11-18 07:21 | Diag Imaging Result Doc PS360 ---
EXAM: CHEST-PORTABLE 11/18/2019 HISTORY: Leukocytosis,Hx pulmonary fibrosis COPD TECHNIQUE: AP portable at 0552 COMMENT: The inspiration is suboptimal. There is ill-defined opacity in the left base and the upper mid right lung. This is similar to 09/14/2019 although it appears slightly worse in the right upper lobe. Considering differences in inspiration there has been no appreciable change since 04/01/2019. IMPRESSION: Pulmonary fibrotic changes. Poor inspiration. Electronically signed by Kulwant Thompson 11/18/2019 7:18 AM
--- NOTE | 2019-11-18 07:22 | EKG Report ---
Test Performed on : 11/18/2019 07:05:29 AM Test Reason : Elevated Troponin Blood Pressure : / mmHG Vent. Rate : 113 BPM Atrial Rate : 113 BPM P-R Int : 186 ms QRS Dur : 074 ms QT Int : 310 ms P-R-T Axes : 046 -14 037 degrees QTc Int : 425 ms Sinus tachycardia. Otherwise normal ECG When compared with ECG of 14-SEP-2019 19:56, (Unconfirmed) premature supraventricular complexes. are no longer present Confirmed by Venessa Liriano MD ([id number]) on 11/18/2019 8:41:46 AM
--- NOTE | 2019-11-18 08:44 | HISTORY AND PHYSICAL ---
PRIMARY CARE PROVIDER: Dr. Georgie Mcdermott. DATE AND TIME: 11/17/2019 at 2045. CHIEF COMPLAINT: Abdominal pain. HISTORY OF PRESENT ILLNESS: Mr. Lynch is a 69-year-old male who presented to the ER this evening on November 17 with complaints of abdominal pain and decreased ostomy output. The patient did initially undergo a total abdominal colectomy with end ileostomy in 2013. He did have an exploratory laparotomy with lysis of adhesions and reduction of a phytobezoar via the ileostomy with Dr. Perry in July 2019. He was just recently admitted to our facility on 11/06/2019 was discharged on 11/10/2019. He was treated for small bowel obstruction. Fortunately, this did resolve and did not require any other interventions. He states the pain started last night on 11/16/2019. He reports that it is an achy cramping type pain in nature. He states it is mainly in the right lower quadrant just around his ileostomy site. He denies any nausea, vomiting. He denies any hematochezia or melena. He denies any fever, body aches, or chills. He denies any headache, dizziness, chest pain. The patient does report occasional shortness of breath. He does have a history of pulmonary fibrosis and COPD, though he states this has not worsened. He denies any cough. He denies any dysuria or urinary frequency. He denies any pain or swelling in the extremities. Upon evaluation in the ER, he was noted to have leukocytosis with white blood cell count of 19,670. Hemoglobin and hematocrit were within normal limits. Electrolytes and chemistries were unremarkable. Urinalysis did not show any signs of infection. Given his surgical history and recent small bowel obstruction, they did perform a CT of the abdomen and pelvis with IV contrast only in the ER. It did show basilar pulmonary fibrosis and bronchiectasis, which is stable since 11/06/2019. There was a distal small-bowel obstruction presumably due to a stricture at the ileostomy exacerbated by fecalization of bowel contents proximal to this point. Dr. Perry with Surgery was notified. He has evaluated the patient. He did note that since the patient was not having any vomiting and did not have a lot of gastric distention that he would hold off on nasogastric tube at this time. The patient is going to be NPO. Dr. Perry wants to encourage only ice chips today. He was admitted to the surgical floor with telemetry. REVIEW OF SYSTEMS: A 14-point review of systems was conducted with the patient and all were negative except for pertinent positives mentioned in the HPI. PAST MEDICAL HISTORY: 1. Hypertension. 2. Seizures. 3. Restless legs syndrome. 4. History of B-cell lymphoma status post chemotherapy, followed by Dr. Yeh. 5. Anxiety. 6. Chronic obstructive pulmonary disease. 7. History of a small bowel obstruction in July 2019 for which he did have a resection and ileostomy placement. 8. Gastroesophageal reflux disease. 9. Chronic pain. 10. Depression. PAST SURGICAL HISTORY: 1. Total abdominal colectomy with end ileostomy in 2013. 2. Exploratory laparotomy with lysis of adhesions and reduction of a phytobezoar via the ileostomy in July. 3. 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 4. Cervical laminectomy. 5. Port-A-Cath placement. 6. Four surgeries on his right hand. 7. Two surgeries on his left. SOCIAL HISTORY: The patient denies any tobacco or illicit drug use. He does report he drinks 2 beers every day. The patient states that sometimes he does become shaky if he does not have his 2 beers, though he denies to me having any seizures when he has gone without having alcohol. FAMILY HISTORY: There is family history of heart disease. ALLERGIES: Patient has no known allergies. HOME MEDICATIONS: 1. Clonidine 0.1 mg p.o. b.i.d. 2. Cymbalta 60 mg p.o. daily. 3. Trilogy Ellipta 100/62.5/25 1 puff inhaled daily. 4. Neurontin 4 mg p.o. t.i.d. 5. Keppra 1500 mg p.o. b.i.d. 6. Meloxicam 15 mg p.o. daily. 7. Prilosec 40 mg p.o. daily at 0700. 8. Requip 0.5 mg p.o. at bedtime. 9. Sucralfate 1 g p.o. t.i.d. DIAGNOSTIC DATA: White blood cell count is 19,670, hemoglobin 17.2, hematocrit 49.3, platelet count 200,000. PT 12.7, INR 0.95, PTT is 25.1. Sodium 139, potassium 3.8, chloride 97, serum bicarbonate is 20, BUN 6, creatinine 0.6, GFR greater than 60, glucose 115, calcium 8.7. Liver function tests within normal limits except for AST is slightly elevated at 55. Urinalysis obtained via clean catch was positive for trace protein and ketones, negative for glucose, blood, nitrites, leukocytes, white blood cells, or bacteria. CT abdomen and pelvis showed basilar pulmonary fibrosis and bronchiectasis stable since 11/06/2019. There is a distal small-bowel obstruction presumably due to stricture at the ileostomy, exacerbated by fecalization of bowel contents proximal to this point. Please see full CT report for all detailed findings. PHYSICAL EXAMINATION: VITAL SIGNS: Temperature 98.4 degrees, heart rate 123, respirations 20, blood pressure is 156/113, oxygen saturation of 96% on room air. GENERAL: Mr. Lynch is a pleasant 69-year-old male. He was resting in the ER stretcher. He was in no acute distress. He was awake, alert, and able answer questions appropriately. HEENT: Head is atraumatic, normocephalic. Pupils are equal, round, reactive to light, were 3 mm bilaterally and brisk. Oral mucosa is moist. NECK: Neck is supple. Trachea midline. CARDIOVASCULAR: Patient has S1-S2 present. No murmurs, gallops, rubs appreciated with a regular rate and rhythm. PULMONARY: Patient has symmetrical chest expansion bilaterally. Lung sounds were clear to auscultation with bilateral full travis. ABDOMEN: Soft. He did report tenderness upon palpation around his ileostomy site. His abdomen does appear to be distended. Bowel sounds were present in all 4 quadrants and were normoactive. EXTREMITIES: No cyanosis or edema present. Pulse, motor and sensory is intact in all extremities. Radial and pedal pulses were 2+ bilaterally. INTEGUMENTARY: The patient's skin is pink, warm, and dry. NEUROLOGICAL: Patient is alert and oriented to person, place, and time. He is able to move all extremities. There are no focal neurological deficits noted. ASSESSMENT AND PLAN: 1. Partial small bowel obstruction. For this, the patient will be placed NPO. Dr. Perry of Surgery has evaluated the patient. He does want to hold off on NG tube placement at this time given that the patient is not having any vomiting. He has no overt gastric distention. He is going to allow him to be NPO with ice chips. We will continue with gentle intravenous hydration. We have implemented p.r.n. antiemetics and pain medicine. The patient does have leukocytosis with a white blood cell count of 19,670. He has been afebrile, though we will cover him with antibiotic of Zosyn IV q.6 hours. Blood cultures have been obtained as well. We will continue to follow the recommendations of Dr. Perry. 2. History of total abdominal colectomy with end ileostomy in 2013 and a recent exploratory laparotomy with lysis of adhesions and reduction of phytobezoar via the ileostomy with Dr. Perry in July 2019. 3. Leukocytosis. Given the patient's abdominal complaints and CT findings, we have gone ahead and placed him on antibiotics of Zosyn IV q.6 hours. Urinalysis did not show any signs of infections. Lung sounds are clear to auscultation. Blood cultures have been obtained. We will repeat a CBC in the morning. We will continue to follow. 4. History of seizures. The patient is n.p.o. We have placed his Keppra to be given IV 1500 mg b.i.d. 5. Chronic obstructive pulmonary disease. The patient is not in respiratory distress. Lung sounds are clear to auscultation. He is maintaining adequate oxygen saturations on room air. We have continued his Trilogy Ellipta. 6. Hypertension. We will place p.r.n. antihypertensives at this time. The patient is NPO. 7. History of B-cell lymphoma. 8. Deep vein thrombosis prophylaxis. He is provided with sequential compression devices. 9. Daily alcohol use. The patient reports that he drinks 2 beers every day. He does report that he occasionally become shaky when he does not have his 2 beers. We will closely monitor the patient for any signs of alcohol withdrawal. We will continue to follow this closely. The patient has been placed on the surgical floor with telemetry. He will have vital signs every 4 hours. We will do strict intake and output and incentive spirometry. We will repeat a CBC, CMP and magnesium in the morning. Further orders and recommendations pending hospital course, diagnostic studies, and physician evaluation. Dictated by SANDRA Steel for Claudio Gooden MD cc: MD YARELI Capellan
--- NOTE | 2019-11-18 09:56 | PROGRESS NOTE ---
DATE: 11/18/2019 Mr. Lynch was admitted yesterday, on 11/17/2019. He is a patient of Dr. Georgie Mcdermott and followed by Dr. Perry. Came in with abdominal pain. A 69-year-old who presented to the emergency room with complaints of abdominal pain, decreased ostomy output. The patient does have a recent history of resection. Ileostomy performed per Dr. Perry in July 2019. He was recently admitted to our facility on 11/06/2019 and discharged on 11/10/2019, treated for a small bowel obstruction. Fortunately, this did resolve and it did not require intervention. The pain started again on 11/16/2019. Reports he had an achy, cramping type pain in nature, mainly in the right lower quadrant just around his ileostomy site. He denies any nausea or vomiting. Denies any hematochezia or melena. Denies any fever, body aches, or chills. Admitted for a small bowel obstruction. PAST MEDICAL HISTORY: 1. Hypertension. 2. Seizures. 3. Restless legs syndrome. 4. History of B-cell lymphoma, status post chemotherapy, followed by Dr. Yeh. 5. Anxiety. 6. Chronic obstructive pulmonary disease. 7. History of small bowel obstruction in July 2019 for which he had a resection and ileostomy placement. 8. Gastroesophageal reflux disease. 9. Chronic pain. 10. Depression. SURGICAL HISTORY: 1. Total abdominal colectomy and end-ileostomy in 2013. 2. Exploratory laparotomy, lysis of adhesions, reduction of a phytobezoar via the ileostomy in July. 3. 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 4. Cervical laminectomy. 5. Port-A-Cath placement. 6. Four surgeries on his right hand. 7. Two surgeries on his left hand, I believe. PHYSICAL EXAMINATION: Today, he is awake, alert, comfortable. Abdomen feels distended. Temperature 97.9 degrees, pulse 119, respirations 18, blood pressure 141/95. Pupils are equal and round. Lungs are clear in all lung travis. Cardiovascular Examination: Regular rhythm and rate without murmur or S3. Abdomen is distended. Absent bowel sounds, diminished bowel sounds in all quadrants. Weight 183 pounds. Height 5 feet 5 inches. Chest x-ray from today, pulmonary fibrotic changes, poor inspiration. This is a 69-year-old with bowel obstruction, does not seem to be adhesion-related. The transition is just at the ileostomy and goes to the fascia, although the patient was widely open on Dr. Perry's digital examination and so may be some inspissated stool here. They are going to try some stool softeners and may try even ostomy irrigations. Because he is not vomiting, does not have a lot of gastric distention, we will hold off on a G-tube. cc: Jovani Leonardo MD
[2019-11-18 12:59] LABS: AGAP 15; BUN 17 mg/dL (8-22); CALCIUM 8.2 mg/dL (8.8-10.2); CHLORIDE 97 mmol/L (98-107); COSMO 275; CREATININE 0.7 mg/dL (0.7-1.2); ESTIMATED GFR > 60; GLUCOSE 132 mg/dL (70-104); MAGNESIUM 1.7 mg/dL (1.5-2.7); POTASSIUM 4.1 mmol/L (3.5-5.1); SODIUM 136 mmol/L (136-145); TCO2 24 mmol/L (25-35)
[2019-11-18] MEDS: NON-FORMULARY BULK MED INH SCH (17:05)
--- NOTE | 2019-11-18 19:54 | GENERAL SURGERY PROGRESS NOTE ---
DATE: 11/18/2019 SUBJECTIVE: He began having some ostomy output. Some crampy abdominal pains, but no vomiting. No fevers. Blood pressures have been okay. Low grade tachycardia intermittently, but this has been improving with his hydration. PHYSICAL EXAMINATION: Abdomen: Soft, nontender, nondistended. There is stool in the ostomy bag. LABS: White count is 10, hematocrit is 52. Creatinine 0.7. Bilirubin is 1.39. ASSESSMENT AND PLAN: A 69-year-old gentleman with distal small bowel obstruction related to an ileostomy. It seems to be right at the distal aspect of his ostomy. It is patent below the fistula on palpation. As such, I suspect he has some inspissated stool here. He has a tendency to high residual diet and does not chew his food well due to poor dentition. I am going to start him on MiraLAX twice daily. We may need to irrigate his stoma tomorrow. cc: Whitney Perry MD
[2019-11-18] MEDS: MIRALAX PO SCH (20:16)
[2019-11-19] MEDS: DILAUDID IV PRN ×7 (01:01→20:56)
[2019-11-19] MEDS: KEPPRA 1,500 MG/NS 1,500 MG/100 ML IVPB IV SCH ×2 (01:42→14:03)
[2019-11-19] MEDS: ZOSYN 3.375 GM in NS 50 ML IV SCH ×4 (02:18→20:49)
[2019-11-19] MEDS: NS 1,000 ML IV SCH (03:09)
[2019-11-19] MEDS: SODIUM CHLORIDE 0.9% INJ SCH (05:37)
[2019-11-19] MEDS: PROTONIX IV SCH ×2 (05:37→06:02)
[2019-11-19] MEDS: MIRALAX PO SCH ×3 (08:33→20:50)
[2019-11-19] MEDS: NON-FORMULARY BULK MED INH SCH (09:16)
--- NOTE | 2019-11-19 09:56 | PROGRESS NOTE ---
DATE: 11/19/2019 SUBJECTIVE: Mr. Lynch is doing better and he is starting to get some output from his colostomy, feels better. OBJECTIVE: Vital signs: Remains afebrile, temperature 98.3 degrees, pulse 65, respirations 19, blood pressure 149/86. HEENT: Pupils are equal and round. Lungs: Clear in all lung travis. Cardiovascular: Regular rhythm and rate without murmur or S3. URINE OUTPUT: 2500 mL. ASSESSMENT AND PLAN: A 69-year-old with distal small-bowel obstruction related to ileostomy. Seems to be right at the distal aspect of the ostomy and is patent below the fistula on palpation, so suspicion is for inspissated stool and the tendency to a high residual diet. He does not chew his food well due to poor dentition, and so he is on MiraLAX twice a day and we will see if his stoma needs irrigation. He is status post exploratory laparotomy with lysis of adhesion, reduction of ileostomy in July. Continue present orders. Hopefully he gets to go home soon. cc: Jovani Leonardo MD
[2019-11-20] MEDS: KEPPRA 1,500 MG/NS 1,500 MG/100 ML IVPB IV SCH ×2 (02:14→13:55)
[2019-11-20] MEDS: ZOSYN 3.375 GM in NS 50 ML IV SCH ×4 (02:59→21:10)
[2019-11-20] MEDS: PROTONIX IV SCH (06:50)
[2019-11-20] MEDS: SODIUM CHLORIDE 0.9% INJ SCH (06:50)
[2019-11-20] MEDS: DILAUDID IV PRN ×4 (06:55→18:20)
[2019-11-20] MEDS: MIRALAX PO SCH ×2 (08:19→21:11)
[2019-11-20] MEDS: NON-FORMULARY BULK MED INH SCH (09:01)
--- NOTE | 2019-11-20 09:51 | PROGRESS NOTE ---
DATE: 11/20/2019 Mr. Lynch is eating and his bowels are moving, so he feels pretty good. Hopefully he can go home today. We will see how he does. OBJECTIVE: Vital Signs: Afebrile, temp 98.7 degrees, pulse 95, respirations 18, blood pressure 161/90. HEENT: Pupils are equal and round. Lungs: Are clear in all lung travis. Cardiovascular: Regular rhythm and rate without murmur or S3. Urine output is 7600 mL, good urine output. ASSESSMENT AND PLAN: Distal small bowel obstruction related to ileostomy, seems to be right at the distal aspect of the ostomy. Doing better, eating so he might get to go home today. Continue his MiraLAX and looking over his current orders, I do not see any changes. He is getting levetiracetam 1500 mg IV q.12. On admission, the patient had abdominal pain and I think we are given the levetiracetam because his bowels were not working, so we will switch that levetiracetam back over to p.o. Looking back at his home medicines, he is on clonidine 0.1 mg b.i.d., Cymbalta 60 mg a day, Trelegy Ellipta 100/62/25 1 puff a day, Neurontin 400 mg p.o. t.i.d., and Keppra 1500 mg b.i.d., Mobic 15 mg daily, Requip 0.5 mg a day and Carafate 1 g p.o. t.i.d., omeprazole 40 mg a day. cc: Jovani Leonardo MD
--- NOTE | 2019-11-20 14:28 | PROGRESS NOTE ---
DATE: 11/20/2019 SUBJECTIVE: Mr. Lynch has an ileostomy and midline incision. He has been seen by Dr. Perry because of obstruction. His ileostomy is now working. He is tolerating a regular diet, but last time he was discharged, he was readmitted fairly quickly, so will have him continue his diet and follow his output to be sure that there are no ongoing problems with intermittent obstruction. cc: Laney Salas MD
[2019-11-21] MEDS: DILAUDID IV PRN ×7 (00:11→23:30)
[2019-11-21] MEDS: KEPPRA 1,500 MG/NS 1,500 MG/100 ML IVPB IV SCH ×2 (02:30→14:51)
[2019-11-21] MEDS: ZOSYN 3.375 GM in NS 50 ML IV SCH ×4 (02:31→19:36)
[2019-11-21] MEDS: PROTONIX IV SCH ×2 (05:51→06:29)
[2019-11-21] MEDS: SODIUM CHLORIDE 0.9% INJ SCH (05:51)
[2019-11-21] MEDS: NON-FORMULARY BULK MED INH SCH (08:35)
[2019-11-21] MEDS: MIRALAX PO SCH ×2 (09:28→20:10)
--- NOTE | 2019-11-21 10:30 | PROGRESS NOTE ---
DATE: 11/21/2019 Mr. Delta Lynch has an ileostomy, which has intermittently become obstructed over the last several months. He is now tolerating a regular diet. He does have output from his ileostomy, but does have some crampy intermittent abdominal pain. His heart rate is 73 to 105, blood pressure 158/85, O2 saturation 95%. His midline incision is healed. His ileostomy seems to be functioning. He is on a GI soft diet. Dr. Sumit Perry returns tomorrow. cc: Laney Salas MD
--- NOTE | 2019-11-21 15:13 | PROGRESS NOTE ---
DATE: 11/21/2019 SUBJECTIVE: He did have a little abdominal discomfort last night, but he is eating well. His bowels seem to be moving well. He is anticipating going home today. OBJECTIVE: Vital Signs: Temp 98.3 degrees, pulse 76, respirations 20, blood pressure 163/84. HEENT: Pupils are equal and round. Lungs: Clear in all lung travis. Cardiovascular: Regular rhythm and rate without murmur or S3. Urine output is 5300 mL. ASSESSMENT AND PLAN: He has an ileostomy. Intermittently has become obstructed over the last several months. He is tolerating regular diet. He does have some intermittent crampy pain. He is on a gastrointestinal soft diet. He, I think, was hoping to go home today. I will check back with him later on this afternoon, and maybe he can be discharged. cc: Jovani Leonardo MD
[2019-11-21] MEDS ORDERED: MYLICON PO PRN (16:44)
[2019-11-22] MEDS: KEPPRA 1,500 MG/NS 1,500 MG/100 ML IVPB IV SCH ×2 (02:50→15:52)
[2019-11-22] MEDS: ZOSYN 3.375 GM in NS 50 ML IV SCH ×3 (02:50→15:05)
[2019-11-22] MEDS: DILAUDID IV PRN ×4 (04:18→15:52)
[2019-11-22] MEDS: PROTONIX IV SCH (06:13)
[2019-11-22] MEDS: SODIUM CHLORIDE 0.9% INJ SCH (06:13)
[2019-11-22] MEDS: MIRALAX PO SCH (08:16)
[2019-11-22] MEDS: NON-FORMULARY BULK MED INH SCH (08:47)
[2019-11-22 15:03] VITALS: BP 166/91
--- NOTE | 2019-11-22 16:04 | DISCHARGE SUMMARY ---
ADMISSION DATE: 11/17/2019 DISCHARGE DATE: 11/22/2019 He is a patient of Dr. Georgie Mcdermott. HISTORY: A 69-year-old presented with abdominal pain. Presented to the emergency room on November 17 with complaints of abdominal pain, decreased ostomy output. The patient does have a recent history of having resection and ileostomy performed by Dr. Perry in July of 2019. Just recently admitted to the facility on 11/06/2019, discharged on 11/10/2019, treated for small bowel obstruction. Fortunately, it did resolve. Reports that he started having aching, cramping pain again. States it is mainly on the right side, but it is around his ileostomy site. He denies any nausea, vomiting. Denies any hematochezia or melena. Denies any fever, body aches, or chills. No headache, dizziness, or chest pain. The patient did report occasional shortness of breath. Does have a history of pulmonary fibrosis and COPD, but this has not worsened apparently. On evaluation in the emergency room, he had leukocytosis. White blood cell count was 19,670. Hemoglobin and hematocrit were normal limits. Electrolytes and chemistries unremarkable. Urinalysis showed no sign of infection. Performed a CT of the abdomen and pelvis, IV contrast. It did show some basilar pulmonary fibrosis, bronchiectasis which was stable since 11/06/2019. Distal small bowel obstruction, presumably due to stricture at the ileostomy, exaggerated by fecalization of bowel contents proximal to this point. Was admitted to the hospital. PAST MEDICAL HISTORY: 1. Hypertension. 2. Seizures. 3. Restless legs syndrome. 4. History of B-cell lymphoma, status post chemotherapy per Dr. Yeh. 5. Anxiety. 6. Chronic obstructive pulmonary disease. 7. History of small bowel obstruction in July of 2019 for which he did have resection and ileostomy placement. 8. Gastroesophageal reflux disease. 9. Chronic pain. 10. Depression. PAST SURGICAL HISTORY: 1. Total abdominal colectomy with end ileostomy in 2013. 2. Exploratory laparotomy with lysis of adhesions and reduction of pedal bezoar via ileostomy in July of 2019. 3. 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 4. Cervical laminectomy. 5. Port-A-Cath placement. 6. Four surgeries on his right hand. 7. Two surgeries on his left hand in the past. HOSPITAL COURSE: So admitted for partial small bowel obstruction and placed NPO. Dr. Perry was following him. He is very familiar with him. A 69-year-old gentleman with bowel obstruction. Does not seem to be adhesion related. The transition seems to be just at the ileostomy and goes back to the fascia, though this is widely patent on his digital exam and suspected some inspissated stool. Recommended stool softeners and maybe even ostomy irrigation. He was not nauseated, was not vomiting. Did not use an NG tube. He seemed to show improvement and so we put him on MiraLAX 17 g twice a day. We were able to advance his diet. He did still have some abdominal cramping, but wanted to go home on 11/22/2019. DISCHARGE MEDICATIONS: We will put him back on his clonidine 0.1 mg b.i.d., Cymbalta 60 mg a day, Trelegy Ellipta which is 100/62.5/25 1 puff daily, gabapentin 400 mg p.o. t.i.d., Keppra 1500 mg p.o. b.i.d., Mobic 15 mg daily, Prilosec 40 mg a day, Requip 0.5 mg a day, Carafate 1 g p.o. t.i.d. and, of course, he will be on his MiraLAX 17 g twice a day, and he can take some Mylicon as needed for gas pain. cc: Jovani Leonardo MD
--- NOTE | 2019-11-23 00:20 | GENERAL SURGERY PROGRESS NOTE ---
DATE: 11/22/2019 SUBJECTIVE: He is tolerating a diet. His ostomy is functioning. No fevers. No tachycardia. OBJECTIVE: General: He is alert. CARDIOVASCULAR: Normal rate.Abdomen: Soft, nontender, nondistended with stool and gas in his ostomy bag. ASSESSMENT AND PLAN: A 69-year-old gentleman with resolving obstruction at the distal aspect of his ostomy. I have encouraged him to continue soft low residual diet. He will follow up with me in a week and he has is also talked to Dr. Leonardo and from a surgical perspective he is okay to go home. He may continue to need stool softeners, although his output typically is high. cc: Whitney Perry MD
== END 2019-11-22 17:23 | disposition home or self-care (01) | DRG 394 ==
LOC: SUPCPDRO → ED 14:25 → SUATTDRO 21:18 → 4N 21:18
PROVIDERS: ATTEND Emergency Medicine